=== PATIENT | female | born 1955 | race African-American/Black ===

== ENCOUNTER 2019-09-24 00:46 | Observation (INO) | payer BC ==
--- OUTSIDE RECORDS SUMMARY | 2019-09-24 00:49 | XMS REPORT | Clinical Summary ---
:1955 Author Organization [facility] Address [address] [place] [address] Care Team Providers Name Role Phone Unavailable Primary Care Provider Unavailable Allergies Active Allergy Reactions Severity Noted Date Comments Cephalexin 11/23/2016 rash Medications Medication Sig Dispensed Refills Start Date End Date Status isosorbide Take 60 mg by mouth 2 0 Active mononitrate (IMDUR) (two) times daily. 60 MG 24 hr tablet metoprolol Take 100 mg by mouth 0 Active (LOPRESSOR) 100 MG 2 (two) times daily. tabletIndications: high blood pressure amLODIPine Take 10 mg by mouth 0 Active (NORVASC) 10 MG daily. tablet lisinopril-hydroCHL Take 2 tablets by 0 Active OROthiazide mouth daily. (PRINZIDE,ZESTORETI C) 20-12.5 mg per tablet glimepiride Take 4 mg by mouth 0 Active (AMARYL) 4 MG every morning before tablet breakfast. famotidine (PEPCID) Take 1 tablet (20 mg 60 tablet 0 7 Active 20 MG tablet total) by mouth 2 (two) times daily. insulin detemir Inject 0.15 mLs (15 5 packet 0 11/27/2016 Active (LEVEMIR FLEXPEN) Units total) 100 unit/mL (3 mL) subcutaneously every InPn injection morning. Active Problems Problem Noted Date Received tissue plasminogen activator (t-PA) less than 24 hours prior to 11/24/2016 arrival Essential hypertension 11/24/2016 Mixed hyperlipidemia 11/24/2016 Acute ischemic stroke 11/23/2016 Social History Tobacco Use Types Packs/Day Years Used Date Never Smoker Smokeless Tobacco: Never Used Alcohol Use Drinks/Week oz/Week Comments Yes 1 Glasses of wine 0.6 Sex Assigned at Date Recorded Not on file Job Start Date Occupation Industry Not on file Not on file Not on file Travel History Travel Start Travel End No recent travel history available. Last Filed Vital Signs Not on file Plan of Treatment Not on file Results Not on fileafter 09/23/2018 Insurance Payer Benefit Plan / Subscriber ID Type Phone Address Group BLUE CROSS/BLUE BCBS PPO POS EPO xxxxxxxxxxxx PPO [phone] [address] [place] [address] Advance Directives For more information, please contact:[place] [id number] [place], [place] [phone] Code Status Date Activated Date Inactivated Comments Full Code 11/23/2016 11:43 AM 11/27/2016 9:42 PM This code status was determined by: Patient
--- OUTSIDE RECORDS SUMMARY | 2019-09-24 00:49 | XMS REPORT | Continuity of Care Document ---
:1955 Author Organization [facility] Care Team Providers Name Role Phone Baboom Unavailable Un available Problems Problem Status Onset Classification Date Comments Sourc e Date Reported Encounter for 11/17/19 06/01/2018 [facility] [place] screening 18 Women's mammogram for malignant neoplasm of breast Z12.31 - ENCNTR Active 08/13/19 Alfred rial SCREEN MAMMOGRAM 18 Her snider FOR MA 436 - CVA Active 10/10/19 [facility] [place] Palpitations Active 10/22/2012 [facility] Stroke Syndrome Active 10/22/2012 [facility] Type 2 Diabetes Active 10/22/2012 [facility] Complications - Uncontrolled Hyperlipidemia Active 10/22/2012 [facility] Hypertension Active 10/22/2012 [facility] Diabetes Mellitus Resolved Problem 10/18/2012 [facility] [place] HTN Resolved Problem 10/18/2012 [facility] OPID [place] Hysterectomy Resolved Problem 10/18/2012 [facility] OPI D [place] TIA Resolved Problem 10/18/2012 [facility] OPID [place] Diabetes Resolved Problem 06/01/2018 [facility] Vict ory Mellitus(Confirme Wo men's d) Essential Resolved Problem 06/01/2018 [facility] Vict ory hypertension Women's (disorder) Hysterectomy Resolved Problem 06/01/2018 [facility] V ictory (procedure) Women's Transient Resolved Problem 06/01/2018 [facility] Vict ory ischemic attack Wome n's (disorder) Medications Medication Details Route Status Patient Ordering Order Source Instructions Provider Date Aspirin 81 MG (Active) Active [facility] Oral Tablet [facility] Isosorbide (Active) Active [facility] Mononitrate ER Physician s 30 MG Oral Tablet Extended Release 24 Hour Lisinopril 20 (Active) Active [facility] MG Oral Tablet Physician s MetFORMIN HCl (Active) Active [facility] 500 MG Oral Physicians Tablet Estradiol 2 MG (Active) Active [facility] Oral Tablet [facility]icians Lantus 100 (Active) Active [facility] UNIT/ML [facility]icians Subcutaneous Solution Norvasc 10 MG (Active) Active [facility] Oral Tablet [facility] HydrALAZINE HCl (Active) Active [facility] TABS [facility] Metoprolol (Active) Active [facility] Tartrate 100 MG Physicia ns Oral Tablet Simvastatin 40 (Active) Active [facility] MG Oral Tablet Physician s HumaLOG 100 (Active) Active [facility] UN[facility] Subcutaneous Solution Allergies, Adverse Reactions, Alerts Substance Category Reaction Severity Reaction Status Date Comments S ource type Reported Keflex TABS drug drug Active [facility] allergy allergy Physicia ns Keflex Assertion Drug Active [facility] allergy [place] Women's Immunizations No Data Provided for This Section Results No Data Provided for This Section Pathology Reports No Data Provided for This Section Diagnostic Reports Report Value Date Source Breast Mammo Scrn [place] 11/12/2017 [facility] incl CAD MA BILATERAL DIGITAL SCREENING MAMMOGRAM WITH CAD: 11/12/2017 CLINICAL: /Screening. Current study was evaluated with a Range Management Specialist d Detection (CAD) system. COMPARISON:No prior exams were available for [facility]. TECHNIQUE: Mammographic view s were obtained using digital acquisition. Current study was also evaluated with a Computer Aided Detection (CAD) system. FINDINGS: The tissue of both breasts i s heterogeneously dense, which could obscure detection of small masses. No significant masses, calci fications, or other findings are seen in either breast. Intramammary lymph node in the upper outer left breast. There is a metallic foreign body in the upper in ner left breast. IMPRESSION: BENIGN RECOMMENDATION: There is no mammographic aylin dence of malignancy. A 1 year screening mammogram is recommended. This exam was interpreted at [id number] for [facility]. Rhiannon Barnes M.D. dh/:11/14/2017 10:48:44 Sales Office Administrator(s): Brayan Alvarez [facility] letter sent: BI-RADS 1/2 Dense Mammogram BI-RADS: 2 Benign Brain w/wo contrast 10/16/2012 [facility] [place] REASON FOR EXAM: 436 Stroke syndrome. COMPARISON: Head CT 08/23/19 13. MRI of the brain 08/22/2012. Reports of a head and neck CTA 08/23/2012 and an angiogram 08/25/2012 were reviewed. TECHNIQUE: Unenhanced axial and coronal MR images of the brain were performed. Postcontrast images were performed in the axial, coronal and sagittal planes. FINDINGS: The brain volume i s age-appropriate. There are scattered foci of increased signal intensity on the T2 weighted and FLAIR sequences in the cerebral white matter most pronounced in the frontal a nd parietal lobes the larges t focus measuring approximately 7 mm. Primary differential considerations include sequela of chronic small vessel ischemic disease, migraines or demyelinating disease. There are 2 adjacent evolvin g lacunar infarcts in the right thalamus each measuring approximately 3 mm demonstrating decreased signal intensity on the precontrast T1-weighted sequence and T2 hyperintens ity corresponding to the loc ation of an acute infarction on the comparison MRI examination. Currently, there is no demonstrable restricted diffusion to suggest an acute infarction. There is no demonstra ble mass, abnormal enhanceme nt, hemorrhage, extra-axial fluid collection, midline shift or herniation. There is mucosal thickening of the ethmoid sinuses. There is a 9 mm retention cyst versus polyp in the inferior left maxillary sinus. There is leftward deviation of the nasal septum. The orbits, pituita ry fossa, internal auditory canals, mastoids, craniocervical junction and calvarium are unremarkable. Flow is demonstrated in the major arteries and venous sinuses. IMPRESSION: 1. Evolving subcentimeter lacunar infarcts in th e right thalamus. 2. Otherwise there has been no significant interval change from the comparison examination performed 08/22/2012. Please correlate clinically and consider follow- up imaging as indicated. Dictation code: 14 Consultation Notes No Data Provided for This Section Discharge Summaries No Data Provided for This Section History and Physicals No Data Provided for This Section Vital Signs No Data Provided for This Section Encounters Location Location Encounter Encounter Reason Attending ADM VT Stat Source Details Type Number For Provider Date Date Visit AUDIT [id number] 10/01 /2012 Physician s LEDA [id number] Aubrey DAVIS 10/16 Active [facility] O PID CVA [place] AUDIT [id number] 10/22 /2012 Physician s INP, [id number] 11/25 10/22 [place] Provider: /2012 BENNIE Wolfe, Status: Pen, Time: 3:30 PM [facility] Outpt Diag [id number] Trudy 11/12 11/13 [facility] Outpatient Services [place] /2017 [facility] Women's Procedures Procedure Code Date Perfomer Comments Source Hysterectomy [id number] [facility] Women's Assessment and Plan No Data Provided for This Section Plan of Care Plan of Care Date Source MRI Brain w/wo contrast [id number] 10/22/2012 [facility] 12/11/2012 Routine[N] 30 Day Event Monitor Recording 09/30/2012 Routine MRI Brain w/wo contrast 10/01/2012 [facility] 12/11/2012 Routine[N] 30 Day Event Monitor Recording 09/30/2012 Routine Social History Social History Date Source No data available for this 11/13/2017 [facility] Marital History - Single 10/22/2012 [facility] (Active) Occupation: (Active) Never A Smoker (Active) Family History Value Date Source Paternal history of 10/22/2012 [facility] Howard-Rajinder Syndrome (Active) Paternal history of 10/01/2012 [facility] Howard-Rajinder Syndrome (Active) Advance Directives Order Name Results Value Date Source Advance Directives Advance Directives No Advance 10/22/2012 [facility] Directives available. Advance Directives Advance Directives No Advance 10/01/2012 [facility] Directives available. Functional Status No Data Provided for This Section
--- OUTSIDE RECORDS SUMMARY | 2019-09-24 00:50 | XMS REPORT | Continuity of Care Document ---
:1955 Author Organization [facility] t Address [address] [place] [address] Care Team Providers Name Role Phone Doctor Unassigned, Name Attending Clinician Unavailable Nneka FRAGA S Attending Clinician Alicia FRAGA Attending Clinician Krista Caraballo Attending Clinician DENYS GENTILE Attending Clinician Unavail able Alicia FRAGA Admitting Clinician DENYS GENTILE Admitting Clinician Unavail able Problems Condition Condition Condition Status Onset Resolution Last Treating Co mments Source Name Details Category Date Date Treatment Clinician Date - Diagnosis Active 2017-11-12 M emoria ENCNTR 08-12 11:27:00 l SCREEN Z. - 00:01: Feliciano n MAMMOGRAM ENCNTR 00 FOR MA SCREEN MAMMOGRAM FOR MA Active 08/12/2017 [facility] Received Received Disease [facility] plasminoge plasminoge 00:00: Me dical n n 00 Center activator activator (t-PA) (t-PA) less than less than 24 hours 24 hours prior to prior to arrival arrival Mixed Mixed Disease Active [facility] hyperlipid hyperlipid 11-24 [facility] - emia emia 00:00: Medical 00 [place] Acute Acute Disease Active [facility] ischemic ischemic 11-23 [facility] - stroke stroke 00:00: Medical 00 [place] 436 - CVA Diagnosis Active 2012-10-16 Memoria -19 10:59:00 l 436 - 00:01: Timothy CVA 00 Active 10/09/2012 [facility] [place] Diabetes Problem Resolve 2012-10-18 Me moria Mellitus d 21:11:31 l Diabetes Feliciano n Mellitus Resolved Problem 10/18/2012 [facility] [place] HTN Problem Resolve 2012-10-18 Alfred carmella d 21:11:31 l HTN [place] Resolved Problem 10/18/2012 [facility] [place] Hysterecto Problem Resolve 2012-10-18 Memoria my d 21:11:31 l [place] Hysterecto my Resolved Problem 10/18/2012 [facility] [place] TIA Problem Resolve 2012-10-18 Alfred carmella d 21:11:31 l TIA [place] Resolved Problem 10/18/2012 [facility] Diamond Diabetes Problem Resolve 2018-06-01 Me moria Mellitus(C d 11:11:51 l onfirmed) Diabetes Her snider Mellitus(C onfirmed) Resolved Problem 06/01/2018 [facility] Essential Problem Resolve 2018-06-01 M emoria hypertensi d 11:11:51 l on [place] (disorder) Essential hypertensi on (disorder) Resolved Problem 06/01/2018 [facility] Hysterecto Problem Resolve 2018-06-01 Memoria my d 11:11:51 l (procedure Feliciano n ) Hysterecto my (procedure ) Resolved Problem 06/01/2018 [facility] Transient Problem Resolve 2018-06-01 M emoria ischemic d 11:11:51 l attack Timothy (disorder) Transient ischemic attack (disorder) Resolved Problem 06/01/2018 [facility] Palpitatio Problem Active 2012-10-22 M emoria ns 09:59:17 l [place] Palpitatio ns Active 10/22/2012 [facility] Stroke Problem Active 2012-10-22 Memor ia Syndrome 09:59:17 l Stroke [place] Syndrome Active 3 [facility] Type 2 Problem Active 2012-10-22 Memor ia Diabetes 09:59:17 l With Type 2 Timothy Neurologic Diabetes al With Complicati Neurologic ons - al Uncontroll Complicati ed ons - Uncontroll ed Active 10/22/2012 [facility] Hyperlipid Problem Active 2012-10-22 M emoria emia 09:59:17 l [place] Hyperlipid emia Active 3 [facility] Hypertensi Problem Active 2012-10-22 M emoria on 09:59:17 l [place] Hypertensi on Active 10/22/2012 [facility] Encounter Problem 2018-06-01 2018-06-01 Memoria for 11-16 11:11:51 11:11:51 l screening 03:08: Timothy mammogram Encounter 40 for for malignant screening neoplasm mammogram of breast for malignant neoplasm of breast 11/16/2017 06/01/2018 [facility] Women's Allergies, Adverse Reactions, Alerts Allergy Allergy Status Severity Reaction(s) Onset Inactive Treating Comm ents Source Name Type Date Date Clinician Cephalex Propensi Active rash [facility] in ty to 11-23 [facility] - adverse 00:00: Medical reaction 00 Center s Keflex Keflex Active Memoria TABS TABS l [place] Keflex Keflex Active Memoria l [place] Family History Family Member Diagnosis Comments Start Date Stop Date Source Unknown Family Family History 2012-10-01 2012-10-01 Memori al Timothy Member 14:02:26 14:02:26 Social History Social Habit Start Date Stop Date Quantity Comments Source Sex Assigned At [facility] Social History 2012-10-22 2012-10-22 [facility] [place] 09:59:17 09:59:17 Smoking Status Start Date Stop Date Source Never smoker [facility] Medications Ordered Filled Start Stop Current Ordering Indication Dosage Frequency Signature Comments Components Source Medication Medication Date Date Medication? Clinician (SIG) Name Name famotidine Yes 20mg Q.5D Take 1 [facility] (PEPCID) 20 11-27 tablet (20 [facility] - MG tablet 00:00: mg total) Med ical 00 by mouth 2 Center (two) times daily. insulin Yes 15U QD Inject [facility] detemir 11-27 0.15 mLs [facility] - (LEVEMIR 00:00: (15 Units Medi ambreen FLEXPEN) 00 total) Center 100 unit/mL subcutaneo (3 mL) InPn usly every injection morning. amLODIPine Yes 10mg QD Take [address] (NORVASC) 902 by mouth [facility] - 10 MG 11:33: daily. Medical tablet 16 Center lisinopril- Yes 2{tbl} QD Take [address] hydroCHLORO -02 tablets by [facility] - thiazide 11:33: mouth Medical (PRINZIDE,Z 16 daily. Center ESTORETIC) 20-12.5 mg per tablet glimepiride Yes 4mg Take [address] (AMARYL) 4 902 by mouth [facility] - MG tablet 11:33: every Medical 16 morning Center before breakfast. isosorbide Yes 60mg Q.5D Take [address] mononitrate 02 by mouth 2 [facility] - (IMDUR) 60 11:33: (two) Medica l MG 24 hr 15 times Center tablet daily. metoprolol Yes high blood 100mg Q.5D Take [address] (LOPRESSOR) 9 pressure mg by Landon es - 100 MG 11:33: mouth 2 Medical tablet 15 (two) Center times daily. Aspirin 81 Yes (Active) Me moria MG Oral 8-01 l Tablet 09:59: Timothy 17 Isosorbide Yes (Active) Me moria Mononitrate 8-01 l ER 30 MG 09:59: Timothy Oral Tablet 17 Extended Release 24 Hour Lisinopril Yes (Active) Me moria 20 MG Oral 8-01 l Tablet 09:59: Timothy Kim MetFORMIN Yes (Active) Mem oria HCl 500 MG 8-01 l Oral Tablet 09:59: Feliciano magallon 17 Estradiol 2 Yes (Active) M emoria MG Oral 8-01 l Tablet 09:59: Timothy Kim Lantus 100 Yes (Active) Me moria UNIT/ML 8-01 l Subcutaneou 09:59: Feliciano magallon s Solution 17 Norvasc 10 Yes (Active) Me moria MG Oral 8-01 l Tablet 09:59: Timothy Kim HydrALAZINE Yes (Active) M emoria HCl TABS 8-01 l 09:59: [place] 17 Metoprolol Yes (Active) Me moria Tartrate 8-01 l 100 MG Oral 09:59: Feliciano n Tablet 17 Simvastatin 2012-0 Yes (Active) M emoria 40 MG Oral 8-01 l Tablet 09:59: [place] 17 HumaLOG 100 0 Yes (Active) M emoria UNIT/ML 8-01 l Subcutaneou 09:59: Feliciano n s Solution 17 Procedures Procedure Date / Time Performed Performing Clinician Sourc e Hysterectomy [facility] Plan of Care Planned Activity Planned Date Details Comments Source Future Scheduled Test 2012-10-22 09:59:17 Plan of Care [code [facility] = 46793-9] Future Scheduled Test 2012-10-01 14:02:26 Plan of Care [code [facility] = 87127-8] Encounters Start End Encounter Admission Attending Care Care Encounter Source Date/Time Date/Time Type Type Clinicians Facility Department ID 2019-05-07 2019-05-07 Orders Doctor KIA [id number] 00:00:00 00:00:00 Only Unassigned, STEFANY [id number] Media [facility] [id number] 2018-10-27 2018-10-28 Emergency Cem Early [facility] [id number] 22:44:46 20:07:00 Sussy Vargas [id number] [place] [id number] [place] [id number] 2017-11-12 2017-11-12 Outpatient Ilya [id number] 11:19:00 23:59:00 Trudy Velasco [id number] 2012-10-22 2012-10-22 Outpatient PHOEBE SANDHU [id number] 04:59:18 04:59:17 2012-10-01 2012-10-01 Outpatient PHOEBE SANDHU [id number] 09:02:50 09:02:26 Results Test Description Test Time Test Comments Results Result Comments Source POCT-GLUCOSE METER 2016-11-27 17:03:00 Test Item Value Reference Range Interpretation Comme nts POC-GLUCOSE METER ([facility]) (test 239 mg/dL 70-110 [address] 15[address]) [facility] [address] POCT-GLUCOSE [id number] 12:13:00 Test Item Value Reference Range Interpretation Comments POC-GLUCOSE METER 287 mg/dL 70-110 H TESTED AT [place] [address] ([facility]) (test code = KATHRINEONEIL Diaz [facility] 1538) [id number] POCT-GLUCOSE [id number] 07:44:00 Test Item Value Reference Range Interpretation Comments POC-GLUCOSE METER 245 mg/dL 70-110 H TESTED AT [place] [address] ([facility]) (test code = KATHRINEONEIL Diaz [facility] 1538) [id number] POCT-GLUCOSE [id number] 21:19:00 Test Item Value Reference Range Interpretation Comments POC-GLUCOSE METER 344 mg/dL 70-110 H TESTED AT [place] [address] ([facility]) (test code = PALMER Diaz [facility] 1538) [address] POCT-GLUCOSE [id number] 17:59:00 Test Item Value Reference Range Interpretation Comments POC-GLUCOSE METER 215 mg/dL 70-110 H TESTED AT [place] [address] ([facility]) (test code = KATHRINEONEIL Diaz [facility] 1538) [address] POCT-GLUCOSE [id number] 12:57:00 Test Item Value Reference Range Interpretation Comments POC-GLUCOSE METER 251 mg/dL 70-110 H TESTED AT [place] [address] ([facility]) (test code = KATHRINEONEIL Diaz [facility] 1538) [address] POCT-GLUCOSE [id number] 08:01:00 Test Item Value Reference Range Interpretation Comments POC-GLUCOSE METER 192 mg/dL 70-110 H TESTED AT [place] [address] ([facility]) (test code = KATHRINEONEIL Diaz [facility] 1538) [address] POCT-GLUCOSE [id number] 02:32:00 Test Item Value Reference Range Interpretation Comments POC-GLUCOSE METER 125 mg/dL 70-110 H TESTED AT [place] [address] ([facility]) (test code = KATHRINEONEIL Diaz [facility] 1538) [id number] POCT-GLUCOSE [id number] 20:52:00 Test Item Value Reference Range Interpretation Comments POC-GLUCOSE METER 136 mg/dL 70-110 H TESTED AT [place] [address] ([facility]) (test code = PALMER Diaz [facility] 1538) [address] POCT-GLUCOSE [id number] 16:19:00 Test Item Value Reference Range Interpretation Comments POC-GLUCOSE METER 243 mg/dL 70-110 H TESTED AT [place] [address] ([facility]) (test code = PALMER Diaz [facility] 1538) [id number] POCT-GLUCOSE [id number] 12:27:00 Test Item Value Reference Range Interpretation Comments POC-GLUCOSE METER 351 mg/dL 70-110 H Notified R Valentina FRAGA/TESTED ([facility]) (test code = AT [address] [address]) [facility] [address] 0 POCT-GLUCOSE [id number] 07:46:00 Test Item Value Reference Range Interpretation Comments POC-GLUCOSE METER 194 mg/dL 70-110 H TESTED AT [place] [address] ([facility]) (test code = PALMER Diaz [facility] 1538) [address] POCT-GLUCOSE [id number] 22:30:00 Test Item Value Reference Range Interpretation Comments POC-GLUCOSE METER 323 mg/dL 70-110 H Notified R Valentina FRAGA/TESTED ([facility]) (test code = AT [address] 1538) [facility] [address] 0 POCT-GLUCOSE [id number] 17:13:00 Test Item Value Reference Range Interpretation Comments POC-GLUCOSE METER 255 mg/dL 70-110 H TESTED AT [place] [address] ([facility]) (test code = PALMER Diaz [facility] 1538) [address] POCT-GLUCOSE [id number] 11:26:00 Test Item Value Reference Range Interpretation Comments POC-GLUCOSE METER 295 mg/dL 70-110 H TESTED AT [place] [address] ([facility]) (test code = KATHRINEAZ Joe [facility] 1538) [address] [id number] 06:49:00 Test Item Value Reference Range Interpretation Comments RPR SCREEN ([facility]) (test code = Nonreactive Nonreactive 420) POCT-GLUCOSE [id number] 06:35:00 Test Item Value Reference Range Interpretation Comments POC-GLUCOSE METER 227 mg/dL 70-110 H TESTED AT [place] [address] ([facility]) (test code = KATHRINEAZ Joe [facility] 1538) [id number] TROPONIN [id number] 01:14:00 Test Item Value Reference Range Interpretation Comments TROPONIN I (BEAKER) (test code = 0.02 ng/mL 0.00-0.03 397) Effective 02/08/2014: Reference Range ChangeNew: 0.00-0.03 Previous 0.00- 0.15Troponin I (TnI) levels must be interpreted in the context of the presenting symptoms and the clinical findings. Elevated TnI levels indicate myocardial damage, but are not specific for ischemic heart disease. Elevated TnI levels are seen in patients with other cardiac conditions (including myocarditis and congestive heartfailure), and slight TnI elevations occur in patients with other conditions, including sepsis, renalfailure, acidosis, acute neurological disease, and persistent tachyarrhythmia.FastingCOMPREHENSIVE METABOLIC PANEL 2016-11-24 01:08:00 Test Item Value Reference Range Interpretation Comments TOTAL PROTEIN 6.2 gm/dL 6.0-8.3 Specimen sligh tly (BEAKER) (test code = hemoly zed 770) ALBUMIN (BEAKER) 3.3 g/dL 3.5-5.0 L Specimen sl ightly (test code = 1145) hemolyzed ALKALINE PHOSPHATASE 95 U/L 40-150 (BEAKER) (test code = 346) BILIRUBIN TOTAL 0.7 mg/dL 0.2-1.2 Specimen sli ghtly (BEAKER) (test code = hemoly zed 377) SODIUM (BEAKER) (test 136 meq/L 136-145 code = 381) POTASSIUM (BEAKER) 3.5 meq/L 3.5-5.1 Specimen slightly (test code = 379) hemolyzed CHLORIDE (BEAKER) 104 meq/L 98-107 (test code = 382) CO2 (BEAKER) (test 25 meq/L 22-29 code = 355) BLOOD UREA NITROGEN 18 mg/dL 7-21 (BEAKER) (test code = 354) CREATININE (BEAKER) 0.77 mg/dL 0.57-1.25 Specimen slightly (test code = 358) hemolyzed GLUCOSE RANDOM 229 mg/dL 70-105 H (BEAKER) (test code = 652) CALCIUM (BEAKER) 8.8 mg/dL 8.4-10.2 (test code = 697) AST (SGOT) (BEAKER) 15 U/L 5-34 Specimen slightly (test code = 353) hemolyzed ALT (SGPT) (BEAKER) 13 U/L 6-55 Specimen slightly (test code = 347) hemolyzed EGFR (BEAKER) (test 93 mL/min/1.73 ESTIMA DARRELL GFR IS code = 1092) sq m NOT ACCURATE CREATININE CLEARANCE IN PREDICTING GLOMERULAR FILTRATION RATE . ESTIMATED GFR I S NOT APPLICABLE FOR DIALYSIS PATIEN TS. FastingLIPID [id number] 01:08:00 Test Item Value Reference Range Interpretation Comments TRIGLYCERIDES (BEAKER) 216 mg/dL Speci men slightly (test code = 540) hemolyzed CHOLESTEROL (BEAKER) 190 mg/dL Specime n slightly (test code = 631) hemolyzed HDL CHOLESTEROL (BEAKER) 52 mg/dL (test code = 976) LDL CHOLESTEROL 95 mg/dL CALCULATED (BEAKER) (test code = 633) Triglyceride Reference Range: Low Risk <150 Borderline 150-199 High Risk 200-499 Very High Risk >=500Cholesterol Reference Range: Low Risk <200 Borderline 200-239 High Risk >240HDL Cholesterol Reference Range: Low Risk >=60 High Risk <40LDL Cholesterol Reference Range: Optimal <100 Near Optimal 100-129 Borderline 130-159 High 160-189 Very High >=190 FastingCBC W/PLT COUNT & AUTO [id number] 00:49:00 Test Item Value Reference Range Interpretation Comments WHITE BLOOD CELL COUNT (BEAKER) 8.5 K/ L 3.5-10.5 (test code = 775) RED BLOOD CELL COUNT (BEAKER) 4.72 M/ L 3.93-5.22 (test code = 761) HEMOGLOBIN (BEAKER) (test code = 13.5 GM/DL 11.2-15.7 410) HEMATOCRIT (BEAKER) (test code = 37.7 % 34.1-44.9 411) MEAN CORPUSCULAR VOLUME (BEAKER) 79.9 fL 79.4-94.8 (test code = 753) MEAN CORPUSCULAR HEMOGLOBIN 28.6 pg 25.6-32.2 (BEAKER) (test code = 751) MEAN CORPUSCULAR HEMOGLOBIN CONC 35.8 GM/DL 32.2-35.5 H (BEAKER) (test code = 752) RED CELL DISTRIBUTION WIDTH 12.6 % 11.7-14.4 (BEAKER) (test code = 412) PLATELET COUNT (BEAKER) (test 289 K/CU MM 150-450 code = 756) MEAN PLATELET VOLUME (BEAKER) 10.7 fL 9.4-12.3 (test code = 754) NUCLEATED RED BLOOD CELLS 0 /100 WBC 0-0 (BEAKER) (test code = 413) NEUTROPHILS RELATIVE PERCENT 45 % (BEAKER) (test code = 429) LYMPHOCYTES RELATIVE PERCENT 43 % (BEAKER) (test code = 430) MONOCYTES RELATIVE PERCENT 8 % (BEAKER) (test code = 431) EOSINOPHILS RELATIVE PERCENT 3 % (BEAKER) (test code = 432) BASOPHILS RELATIVE PERCENT 1 % (BEAKER) (test code = 437) NEUTROPHILS ABSOLUTE COUNT 3.86 K/ L 1.56-6.13 (BEAKER) (test code = 670) LYMPHOCYTES ABSOLUTE COUNT 3.68 K/ L 1.18-3.74 (BEAKER) (test code = 414) MONOCYTES ABSOLUTE COUNT (BEAKER) 0.65 K/ L 0.24-0.36 H (test code = 415) EOSINOPHILS ABSOLUTE COUNT 0.26 K/ L 0.04-0.36 (BEAKER) (test code = 416) BASOPHILS ABSOLUTE COUNT (BEAKER) 0.06 K/ L 0.01-0.08 (test code = 417) IMMATURE GRANULOCYTES-RELATIVE 0 % 0-1 PERCENT (BEAKER) (test code = 2801) (MANUAL DIFFERENTIAL)2016-11-24 00:49:00 Test Item Value Reference Range Interpretation Comments TOTAL COUNTED (BEAKER) (test code = 1351) WBC MORPHOLOGY (BEAKER) (test code = Normal 487) PLT MORPHOLOGY (BEAKER) (test code = Normal 486) RBC MORPHOLOGY (BEAKER) (test code = Normal 762) POCT-GLUCOSE [id number] 22:35:00 Test Item Value Reference Range Interpretation Comments POC-GLUCOSE METER 274 mg/dL 70-110 H TESTED AT [facility] 6720 (BEAKER) (test code = [place] 1538) [address] POCT-GLUCOSE [id number] 17:32:00 Test Item Value Reference Range Interpretation Comments POC-GLUCOSE METER 367 mg/dL 70-110 H Notified R Valentina FRAGA/TESTED (BEAKER) (test code = AT [facility] [address] 1538) [facility] [address] HEMOGLOBIN [id number] 16:47:00 Test Item Value Reference Range Interpretation Comments HEMOGLOBIN A1C 9.5 % 4.3-6.1 H POSSIBLE HEMO GLOBIN C (BEAKER) (test code = VARIAN T NOTED IN 368) HEMOGLOBIN A1C CHROMATOGRAPH. SUGGEST HEMOGLOBIN ELEC TROPHORESIS IF CLINICALLY I NDICATED. VITAMIN [id number] 13:17:00 Test Item Value Reference Range Interpretation Comments VITAMIN B12 (BEAKER) (test code = 633 pg/mL 213-816 774) TSH/FREE T4 IF [id number] 13:17:00 Test Item Value Reference Range Interpretation Comments THYROID STIMULATING HORMONE 0.78 uIU/mL 0.35-4.94 (BEAKER) (test code = 772) TROPONIN [id number] 12:56:00 Test Item Value Reference Range Interpretation Comments TROPONIN I (BEAKER) (test code = 0.03 ng/mL 0.00-0.03 397) Effective 02/08/2014: Reference Range ChangeNew: 0.00-0.03 Previous 0.00- 0.15Troponin I (TnI) levels must be interpreted in the context of the presenting symptoms and the clinical findings. Elevated TnI levels indicate myocardial damage, but are not specific for ischemic heart disease. Elevated TnI levels are seen in patients with other cardiac conditions (including myocarditis and congestive heartfailure), and slight TnI elevations occur in patients with other conditions, including sepsis, renalfailure, acidosis, acute neurological disease, and persistent tachyarrhythmia.BASIC METABOLIC [id number] 12:48:00 Test Item Value Reference Range Interpretation Comments SODIUM (BEAKER) 139 meq/L 136-145 (test code = 381) POTASSIUM (BEAKER) 3.7 meq/L 3.5-5.1 (test code = 379) CHLORIDE (BEAKER) 104 meq/L 98-107 (test code = 382) CO2 (BEAKER) (test 26 meq/L 22-29 code = 355) BLOOD UREA NITROGEN 16 mg/dL 7-21 (BEAKER) (test code = 354) CREATININE (BEAKER) 0.84 mg/dL 0.57-1.25 (test code = 358) GLUCOSE RANDOM 346 mg/dL 70-105 H (BEAKER) (test code = 652) CALCIUM (BEAKER) 8.9 mg/dL 8.4-10.2 (test code = 697) EGFR (BEAKER) (test 84 mL/min/1.73 ESTIMA DARRELL GFR IS code = 1092) sq m NOT ACCURATE CREATININE CLEARANCE IN PREDICTING GLOMERULAR FILTRATION RATE . ESTIMATED GFR I S NOT APPLICABLE FOR DIALYSIS PATIEN TS. POCT-GLUCOSE [id number] 12:44:00 Test Item Value Reference Range Interpretation Comments POC-GLUCOSE METER 322 mg/dL 70-110 H Notified R Valentina MD/TESTED (BEAKER) (test code = AT [facility] [address] [facility] 1687) [place] [address] CBC W/PLT COUNT & AUTO [id number] 12:32:00 Test Item Value Reference Range Interpretation Comments WHITE BLOOD CELL COUNT (BEAKER) 8.9 K/ L 3.5-10.5 (test code = 775) RED BLOOD CELL COUNT (BEAKER) 5.05 M/ L 3.93-5.22 (test code = 761) HEMOGLOBIN (BEAKER) (test code = 14.4 GM/DL 11.2-15.7 410) HEMATOCRIT (BEAKER) (test code = 40.5 % 34.1-44.9 411) MEAN CORPUSCULAR VOLUME (BEAKER) 80.2 fL 79.4-94.8 (test code = 753) MEAN CORPUSCULAR HEMOGLOBIN 28.5 pg 25.6-32.2 (BEAKER) (test code = 751) MEAN CORPUSCULAR HEMOGLOBIN CONC 35.6 GM/DL 32.2-35.5 H (BEAKER) (test code = 752) RED CELL DISTRIBUTION WIDTH 12.7 % 11.7-14.4 (BEAKER) (test code = 412) PLATELET COUNT (BEAKER) (test 289 K/CU MM 150-450 code = 756) MEAN PLATELET VOLUME (BEAKER) 10.7 fL 9.4-12.3 (test code = 754) NUCLEATED RED BLOOD CELLS 0 /100 WBC 0-0 (BEAKER) (test code = 413) NEUTROPHILS RELATIVE PERCENT 63 % (BEAKER) (test code = 429) LYMPHOCYTES RELATIVE PERCENT 27 % (BEAKER) (test code = 430) MONOCYTES RELATIVE PERCENT 8 % (BEAKER) (test code = 431) EOSINOPHILS RELATIVE PERCENT 2 % (BEAKER) (test code = 432) BASOPHILS RELATIVE PERCENT 1 % (BEAKER) (test code = 437) NEUTROPHILS ABSOLUTE COUNT 5.59 K/ L 1.56-6.13 (BEAKER) (test code = 670) LYMPHOCYTES ABSOLUTE COUNT 2.38 K/ L 1.18-3.74 (BEAKER) (test code = 414) MONOCYTES ABSOLUTE COUNT (BEAKER) 0.68 K/ L 0.24-0.36 H (test code = 415) EOSINOPHILS ABSOLUTE COUNT 0.13 K/ L 0.04-0.36 (BEAKER) (test code = 416) BASOPHILS ABSOLUTE COUNT (BEAKER) 0.05 K/ L 0.01-0.08 (test code = 417) IMMATURE GRANULOCYTES-RELATIVE 0 % 0-1 PERCENT (BEAKER) (test code = 5171)
[2019-09-24] MEDS ORDERED: ALTEPLASE 0 ML IV ONE (01:05)
[2019-09-24] MEDS ORDERED: NA CHLORIDE 0.9% 1,000 ML ONE ×2 (01:05→03:19)
[2019-09-24 01:23] LABS: Absolute Lymphocytes (CBC) 2.3 K/uL (0.7-4.9); Basophils % 0.8 % (0-1.3); Hematocrit 41.6 % (36.0-45.0); Lymphocytes % 21.8 % (15.3-44.8); MPV 9.1 fL (7.6-11.3); RBC Red Blood Cell Count 4.75 M/uL (3.86-4.86)
[2019-09-24 01:31] LABS: Protime INR 0.78
[2019-09-24 01:49] LABS: Potassium 4.9 mmol/L (3.5-5.1); Troponin (Emerg Dept Use Only) 0.02 ng/mL (0.0-0.045)
--- NOTE | 2019-09-24 02:56 | ER ---
Nurse's Notes [facility] Name: Aziza Rich Age: 64 yrs Sex: Female : 1955 Arrival Date: 09/24/2019 Time: 00:47 Bed 7 Private MD: Diagnosis: Hyperglycemia, unspecified;Transient ischemic attack Presentation: 09/23 01:08 Chief complaint: Patient states: "I woke up and was feeling weird about an hour ago. I jd3 had gotten myself to the kitchen, but I I needed help getting back to the other room. it is like I couldn't control my left side. it is similar to when I had a previous stroke. I checked my blood sugar and the monitor just read high.". Coronavirus screen: Proceed with normal triage. Ebola Screen: Patient negative for fever greater than or equal to 101.5 degrees Fahrenheit, and additional compatible Ebola Virus Disease symptoms. An acute neurological deficit is present. The charge nurse has been notified. Pre-hospital glucose is not applicable to this patient. Initial Sepsis Screen: Does the patient meet any 2 criteria? No. Patient's initial sepsis screen is negative. Does the patient have a suspected source of infection? No. Patient's initial sepsis screen is negative. Risk Assessment: Do you want to hurt yourself or someone else? Patient reports no desire to harm self or others. Onset of symptoms was September 24, 2019. 01:08 Method Of Arrival: Wheelchair jd3 01:08 Acuity: CHRISTY 2 jd3 Triage Assessment: 01:00 General: Appears comfortable, Behavior is calm, cooperative. rv 01:00 Pain: Denies pain. EENT: No signs and/or symptoms were reported regarding the EENT rv system. Neuro: Level of Consciousness is awake, alert, obeys commands, Oriented to person, place, time, situation, Reports weakness in left arm and left leg. Cardiovascular: Patient's skin is warm and dry. Rhythm is sinus rhythm. Respiratory: Airway is patent Respiratory effort is even, unlabored, Breath sounds are clear bilaterally. 01:00 Derm: Skin is intact. Musculoskeletal: No signs and/or symptoms reported regarding the rv musculoskeletal system. 01:16 The onset of the patients symptoms was September 23, 2019 at 21:00. jd3 Stroke Activation: Symtpom onset >3 hours and < 6 hours Physician: Stroke Attending; Name: ; Notified At: ; Arrived At: Physician: Chief Stroke Resident; Name: ; Notified At: ; Arrived At: Physician: Stroke Resident; Name: ; Notified At: ; Arrived At: Physician: ED Attending; Name: Linda; Notified At: 00:51; Arrived At: 00:51 Physician: ED Resident; Name: ; Notified At: ; Arrived At: Historical: - Allergies: 01:13 Keflex; jd3 - PMHx: 01:13 Diabetes - IDDM; Hyperlipidemia; Hypertension; Multiple Sclerosis; Sleep Apnea; TIA jd3 2013 \\T\\ 2014; - PSHx: 01:13 Foot sx; Hysterectomy; jd3 - Immunization history:: Adult Immunizations up to date. - Social history:: Smoking status: unknown. Screenin:18 Abuse screen: Denies threats or abuse. Nutritional screening: No deficits noted. jd3 Tuberculosis screening: No symptoms or risk factors identified. Fall Risk Ambulatory Aid- None/Bed Rest/Nurse Assist (0 pts). Gait- Normal/Bed Rest/Wheelchair (0 pts) Mental Status- Oriented to own ability (0 pts). Total Garcia Fall Scale indicates No Risk (0-24 pts). Assessment: 01:14 VAN Scoring: Arm Drift: Minor drift Visual Disturbance: No visual disturbance noted. jd3 Aphasia: No aphasia noted. Neglect: No neglect noted. The patient has not been NPO before screening. The patient is currently on the following diet: regular The patient is alert, and able to follow commands. The patient does not exhibit slurred or garbled speech. The patient is not exhibiting difficulty speaking. The patient is exhibiting difficulty understanding words. The patient is able to swallow own secretions with no drooling or need for suction. Patient tolerated one teaspoon of water. No drooling, immediate coughing, gurgling, or clearing of the throat was noted. The patient tolerated 90mL of water. No drooling, immediate coughing, gurgling, or clearing of the throat was noted. The patient passed the bedside swallow screening. Oral medications may be given as ordered. Contact Physician for further diet orders. Provider notified of bedside swallow screening results: Francisco Beckett RN. T-PA (Activase) Screening: Contraindications: Other: symptoms greater than 4 hours. 01:54 Reassessment: Patient and/or family updated on plan of care and expected duration. Pain jd3 level reassessed. Patient is alert, oriented x 3, equal unlabored respirations, skin warm/dry/pink. Patient states feeling better. 04:13 Reassessment: report given to Sherine RN, nurse for room 224. jd3 Vital Signs: 01:13 BP 186 / 80; Pulse 82; Resp 16 S; Temp 98.8(TE); Pulse Ox 100% on R/A; Weight 84.59 kg jd3 (R); Height 5 ft. 2 in. (157.48 cm) (R); Pain 2/10; 01:54 BP 149 / 56; Pulse 71; Resp 16 S; Pulse Ox 100% on R/A; jd3 03:00 BP 141 / 59; Pulse 62; Resp 16; Pulse Ox 100% on R/A; rv 04:00 BP 152 / 51; Pulse 67; Resp 15; Temp 98.5; Pulse Ox 98% on R/A; rv 01:13 Body Mass Index 34.11 (84.59 kg, 157.48 cm) jd3 Sar[place]osa Coma Score: 02:00 Eye Response: spontaneous(4). Verbal Response: oriented(5). Motor Response: obeys rv commands(6). Total: 15. 03:00 Eye Response: spontaneous(4). Verbal Response: oriented(5). Motor Response: obeys rv commands(6). Total: 15. 04:00 Eye Response: spontaneous(4). Verbal Response: oriented(5). Motor Response: obeys rv commands(6). Total: 15. NIH Stroke Scale Scores: 01:14 NIHSS Score: 6 jd3 01:54 NIHSS Score: 2 jd3 02:55 NIHSS Score: 1 jd3 03:46 NIHSS Score: 4 tw4 ED Course: 00:47 Patient arrived in ED. bp1 01:06 Raúl Mckeon MD is Attending Physician. tw4 01:10 Inserted saline lock: 18 gauge in right antecubital area, using aseptic technique. rv Blood collected. 01:10 Initial lab(s) drawn, by me, sent to lab. rv 01:12 Triage completed. jd3 01:12 CT-STROKE BRAIN W/O CONTRAST CT In Process Unspecified. EDMS 01:14 Francisco Beckett, BENNY is Primary Nurse. rv 01:14 Arm band placed on. jd3 01:18 Patient has correct armband on for positive identification. Placed in gown. Bed in low jd3 position. Call light in reach. Side rails up X2. media monitor on. Pulse ox on. NIBP on. 01:31 Stroke CXR 1 View In Process Unspecified. EDMS 02:53 Miguel Becerra MD is Hospitalizing Provider. tw4 04:14 No provider procedures requiring assistance completed. IV is patent, with fluids rv infusing freely, with good blood return, Patient admitted, IV remains in place. Administered Medications: 03:16 Drug: Insulin Drip - (Insulin Regular Human 100 units, NS 0.9% 100 ml) {Co-Signature: rv jd3 (Giuseppe Hackett RN).} Route: IV; Rate: 8 units/hr; Site: right antecubital; 04:16 Follow up: IV Status: IV converted to saline lock rv 04:16 Follow up: IV Status: Order to discontinue infusion rv 03:31 Drug: NS 0.9% 1000 ml Route: IV; Rate: 1 bolus; Site: right antecubital; rv 04:16 Follow up: IV Status: Completed infusion; IV Intake: 1000ml rv Point of Care Testing: Blood Glucose: 01:13 Blood Glucose: High (>450 mg/dL); jd3 Ranges: Intake: 04:16 IV: 1000ml; Total: 1000ml. rv Outcome: 02:55 Decision to Hospitalize by Provider. tw4 04:15 Admitted to Med/surg accompanied by nurse, room 224, with chart, Report called to rv DESTINEY ZAPATA 04:15 Condition: good 04:15 Instructed on the need for admit. 04:17 Patient left the ED. rv NIH Stroke Scale - NIH Stroke Score Date: 09/24/2019 Time: 01:14 Total Score = 6 1a. Level of Consciousness (LOC) - 0(Alert) 1b. Level of Consciousness (LOC) (Year \\T\\ Age) - 0(Both) 1c. LOC Commands (Open \\T\\ Closes Eyes/Oil Well Driller) - 0(Both) 2. Best Gaze (Lateral Gaze Paresis) - 0(Normal) 3. Visual Field Loss - 0(No visual loss) 4. Facial Palsy - 0(Normal) 5a. Left Arm: Motor (10-second hold) - 1(Drift) 5b. Right Arm: Motor (10-second hold) - 0(No drift) 6a. Left Leg: Motor (5-second hold - always test supine) - 2(Drift, some effort against gravity) 6b. Right Leg: Motor (5-second hold - always test supine) - 0(No drift) 7. Limb Ataxia (finger/nose \\T\\ heel/suazo - test with eyes open) - 2(Present in two limbs) 8. Sensory Loss (pinprick arms/legs/face) - 1(Mild to moderate loss) 9. Best Language: Aphasia (description/naming/reading) - 0(No aphasia) 10. Dysarthria (speech clarity - read or repeat words) - 0(Normal) 11. Extinction and Inattention (visual/tactile/auditory/spatial/personal) - 0(No abnormality) Initials: jd3 NIH Stroke Scale - NIH Stroke Score Date: 09/24/2019 Time: 01:54 Total Score = 2 1a. Level of Consciousness (LOC) - 0(Alert) 1b. Level of Consciousness (LOC) (Year \\T\\ Age) - 0(Both) 1c. LOC Commands (Open \\T\\ Closes Eyes/Oil Well Driller) - 0(Both) 2. Best Gaze (Lateral Gaze Paresis) - 0(Normal) 3. Visual Field Loss - 0(No visual loss) 4. Facial Palsy - 0(Normal) 5a. Left Arm: Motor (10-second hold) - 0(No drift) 5b. Right Arm: Motor (10-second hold) - 0(No drift) 6a. Left Leg: Motor (5-second hold - always test supine) - 1(Drift) 6b. Right Leg: Motor (5-second hold - always test supine) - 0(No drift) 7. Limb Ataxia (finger/nose \\T\\ heel/suazo - test with eyes open) - 1(Present in one limb) 8. Sensory Loss (pinprick arms/legs/face) - 0(Normal) 9. Best Language: Aphasia (description/naming/reading) - 0(No aphasia) 10. Dysarthria (speech clarity - read or repeat words) - 0(Normal) 11. Extinction and Inattention (visual/tactile/auditory/spatial/personal) - 0(No abnormality) Initials: jd3 NIH Stroke Scale - NIH Stroke Score Date: 09/24/2019 Time: 02:55 Total Score = 1 1a. Level of Consciousness (LOC) - 0(Alert) 1b. Level of Consciousness (LOC) (Year \\T\\ Age) - 0(Both) 1c. LOC Commands (Open \\T\\ Closes Eyes/Oil Well Driller) - 0(Both) 2. Best Gaze (Lateral Gaze Paresis) - 0(Normal) 3. Visual Field Loss - 0(No visual loss) 4. Facial Palsy - 0(Normal) 5a. Left Arm: Motor (10-second hold) - 0(No drift) 5b. Right Arm: Motor (10-second hold) - 0(No drift) 6a. Left Leg: Motor (5-second hold - always test supine) - 1(Drift) 6b. Right Leg: Motor (5-second hold - always test supine) - 0(No drift) 7. Limb Ataxia (finger/nose \\T\\ heel/suazo - test with eyes open) - 0(Absent) 8. Sensory Loss (pinprick arms/legs/face) - 0(Normal) 9. Best Language: Aphasia (description/naming/reading) - 0(No aphasia) 10. Dysarthria (speech clarity - read or repeat words) - 0(Normal) 11. Extinction and Inattention (visual/tactile/auditory/spatial/personal) - 0(No abnormality) Initials: jd3 NIH Stroke Scale - NIH Stroke Score Date: 09/24/2019 Time: 03:46 Total Score = 4 1a. Level of Consciousness (LOC) - 0(Alert) 1b. Level of Consciousness (LOC) (Year \\T\\ Age) - 0(Both) 1c. LOC Commands (Open \\T\\ Closes Eyes/Oil Well Driller) - 0(Both) 2. Best Gaze (Lateral Gaze Paresis) - 0(Normal) 3. Visual Field Loss - 0(No visual loss) 4. Facial Palsy - 0(Normal) 5a. Left Arm: Motor (10-second hold) - 1(Drift) 5b. Right Arm: Motor (10-second hold) - 0(No drift) 6a. Left Leg: Motor (5-second hold - always test supine) - 3(No effort against gravity) 6b. Right Leg: Motor (5-second hold - always test supine) - 0(No drift) 7. Limb Ataxia (finger/nose \\T\\ heel/suazo - test with eyes open) - 0(Absent) 8. Sensory Loss (pinprick arms/legs/face) - 0(Normal) 9. Best Language: Aphasia (description/naming/reading) - 0(No aphasia) 10. Dysarthria (speech clarity - read or repeat words) - 0(Normal) 11. Extinction and Inattention (visual/tactile/auditory/spatial/personal) - 0(No abnormality) Initials: tw4 Signatures: Dispatcher [employer] Giuseppe Brennan RN RN jd3 Raúl Mckeon MD MD tw4 Francisco Beckett RN RN rv Paniauga, Brittany bp1 Jonathon Davies RN jd3 Corrections: (The following items were deleted from the chart) 01:22 01:14 T-PA (Activase) Screening: Contraindications: Patient reports onset of jd3 signs and symptoms of stroke greater than 6 hours ago: Yes. jd3 01:08 Chief complaint: Patient states: "I woke up and was feeling weird about jd3 an hour ago. I had gotten myself to the kitchen, but I I needed help getting back to the other room. it is like I couldn't control my left side. it is similar to when I had a previous stroke. I checked my blood sugar and the monitor just read high." jd3 01:16 The onset of the patients symptoms was September 23, 2019 at 21:30 jsierra jsierra
--- NOTE | 2019-09-24 02:56 | EDPHYS ---
Physician Documentation [facility] Name: Aziza Rich Age: 64 yrs Sex: Female : 1955 Arrival Date: 09/24/2019 Time: 00:47 Bed 7 Private MD: ED Physician Raúl Mckeon HPI: 09/23 03:46 This 64 yrs old Black Female presents to ER via Wheelchair with complaints of Left tw4 sided weakness, S/S of Possible Stroke. 03:46 The patient's problem is reported as weakness, in the left upper extremity, in the left tw4 lower extremity. Onset: The symptoms/episode began/occurred just prior to arrival. Duration: The episode is continuous. Context: symptoms became apparent upon waking, occurred at home. The symptoms are aggravated by standing, walking. Associated signs and symptoms: The patient has no apparent associated signs or symptoms. Severity of symptoms: At their worst the symptoms were moderate in the emergency department the symptoms are unchanged. The patient has not experienced similar symptoms in the past. Historical: - Allergies: 01:13 Keflex; jd3 - PMHx: 01:13 Diabetes - IDDM; Hyperlipidemia; Hypertension; Multiple Sclerosis; Sleep Apnea; TIA jd3 2013 \T\ 2014; - PSHx: 01:13 Foot sx; Hysterectomy; jd3 - Immunization history:: Adult Immunizations up to date. - Social history:: Smoking status: unknown. ROS: 03:46 Constitutional: Negative for fever, chills, and weight loss, Eyes: Negative for injury, tw4 pain, redness, and discharge, Cardiovascular: Negative for chest pain, palpitations, and edema, Respiratory: Negative for shortness of breath, cough, wheezing, and pleuritic chest pain, Abdomen/GI: Negative for abdominal pain, nausea, vomiting, diarrhea, and constipation, MS/Extremity: Negative for injury and deformity, Skin: Negative for injury, rash, and discoloration. 03:46 Neuro: Positive for weakness, Negative for altered mental status, dizziness, headache, numbness, seizure activity, speech changes, syncope, tinnitus, tremor. Exam: 03:46 Radiologist reports: no acute changes tw4 03:46 Constitutional: This is a well developed, well nourished patient who is awake, alert, and in no acute distress. Head/Face: Normocephalic, atraumatic. Chest/axilla: Normal chest wall appearance and motion. Nontender with no deformity. No lesions are appreciated. Cardiovascular: Regular rate and rhythm with a normal S1 and S2. No gallops, murmurs, or rubs. Normal PMI, no JVD. No pulse deficits. Respiratory: Lungs have equal breath sounds bilaterally, clear to auscultation and percussion. No rales, rhonchi or wheezes noted. No increased work of breathing, no retractions or nasal flaring. Abdomen/GI: Soft, non-tender, with normal bowel sounds. No distension or tympany. No guarding or rebound. No evidence of tenderness throughout. Back: No spinal tenderness. No costovertebral tenderness. Full range of motion. MS/ Extremity: Pulses equal, no cyanosis. Neurovascular intact. Full, normal range of motion. 03:46 Neuro: Orientation: is normal, Mentation: is normal, Memory: is normal, Cranial nerves: grossly normal, Motor: strength is 4/5 in the left arm, Strength is 3/5 in the left leg, Sensation: light touch is decreased in the forehead, left cheek, left arm and left leg. Vital Signs: 01:13 BP 186 / 80; Pulse 82; Resp 16 S; Temp 98.8(TE); Pulse Ox 100% on R/A; Weight 84.59 kg jd3 (R); Height 5 ft. 2 in. (157.48 cm) (R); Pain 2/10; 01:54 BP 149 / 56; Pulse 71; Resp 16 S; Pulse Ox 100% on R/A; jd3 03:00 BP 141 / 59; Pulse 62; Resp 16; Pulse Ox 100% on R/A; rv 04:00 BP 152 / 51; Pulse 67; Resp 15; Temp 98.5; Pulse Ox 98% on R/A; rv 01:13 Body Mass Index 34.11 (84.59 kg, 157.48 cm) jd3 NIH Stroke Scale Scores: 01:14 NIHSS Score: 6 jd3 01:54 NIHSS Score: 2 jd3 02:55 NIHSS Score: 1 jd3 03:46 NIHSS Score: 4 tw4 Monty Coma Score: 02:00 Eye Response: spontaneous(4). Verbal Response: oriented(5). Motor Response: obeys rv commands(6). Total: 15. 03:00 Eye Response: spontaneous(4). Verbal Response: oriented(5). Motor Response: obeys rv commands(6). Total: 15. 04:00 Eye Response: spontaneous(4). Verbal Response: oriented(5). Motor Response: obeys rv commands(6). Total: 15. MDM: 01:06 Patient medically screened. tw4 03:46 Differential diagnosis: CVA, TIA. Data reviewed: vital signs, nurses notes, lab test tw4 result(s), cardiac enzymes, CBC, hepatic panel, radiologic studies, CT scan, plain films. Data interpreted: Pulse oximetry: Interpretation: normal. Test interpretation: by ED physician or midlevel provider: not applicable. Counseling: I had a detailed discussion with the patient and/or guardian regarding: the historical points, exam findings, and any diagnostic results supporting the discharge/admit diagnosis, lab results, radiology results. Physician consultation: Miguel Becerra MD regarding admission, to the telemetry unit. patient's condition, and will see patient in ED. 09/23 01:08 Order name: Troponin (emerg Dept Use Only) tw4 09/23 01:08 Order name: Basic Metabolic Panel tw4 09/23 01:08 Order name: CBC with Diff; Complete Time: 02:51 tw4 09/23 02:51 Interpretation: Normal except: MCV 87.6. tw09/23 01:08 Order name: Protime (+inr); Complete Time: 02:51 tw4 09/23 02:52 Interpretation: Normal except: PT 9.3. 09/23 01:08 Order name: Ptt, Activated; Complete Time: 02:51 tw4 09/23 02:52 Interpretation: Normal except: PTT 22.2. 4 09/23 01:08 Order name: Troponin (Emerg Dept Use Only); Complete Time: 02:51 EDMS 09/23 02:53 Interpretation: Within normal limits: TROPED 0.02. 09/23 01:09 Order name: Basic Metabolic Panel; Complete Time: 02:51 EDMS 09/23 02:52 Interpretation: Normal except: NA 133; CL 97; GLUC 672; BUN 56; CRE 2.01; GFR 30. tw09/23 01:37 Order name: Glucose, Ancillary Testing; Complete Time: 02:51 EDMS 09/23 02:52 Interpretation: Abnormal: GLUC,ANCIL > 500. tw4 09/23 02:53 Order name: Osmolality, Serum snw 09/23 02:54 Order name: TSH snw 09/23 03:31 Order name: Lipid Profile EDRI 09/23 03:33 Order name: Hemoglobin A1c EDRI 09/23 03:33 Order name: Lactate EDRI 09/23 04:13 Order name: Glucose, Ancillary Testing EDRI 09/23 00:57 Order name: CT-STROKE BRAIN W/O CONTRAST CT 09/23 01:08 Order name: Stroke CXR 1 View tw4 09/23 01:08 Order name: EKG; Complete Time: 01:09 tw4 09/23 01:08 Order name: Accucheck; Complete Time: 01:41 tw4 09/23 03:32 Order name: Physical Therapy Consult EDRI 09/23 03:32 Order name: NPO EDRI 09/23 03:32 Order name: NPO EDRI 09/23 03:32 Order name: NPO EDRI 09/23 03:32 Order name: Echo with Doppler EDRI 09/23 03:32 Order name: EKG Electrocardiogram EDRI 09/23 03:32 Order name: Stroke Protocol EDRI 09/23 03:32 Order name: Speech Therapy Consult EDRI 09/23 03:33 Order name: Carotid Artery Bilateral EDRI 09/23 01:08 Order name: Cardiac monitoring; Complete Time: 01:19 tw4 09/23 01:08 Order name: EKG - Nurse/Tech; Complete Time: 01:41 tw4 09/23 01:08 Order name: IV Saline Lock; Complete Time: 01:19 tw4 09/23 01:08 Order name: Labs collected and sent; Complete Time: 01:19 tw4 09/23 01:08 Order name: NPO; Complete Time: 01:19 tw4 09/23 01:08 Order name: O2 Per Protocol; Complete Time: 01:19 tw4 09/23 01:08 Order name: O2 Sat Monitoring; Complete Time: 01:19 tw4 09/23 01:08 Order name: Stroke Swallow Screen; Complete Time: 01:19 tw4 09/23 02:53 Order name: NPO; Complete Time: 02:59 snw 09/23 02:53 Order name: FSBS: hourly; Complete Time: 04:16 snw EC:16 Rate is 71 beats/min. Rhythm is regular. QRS [place] is Normal. IL interval is normal. QRS tw4 interval is normal. QT interval is normal. No Q waves. T waves are Normal. No ST changes noted. Clinical impression: NSR w/ Non-specific ST/T Changes and LVH. Interpreted by me. Reviewed by me. Administered Medications: 03:16 Drug: Insulin Drip - (Insulin Regular Human 100 units, NS 0.9% 100 ml) {Co-Signature: rv jd3 (Giuseppe Hackett RN).} Route: IV; Rate: 8 units/hr; Site: right antecubital; 04:16 Follow up: IV Status: IV converted to saline lock rv 04:16 Follow up: IV Status: Order to discontinue infusion rv 03:31 Drug: NS 0.9% 1000 ml Route: IV; Rate: 1 bolus; Site: right antecubital; rv 04:16 Follow up: IV Status: Completed infusion; IV Intake: 1000ml rv Point of Care Testing: Blood Glucose: 01:13 Blood Glucose: High (>450 mg/dL); jd3 Ranges: Critical Glucose Levels:Adult <50 mg/dl or >400 mg/dl <40 mg/dl or >180 mg/dl Disposition: 09/24/19 02:55 Hospitalization ordered by Miguel Becerra for Inpatient Admission. Preliminary diagnosis are Hyperglycemia, unspecified, Transient ischemic attack. - Bed requested for Telemetry/MedSurg (Inpatient). - Status is Inpatient Admission. rv - Condition is Stable. - Problem is new. - Symptoms have improved. NIH Stroke Scale - NIH Stroke Score Date: 09/24/2019 Time: 01:14 Total Score = 6 1a. Level of Consciousness (LOC) - 0(Alert) 1b. Level of Consciousness (LOC) (Year \T\ Age) - 0(Both) 1c. LOC Commands (Open \T\ Closes Eyes/Lime Plant Operator) - 0(Both) 2. Best Gaze (Lateral Gaze Paresis) - 0(Normal) 3. Visual Field Loss - 0(No visual loss) 4. Facial Palsy - 0(Normal) 5a. Left Arm: Motor (10-second hold) - 1(Drift) 5b. Right Arm: Motor (10-second hold) - 0(No drift) 6a. Left Leg: Motor (5-second hold - always test supine) - 2(Drift, some effort against gravity) 6b. Right Leg: Motor (5-second hold - always test supine) - 0(No drift) 7. Limb Ataxia (finger/nose \T\ heel/suazo - test with eyes open) - 2(Present in two limbs) 8. Sensory Loss (pinprick arms/legs/face) - 1(Mild to moderate loss) 9. Best Language: Aphasia (description/naming/reading) - 0(No aphasia) 10. Dysarthria (speech clarity - read or repeat words) - 0(Normal) 11. Extinction and Inattention (visual/tactile/auditory/spatial/personal) - 0(No abnormality) Initials: jd3 NIH Stroke Scale - NIH Stroke Score Date: 09/24/2019 Time: 01:54 Total Score = 2 1a. Level of Consciousness (LOC) - 0(Alert) 1b. Level of Consciousness (LOC) (Year \T\ Age) - 0(Both) 1c. LOC Commands (Open \T\ Closes Eyes/Lime Plant Operator) - 0(Both) 2. Best Gaze (Lateral Gaze Paresis) - 0(Normal) 3. Visual Field Loss - 0(No visual loss) 4. Facial Palsy - 0(Normal) 5a. Left Arm: Motor (10-second hold) - 0(No drift) 5b. Right Arm: Motor (10-second hold) - 0(No drift) 6a. Left Leg: Motor (5-second hold - always test supine) - 1(Drift) 6b. Right Leg: Motor (5-second hold - always test supine) - 0(No drift) 7. Limb Ataxia (finger/nose \T\ heel/suazo - test with eyes open) - 1(Present in one limb) 8. Sensory Loss (pinprick arms/legs/face) - 0(Normal) 9. Best Language: Aphasia (description/naming/reading) - 0(No aphasia) 10. Dysarthria (speech clarity - read or repeat words) - 0(Normal) 11. Extinction and Inattention (visual/tactile/auditory/spatial/personal) - 0(No abnormality) Initials: jd3 NIH Stroke Scale - NIH Stroke Score Date: 09/24/2019 Time: 02:55 Total Score = 1 1a. Level of Consciousness (LOC) - 0(Alert) 1b. Level of Consciousness (LOC) (Year \T\ Age) - 0(Both) 1c. LOC Commands (Open \T\ Closes Eyes/Lime Plant Operator) - 0(Both) 2. Best Gaze (Lateral Gaze Paresis) - 0(Normal) 3. Visual Field Loss - 0(No visual loss) 4. Facial Palsy - 0(Normal) 5a. Left Arm: Motor (10-second hold) - 0(No drift) 5b. Right Arm: Motor (10-second hold) - 0(No drift) 6a. Left Leg: Motor (5-second hold - always test supine) - 1(Drift) 6b. Right Leg: Motor (5-second hold - always test supine) - 0(No drift) 7. Limb Ataxia (finger/nose \T\ heel/suazo - test with eyes open) - 0(Absent) 8. Sensory Loss (pinprick arms/legs/face) - 0(Normal) 9. Best Language: Aphasia (description/naming/reading) - 0(No aphasia) 10. Dysarthria (speech clarity - read or repeat words) - 0(Normal) 11. Extinction and Inattention (visual/tactile/auditory/spatial/personal) - 0(No abnormality) Initials: jd3 NIH Stroke Scale - NIH Stroke Score Date: 09/24/2019 Time: 03:46 Total Score = 4 1a. Level of Consciousness (LOC) - 0(Alert) 1b. Level of Consciousness (LOC) (Year \T\ Age) - 0(Both) 1c. LOC Commands (Open \T\ Closes Eyes/Lime Plant Operator) - 0(Both) 2. Best Gaze (Lateral Gaze Paresis) - 0(Normal) 3. Visual Field Loss - 0(No visual loss) 4. Facial Palsy - 0(Normal) 5a. Left Arm: Motor (10-second hold) - 1(Drift) 5b. Right Arm: Motor (10-second hold) - 0(No drift) 6a. Left Leg: Motor (5-second hold - always test supine) - 3(No effort against gravity) 6b. Right Leg: Motor (5-second hold - always test supine) - 0(No drift) 7. Limb Ataxia (finger/nose \T\ heel/suazo - test with eyes open) - 0(Absent) 8. Sensory Loss (pinprick arms/legs/face) - 0(Normal) 9. Best Language: Aphasia (description/naming/reading) - 0(No aphasia) 10. Dysarthria (speech clarity - read or repeat words) - 0(Normal) 11. Extinction and Inattention (visual/tactile/auditory/spatial/personal) - 0(No abnormality) Initials: tw4 Signatures: Dispatcher [employer] EDRI Savita Padilla, REPRODUCTION PRODUCTION MANAGER-C REPRODUCTION PRODUCTION MANAGER-Csnw Kimi Rae, RN RN tl1 Giuseppe Hackett RN RN jd3 Raúl Mckeon MD MD tw4 Francsico Beckett, RN RN rv Giuseppe Hackett RN jd3 Corrections: (The following items were deleted from the chart) 03:41 03:33 Chest Pa And Lat (2 Views) ordered. [facility] EDRI 03:54 02:55 Hospitalization Ordered by Miguel Becerra MD for Inpatient Admission. tl1 Preliminary diagnosis is Hyperglycemia, unspecified; Transient ischemic attack. Bed requested for Telemetry/MedSurg (Inpatient). Status is Inpatient Admission. Condition is Stable. Problem is new. Symptoms have improved. tw4 04:17 03:54 09/24/2019 02:55 Hospitalization Ordered by Miguel Becerra MD for rv Inpatient Admission. Preliminary diagnosis is Hyperglycemia, unspecified; Transient ischemic attack. Bed requested for Telemetry/MedSurg (Inpatient). Status is Inpatient Admission. Condition is Stable. Problem is new. Symptoms have improved. tl1
[2019-09-24] MEDS ORDERED: NA CHLORIDE 0.9% 100 ML IV ONE (03:19)
[2019-09-24] MEDS ORDERED: INSULIN -REGULAR HUMAN 50 UNIT/0.5 ML ML ONE (03:19)
[2019-09-24] MEDS ORDERED: ONDANSETRON 4 MG/2 ML VIAL IV PRN (03:26)
[2019-09-24] MEDS ORDERED: ACETAMINOPHEN 500 MG TAB PO PRN (03:26)
[2019-09-24] MEDS ORDERED: D50W 25 GM/50 ML SYRINGE/VIAL IV PRN ×2 (03:33→11:14)
[2019-09-24] MEDS ORDERED: GLUCAGON 1 MG/VIAL IM PRN ×2 (03:33→11:14)
[2019-09-24] MEDS ORDERED: INSULIN GLARGINE 100 UNITS/ML SQ ONE (04:30)
[2019-09-24 04:32] VITALS: O2SAT 98
[2019-09-24 04:35] VITALS: BMI 35.7
[2019-09-24] MEDS: NA CHLORIDE 0.9% 1,000 ML IV SCH ×2 (05:00→17:02)
[2019-09-24] MEDS ORDERED: cloNIDine HCL 0.1 MG TAB PO PRN (08:18)
[2019-09-24] MEDS ORDERED: HOME MED 1 EA UNK (Dulaglutide [Trulicity] 1.5 MG) SQ SCH (08:30)
[2019-09-24] MEDS ORDERED: ENOXAPARIN 40 MG/0.4 ML SQ SCH (09:00)
[2019-09-24] MEDS ORDERED: HOME MED 1 EA UNK (Insulin Detemir [Levemir Flextouch] 40 UNITS) SQ SCH (09:00)
[2019-09-24] MEDS ORDERED: ASPIRIN EC 81 MG TAB PO SCH (09:00)
[2019-09-24] MEDS ORDERED: CLOPIDOGREL 75 MG TABLET PO SCH (09:00)
--- NOTE | 2019-09-24 10:00 | P.HP ---
Certification for Inpatient Patient admitted to: Observation With expected LOS: <2 Midnights Patient will require the following post-hospital care: None Practitioner: I am a practitioner with admitting privileges, knowledge of patient current condition, hospital course, and medical plan of care. Services: Services provided to patient in accordance with Admission requirements found in Title 42 Section 412.3 of the Code of Federal Regulations Patient History Date of Service: 09/24/19 Reason for admission: TIA History of Present Illness: Patient is a 64-year-old female came to the hospital with right-sided weakness. Patient presented to the emergency room and patient had a CT scan which revealed no abnormalities. Patient weaknesses started improving. Patient will be admitted to the hospital for further evaluation. Allergies cephalexin monohydrate [From [employer]] Allergy (Verified 09/24/19 04:34) Rash Home Medications: Amlodipine Besylate 1 tab PO DAILY 09/24/19 Aspirin 1 tab PO DAILY 09/24/19 Atorvastatin Calcium [Lipitor] 1 tab PO BEDTIME 09/24/19 Clonidine HCl [Catapres*] 1 tab PO Q4H PRN 09/24/19 Clopidogrel Bisulfate [Plavix*] 1 tab PO DAILY 09/24/19 Dulaglutide [Trulicity] 1.5 mg SQ SEECOM 09/24/19 Empagliflozin [Jardiance] 1 tab PO DAILY 09/24/19 Furosemide [Lasix] 1 tab PO DAILY 09/24/19 Hydralazine HCl [Apresoline] 1 tab PO TID 09/24/19 Insulin Detemir [Levemir Flextouch] 40 units SQ BID 09/24/19 Isosorbide Mononitrate [Isosorbide Mononitrate ER] 1 tab PO DAILY 09/24/19 Lisinopril [Zestril] 1 tab PO DAILY 09/24/19 Lisinopril/Hydrochlorothiazide [Lisinopril-Hctz 20-12.5 mg Tab] 1 tab PO BID 09/24/19 Metformin HCl [Metformin HCl ER] 1 tab PO BID 09/24/19 Metoprolol Tartrate 1 tab PO BID 09/24/19 Spironolactone 1 tab PO DAILY 09/24/19 - Past Medical/Surgical History Has patient received pneumonia vaccine in the past: Yes Diabetic: Yes -: Diabetis IDDM -: HTN -: High Cholesterol -: Multiple sclerosis -: Sleep apnea -: TIA x2 (2016, 2018) -: Irritable Bowel Syndrome -: Foot Surgery -: Hysterectomy -: Cataract Sx - Family History Mother Medical History: Hypertension, Diabetes - Social History Smoking Status: Never smoker Alcohol use: Yes CD- Drugs: No Caffeine use: Yes Place of Residence: Home Review of Systems 10-point ROS is otherwise unremarkable Physical Examination - Vital Signs Temperature: 97.2 F Blood Pressure: 142/63 Pulse: 67 Respirations: 16 Pulse Ox (%): 97 - Physical Exam General: Alert, In no apparent distress, Oriented x3 HEENT: Atraumatic, PERRLA, Mucous membr. moist/pink, EOMI, Sclerae nonicteric Neck: Supple, 2+ carotid pulse no bruit, No LAD, Without JVD or thyroid abnormality Respiratory: Clear to auscultation bilaterally, Normal air movement Cardiovascular: Regular rate/rhythm, Normal S1 S2 Gastrointestinal: Normal bowel sounds, No tenderness Musculoskeletal: No tenderness Integumentary: No rashes Neurological: Normal gait, Normal speech, Normal strength at 5/5 x4 extr, Normal tone, Normal affect Lymphatics: No axilla or inguinal lymphadenopathy - Studies Laboratory Data (last 24 hrs) 09/24/19 03:00: Triglycerides 303 H, Cholesterol 162, HDL Cholesterol 64 H, Cholesterol/HDL Ratio 2.53 09/24/19 01:10: PT 9.3 L, INR 0.78, APTT 22.2 L 09/24/19 01:10: WBC 10.5, Hgb 14.1, Hct 41.6, Plt Count 380 09/24/19 01:10: Sodium 133 L, Potassium 4.9, BUN 56 H, Creatinine 2.01 H, Glucose 672 H* Assessment & Plan - Problems (Diagnosis) (1) TIA (transient ischemic attack) Current Visit: Yes Status: Acute - Advance Directives Does patient have a Living Will: No Does patient have a Durable POA for Healthcare: No
[2019-09-24] MEDS: ISOSORBIDE MONO SR 60 MG TAB PO SCH (10:10)
[2019-09-24] MEDS: HYDRALAZINE HCL 25 MG TABLET PO SCH ×3 (10:10→20:34)
[2019-09-24] MEDS: CLOPIDOGREL 75 MG TABLET PO SCH ×2 (10:10→10:11)
[2019-09-24] MEDS: AMLODIPINE 10 MG TAB PO SCH (10:11)
[2019-09-24] MEDS: METOPROLOL TAR 50 MG TAB PO SCH ×2 (10:11→20:34)
--- NOTE | 2019-09-24 10:22 | P.HP ---
Certification for Inpatient Patient admitted to: Inpatient With expected LOS: >2 Midnights Practitioner: I am a practitioner with admitting privileges, knowledge of patient current condition, hospital course, and medical plan of care. Services: Services provided to patient in accordance with Admission requirements found in Title 42 Section 412.3 of the Code of Federal Regulations Patient History Date of Service: 09/24/19 Reason for admission: LEG AND ARM L SIDE WEAK AND TINGLY. History of Present Illness: LUNA IS A NON COMPLIANT DIABETIC WHO DOES NOT FOLLOW A DIABETIC DIET COMES WITH L SIDE BODY WEAKNESS AND TINGLING. SHE SAYS SHE COULD NOT WALK AND DAUGHTER HELPED HER TO GET INTO THE CAR. SHE SAYS SHE HAS BEEN EATING WRONG FOODS FOR LONG TIME. SHE UNDERSTANDS THAT DIABETES WILL BE CONTROLLED ONLY WITH BETTER DIET IN ADDITION TO MEDICATIONS. HER LAB IN JULY HAD NORMAL BUN AND CREATININE. SINCE THEN SHE HAS BEEN ON TRULIICYT FROM ENDOCRINE DOCTOR, HIGHER DOSE OF LISINOPRIL, LASIX AND SPIRONOLACTONE FROM DR TORO ETC. SHE IS NOW BACK TO HER BASLINE THIS AM. IN HER LABWORK GLUCOSE IS UPTO 698 AND CREATININE IS HIGH UPTO 2.0. THESE ARE NEW FINDINGS. HE A1C WENT UP TO 10 FROM 9. Allergies cephalexin monohydrate [From [employer]] Allergy (Verified 09/24/19 04:34) Rash Home Medications: Amlodipine Besylate 1 tab PO DAILY 09/24/19 Aspirin 1 tab PO DAILY 09/24/19 Atorvastatin Calcium [Lipitor] 1 tab PO BEDTIME 09/24/19 Clonidine HCl [Catapres*] 1 tab PO Q4H PRN 09/24/19 Clopidogrel Bisulfate [Plavix*] 1 tab PO DAILY 09/24/19 Dulaglutide [Trulicity] 1.5 mg SQ SEECOM 09/24/19 Empagliflozin [Jardiance] 1 tab PO DAILY 09/24/19 Furosemide [Lasix] 1 tab PO DAILY 09/24/19 Hydralazine HCl [Apresoline] 1 tab PO TID 09/24/19 Insulin Detemir [Levemir Flextouch] 40 units SQ BID 09/24/19 Isosorbide Mononitrate [Isosorbide Mononitrate ER] 1 tab PO DAILY 09/24/19 Lisinopril [Zestril] 1 tab PO DAILY 09/24/19 Metformin HCl [Metformin HCl ER] 1 tab PO BID 09/24/19 Metoprolol Tartrate 1 tab PO BID 09/24/19 Spironolactone 1 tab PO DAILY 09/24/19 - Past Medical/Surgical History Has patient received pneumonia vaccine in the past: Yes Diabetic: Yes -: Diabetis IDDM -: HTN -: High Cholesterol -: Multiple sclerosis -: Sleep apnea -: TIA x2 (2015, 2017) -: Irritable Bowel Syndrome -: Foot Surgery -: Hysterectomy -: Cataract Sx - Family History Mother -: Hypertension, Diabetes - Social History Smoking Status: Never smoker Alcohol use: Yes CD- Drugs: No Caffeine use: Yes Place of Residence: Home Review of Systems 10-point ROS is otherwise unremarkable General: Weakness Physical Examination - Vital Signs Temperature: 97.2 F Blood Pressure: 162/63 Pulse: 67 Respirations: 16 Pulse Ox (%): 97 - Physical Exam General: Mild distress, Obese HEENT: Atraumatic, PERRLA, Mucous membr. moist/pink, EOMI, Sclerae nonicteric Neck: Supple, 2+ carotid pulse no bruit, No LAD, Without JVD or thyroid abnormality Respiratory: Clear to auscultation bilaterally, Normal air movement Cardiovascular: Regular rate/rhythm, Normal S1 S2 Gastrointestinal: Normal bowel sounds, No tenderness Musculoskeletal: No tenderness Integumentary: No rashes Neurological: Normal gait, Normal speech, Normal strength at 5/5 x4 extr, Normal tone, Normal affect Lymphatics: No axilla or inguinal lymphadenopathy - Studies Laboratory Data (last 24 hrs) 09/24/19 03:00: Triglycerides 303 H, Cholesterol 162, HDL Cholesterol 64 H, Cholesterol/HDL Ratio 2.53 09/24/19 01:10: PT 9.3 L, INR 0.78, APTT 22.2 L 09/24/19 01:10: WBC 10.5, Hgb 14.1, Hct 41.6, Plt Count 380 09/24/19 01:10: Sodium 133 L, Potassium 4.9, BUN 56 H, Creatinine 2.01 H, Glucose 672 H* Assessment and Plan - Problems (Diagnosis) (1) Uncontrolled diabetes mellitus Current Visit: Yes Status: Chronic Plan: SHE WILL CONTINUE LEVEMIR, TRULICITY. I WILL STOP METFORMIN CREAT IS HIGH. I WILL STOP JARDIANCE FOR NOW IT IS NOT WORKING. SHE KNOWS I WILL RAISE INSULIN AND WITHOUT DIET CONTROL SHE MAY GET OBESE. Qualifiers: Diabetes mellitus type: type 2 (2) Dehydration Current Visit: Yes Status: Acute Plan: IV FLUIDS HOLD LASIX. HOLD LISINOPRIL WATCH BP DAILY. HOLD SPIRONOLACTONE. (3) HTN (hypertension) Current Visit: Yes Status: Chronic Plan: ABOVE. (4) TIA (transient ischemic attack) Current Visit: Yes Status: Acute Plan: MRI STROKE PROTOCOL IS DONE. REPORT IS PENDING. - Advance Directives Does patient have a Living Will: No Does patient have a Durable POA for Healthcare: No
--- NOTE | 2019-09-24 10:41 | RAD REPORT ---
EXAM DESCRIPTION: RAD - Chest Single View - 09/24/2019 1:31 am CLINICAL HISTORY: stroke Chest pain. COMPARISON: Chest Single View dated 04/27/2017; Chest Single View dated 11/23/2016 FINDINGS: Portable technique limits examination quality. The lungs are grossly clear. The heart is normal in size. No displaced fractures. IMPRESSION: No acute intrathoracic process suspected.
--- NOTE | 2019-09-24 10:51 | RAD REPORT ---
EXAM DESCRIPTION: MRI - Brain Wo Cont - 09/24/2019 9:13 am CLINICAL HISTORY: Right-sided weakness Headache, CVA COMPARISON: Ct Stroke Brain Wo Cont dated 09/24/2019 TECHNIQUE: Multi-sequence, multiplanar MR imaging of the brain was performed without contrast. FINDINGS: No intracranial hemorrhage, hydrocephalus or extra-axial fluid collections.Mild T2 and FLA IR hyperintensity is seen in the periventricular and deep white matter compatible with chronic microv ascular ischemia. No edema or shift of midline structures. No findings to suspect brain mass. DWI is negative for acute CVA. Midline structures are normally formed. Mastoid air cells and paranasal sinuses are clear. IMPRESSION: Negative for acute CVA or other acute intracranial abnormality.
--- NOTE | 2019-09-24 10:57 | RAD REPORT ---
EXAM DESCRIPTION: US - CP - 09/24/2019 9:28 am CLINICAL HISTORY: Right-sided weakness Headache, drowsiness, CVA COMPARISON: No comparisons TECHNIQUE: Real-time sonographic evaluation of both carotid systems was performed. Doppler interroga tion was performed with waveform tracing bilaterally. FINDINGS: Normal high resistance waveforms are noted in both external carotid arteries. The common c arotid arteries and internal carotid arteries show normal low resistance waveforms. Focal hard plaque is seen right carotid bulb. Peak systolic and end diastolic velocity values and the ICA/CCA ratios are in the non-hemodynamically significant range. Antegrade flow seen in both vertebral arteries. IMPRESSION: Focal hard plaque is seen right carotid bulb. No evidence of a hemodynamically significant stenosis.
[2019-09-24] MEDS: INSULIN -REGULAR HUMAN 50 UNIT/0.5 ML ML SQ SCH ×3 (12:02→20:33)
[2019-09-24] MEDS ORDERED: SIMETHICONE 80 MG TAB PO PRN (19:55)
--- NOTE | 2019-09-24 20:18 | RAD REPORT ---
EXAM DESCRIPTION: CT HEAD WITHOUT IV CONTRAST CLINICAL HISTORY: WEAKNESS TECHNIQUE: Contiguous axial CT images obtained through the brain without IV contrast. Coronal and sa gittal reformatted images were provided. This exam was performed according to our departmental dose-optimization program, which includes autom ated exposure control, adjustment of the mA and/or kV according to patient size and/or use of iterati ve reconstruction technique. COMPARISON: None available for comparison FINDINGS: Brain: There is mild cerebral atrophy. Mild bilateral periventricular and subcortical whit e matter hypodensity which is nonspecific and can be seen in the clinical setting of chronic microvas cular angiopathy. No focal mass effect. Lozoya-white matter differentiation is within normal limits. No hemorrhage. Ventricles: No ventriculomegaly or midline shift. Extra-axial spaces: No extra-axial collection or hemorrhage. Paranasal sinuses and mastoid air cells: Well-aerated Vessels: There is atherosclerotic disease of the internal carotid arteries bilaterally. Bones: Unremarkable Soft tissues: Unremarkable IMPRESSION: 1. No acute hemorrhage, focal mass or large territory infarction. 2. Other findings as above. CODE STROKE PROTOCOL CONFERENCE CALL: The findings were verbally discussed via telephone conference with Dr. Raúl Mckeon on 09/24/2019 1:23 AM CDT. The results were acknowledged and understood. Electronically signed by: Leo Knox MD 09/24/2019 1:24 AM CDT Due to temporary technical issues with the PACS/Fluency reporting system, reports are being signed by the in house radiologist without review as a courtesy to ensure prompt reporting. The interpreting r adiologist is fully responsible for the content of the report.
[2019-09-24] MEDS: METFORMIN ER 500 MG TAB PO SCH (20:34)
[2019-09-24] MEDS: INSULIN DETEMIR SQ SCH (20:34)
[2019-09-24] MEDS ORDERED: INSULIN DETEMIR SQ SCH (21:00)
[2019-09-24] MEDS ORDERED: ATORVASTATIN 80 MG TAB PO SCH (21:00)
[2019-09-24] MEDS ORDERED: INSULIN GLARGINE 100 UNITS/ML SQ SCH ×2 (21:00)
[2019-09-25] MEDS: NA CHLORIDE 0.9% 1,000 ML IV SCH (05:13)
[2019-09-25 06:08] LABS: Basophils % 0.9 % (0-1.3); Hematocrit 35.6 % (36.0-45.0); Lymphocytes % 30.7 % (15.3-44.8); MPV 9.1 fL (7.6-11.3); RBC Red Blood Cell Count 4.13 M/uL (3.86-4.86)
[2019-09-25 06:28] LABS: Magnesium 2.5 mg/dL (1.8-2.4); Phosphorus 3.1 mg/dL (2.5-4.9)
[2019-09-25 06:35] LABS: Albumin 2.7 g/dL (3.4-5.0); Bilirubin Total 0.7 mg/dL (0.2-1.0); Potassium 4.8 mmol/L (3.5-5.1); Protein, Total 5.7 g/dL (6.4-8.2)
[2019-09-25] MEDS: INSULIN -REGULAR HUMAN 50 UNIT/0.5 ML ML SQ SCH (07:30)
[2019-09-25] MEDS: INSULIN DETEMIR SQ SCH (08:24)
[2019-09-25] MEDS: METFORMIN ER 500 MG TAB PO SCH (08:26)
[2019-09-25] MEDS: ISOSORBIDE MONO SR 60 MG TAB PO SCH (08:26)
[2019-09-25] MEDS: AMLODIPINE 10 MG TAB PO SCH (08:26)
[2019-09-25] MEDS: METOPROLOL TAR 50 MG TAB PO SCH (08:27)
[2019-09-25] MEDS: CLOPIDOGREL 75 MG TABLET PO SCH (08:28)
[2019-09-25] MEDS: HYDRALAZINE HCL 25 MG TABLET PO SCH (08:28)
[2019-09-25 08:30] VITALS: TEMP 96.9
--- NOTE | 2019-09-25 08:58 | EKG ---
Test Date: 2019-09-24 Test Time: 01:29:51 Wafer Line Worker: CAROLINE MEASUREMENT RESULTS: Intervals: Rate: 71 ME: 160 QRSD: 76 QT: 402 QTc: 436 [place]: P: 52 ME: 160 QRS: 20 T: 115 INTERPRETIVE STATEMENTS: Normal sinus rhythm Left ventricular hypertrophy with repolarization abnormality Abnormal ECG Compared to ECG 04/27/2017 17:34:48 Left ventricular hypertrophy now present Early repolarization now present T-wave abnormality no longer present Electronically Signed On 09-25-19 08:55:35 CDT by Mario Yang
[2019-09-25] MEDS ORDERED: ENOXAPARIN 30 MG/0.3 ML SQ SCH (09:00)
[2019-09-25] MEDS ORDERED: HOME MED 1 EA UNK (Empagliflozin [Jardiance] 1 TAB) PO SCH (09:00)
[2019-09-25] MEDS ORDERED: FUROSEMIDE 20 MG TABLET PO SCH (09:00)
[2019-09-25] MEDS ORDERED: lisinopriL 20 MG TAB PO SCH (09:00)
[2019-09-25] MEDS ORDERED: SPIRONOLACTONE 25 MG TABLET PO SCH (09:00)
[2019-09-25] MEDS ORDERED: ASPIRIN 81 MG CHEWABLE TABLET PO SCH (09:00)
[2019-09-25 10:21] VITALS: BP 123/60
--- NOTE | 2019-09-25 15:58 | P.DS ---
Admission Date: 09/24/19 Discharge Date: 09/25/19 Disposition: ROUTINE DISCHARGE Discharge Condition: GOOD Reason for Admission: LEG AND ARM L SIDE WEAK AND TINGLY. - Problems (1) Uncontrolled diabetes mellitus Status: Chronic Qualifiers: Diabetes mellitus type: type 2 (2) Dehydration Status: Acute (3) HTN (hypertension) Status: Chronic (4) TIA (transient ischemic attack) Status: Acute Brief History of Present Illness: LUNA IS A NON COMPLIANT DIABETIC WHO DOES NOT FOLLOW A DIABETIC DIET COMES WITH L SIDE BODY WEAKNESS AND TINGLING. SHE SAYS SHE COULD NOT WALK AND DAUGHTER HELPED HER TO GET INTO THE CAR. SHE SAYS SHE HAS BEEN EATING WRONG FOODS FOR LONG TIME. SHE UNDERSTANDS THAT DIABETES WILL BE CONTROLLED ONLY WITH BETTER DIET IN ADDITION TO MEDICATIONS. HER LAB IN [place]UL[place] HAD NORMAL BUN AND CREATININE. SINCE THEN SHE HAS BEEN ON TRULIICYT FROM ENDOCRINE DOCTOR, HIGHER DOSE OF LISINOPRIL, LASIX AND SPIRONOLACTONE FROM DR TORO ETC. SHE IS NOW BACK TO HER BASLINE THIS AM. IN HER LABWORK GLUCOSE IS UPTO 698 AND CREATININE IS HIGH UPTO 2.0. THESE ARE NEW FINDINGS. HE A1C WENT UP TO 10 FROM 9. Hospital Course: [place]. [place] CAME WITH L SIDE LEG AND ARM WEAKNESS BUT THEN IS ALL BETTER WITHIN AN HOUR. SHE HAS HAD FEW STROKES IN PAST BUT NO RESIDUAL. HER MRI DOES NOT SHOW STROKES. I AM NOT SURE IF THIS REALLY A TIA. SHE IS A DIABETIC AND HAS HTN. SHE IS NOT COMPLIANT WITH DIET. SHE KNOWS SHE HAS TO IMPROVE OTHERWISESHE WILL CONTINUE TO HAVE COMPLICATIONS. HER DEHYDRATION IMPROVED WITH IV FLUIDS BACK TO NORMAL. SHE WILL STOOP LASIX AND SPIRONOLACTONE BY RECRUITER. SHE KNOWS NORVASC CASUES EDEMA BUT BP IS HIGH ENOUGH THAT I WILL NEED TO CONTINUEFOR NOW. I WILL SEE HER IN OFFICE AND CHANGE FROM LISINOPRIL TO EDARBI AND SEE IF BP CAN COME DOWN ENOUGHT TO STOP NORVASC. SHE IS ALREADY ON CLONIDINE ALSO. Vital Signs/Physical Exam: Temp Pulse Resp BP Pulse Ox 96.9 F 63 17 123/60 98 09/25/19 08:00 09/25/19 09:45 09/25/19 08:00 09/25/19 09:45 09/25/19 08:00 Laboratory Data at Discharge: WBC 9.8 K/uL (4.3-10.9) 09/25/19 05:05 Hgb 12.5 g/dL (12.0-15.0) 09/25/19 05:05 Hct 35.6 % (36.0-45.0) L 09/25/19 05:05 Plt Count 305 K/uL (152-406) 09/25/19 05:05 PT 9.3 SECONDS (9.5-12.5) L 09/24/19 01:10 INR 0.78 09/24/19 01:10 APTT 22.2 SECONDS (24.3-36.9) L 09/24/19 01:10 Sodium 142 mmol/L (136-145) 09/25/19 05:05 Potassium 4.8 mmol/L (3.5-5.1) 09/25/19 05:05 BUN 34 mg/dL (7-18) H D 09/25/19 05:05 Creatinine 1.09 mg/dL (0.55-1.3) 09/25/19 05:05 Glucose 118 mg/dL (74-106) H 09/25/19 05:05 Phosphorus 3.1 mg/dL (2.5-4.9) 09/25/19 05:05 Magnesium 2.5 mg/dL (1.8-2.4) H 09/25/19 05:05 Total Bilirubin 0.7 mg/dL (0.2-1.0) 09/25/19 05:05 AST 12 U/L (15-37) L 09/25/19 05:05 ALT 16 U/L (12-78) 09/25/19 05:05 Alkaline Phosphatase 64 U/L (45-117) 09/25/19 05:05 Triglycerides 303 mg/dL (<150) H 09/24/19 03:00 Cholesterol 162 mg/dL (<200) 09/24/19 03:00 HDL Cholesterol 64 mg/dL (40-60) H 09/24/19 03:00 Cholesterol/HDL Ratio 2.53 09/24/19 03:00 Home Medications: Amlodipine Besylate 1 tab PO DAILY 09/24/19 Aspirin 1 tab PO DAILY 09/24/19 Atorvastatin Calcium [Lipitor] 1 tab PO BEDTIME 09/24/19 Clopidogrel Bisulfate [Plavix*] 1 tab PO DAILY 09/24/19 Dulaglutide [Trulicity] 1.5 mg SQ SEECOM 09/24/19 Furosemide [Lasix] 1 tab PO DAILY 09/24/19 Hydralazine HCl [Apresoline] 1 tab PO TID 09/24/19 Insulin Detemir [Levemir Flextouch] 40 units SQ BID 09/24/19 Isosorbide Mononitrate [Isosorbide Mononitrate ER] 1 tab PO DAILY 09/24/19 Lisinopril [Zestril] 1 tab PO DAILY 09/24/19 Metformin HCl [Metformin HCl ER] 1 tab PO BID 09/24/19 Metoprolol Tartrate 1 tab PO BID 09/24/19 Clonidine HCl [Catapres*] 0.2 mg PO Q8H 30 Days #90 tablet 09/25/19 New Medications: Clonidine HCl [Catapres*] 0.2 mg PO Q8H 30 Days #90 tablet Patient Discharge Instructions: OK TO DC IV AND DC HOME. FOLLOW-UP WITH PRIMARY CARE PROVIDER IN 1-2 WEEKS. FOLLOW-UP WITH NEUROLOGY IN 1-2 WEEKS. RETURN TO THE ER IF symptoms worsen. CALL or TEXT DR. WILKES AT [phone] IF ANY QUESTIONS REGARDING HOSPITAL STAY. PLEASE CALL THE FLOOR AT [phone] IF ANY MEDICATION OR NURSING QUESTIONS. Diet: AHA Activity: Fall precautions Followup: Tin Hart MD [Primary Care Provider] -
--- NOTE | 2019-09-27 07:57 | ECHO ---
HEIGHT: 5 ft 3 in WEIGHT: 201 lb 11.2 oz DATE OF STUDY: 09/24/[address]: Miguel Becerra MD 2-DIMENSIONAL: YES M.MODE: YES DOPPLER: YES COLOR FLOW: YES TDS: NO PORTABLE: NO DEFINITY: NO BUBBLE STUDY: NO DIAGNOSIS: STROKE CARDIAC HISTORY: CATHERIZATION: NO SURGERY: NO PROSTHETIC VALVE: NO PACEMAKER: NO MEASUREMENTS (cm) DIASTOLIC (NORMALS) SYSTOLIC (NORMALS) IVSd 1.3 (0.6-1.2) LA Diam 3.1 (1.9-4.0) LVEF 66% LVIDd 3.9 (3.5-5.7) LVIDs 2.5 (2.0-3.5) %FS 36% LVPWd 1.3 (0.6-1.2) Ao Diam 2.4 (2.0-3.7) 2 DIMENSIONAL ASSESSMENT: RIGHT ATRIUM: NORMAL LEFT ATRIUM: NORMAL RIGHT VENTRICLE: NORMAL LEFT VENTRICLE: LEFT VENTRICULAR HYPERTROPHY TRICUSPID VALVE: NORMAL MITRAL VALVE: NORMAL PULMONIC VALVE: NORMAL AORTIC VALVE: NORMAL PERICARDIAL EFFUSION: NONE AORTIC ROOT: NORMAL LEFT VENTRICULAR WALL MOTION: NORMAL DOPPLER/COLOR FLOW: NORMAL COMMENTS: CONCENTRIC LEFT VENTRICULAR HYPERTROPHY. NORMAL LEFT EJECTION FRACTION. NO THROMBUS. NO VEGETATION. NO WALL MOTION ABNORMALITY. TECHNOLOGIST: Jan HARRELL
== END 2019-09-25 09:50 | disposition home or self-care (01) ==
LOC: ER 00:46 → 2ND 04:13
PROVIDERS: ADMIT Internal Medicine; ATTEND Internal Medicine
DX: G45.9 Transient cerebral ischemic attack, unspecified (principal); R29.706 NIHSS score 6; E11.65 Type 2 diabetes mellitus with hyperglycemia; E86.0 Dehydration; I11.9 Hypertensive heart disease without heart failure; Z91.11 Patient's noncompliance with dietary regimen; Z11.59 Encounter for screening for other viral diseases; R94.31 Abnormal electrocardiogram [ECG] [EKG]; G35 Multiple sclerosis; E78.5 Hyperlipidemia, unspecified; G47.30 Sleep apnea, unspecified; Z79.4 Long term (current) use of insulin; Z79.899 Other long term (current) drug therapy; Z86.73 Personal history of transient ischemic attack (TIA), and cerebral infarction without residual deficits
CPT/HCPCS: 96365; 93005; 93306; 85025 ×2; 80048; 36415 ×2; 83735; 84100; 85610; 80061; 82947 ×8; 83605; 85730; 84443; 83036; 84484; 80053; 83930; 70450; 71045; 93880; 70551; 97116; 97161; 99285; U0002; J1650 ×2; J7030 ×5; G0378 ×3; J1815; J2997

== ENCOUNTER 2020-02-15 07:39 | Day surgery (SDC) | payer BC ==
[2020-02-14 11:45] LABS: Absolute Lymphocytes (CBC) 2.2 K/uL (0.7-4.9); Basophils % 1.1 % (0-1.3); Lymphocytes % 22.3 % (15.3-44.8); MPV 8.3 fL (7.6-11.3); RBC Red Blood Cell Count 4.75 M/uL (3.86-4.86)
[2020-02-14 11:55] LABS: Protime INR 0.83
[2020-02-14 12:06] LABS: Potassium 4.5 mmol/L (3.5-5.1)
[2020-02-15] MEDS ORDERED: NA CHLORIDE 0.9% 500 ML ONE (08:03)
--- OUTSIDE RECORDS SUMMARY | 2020-02-15 08:17 | XMS REPORT | Summary of Care ---
:1955 Author Organization [facility] Address [address] [place] [address]- phone Encounter HQ Encntr_alias(FIN) [id number] Date(s): 01/07/20 - 01/07/20 [facility] [address] [place] [address]- [phone] Discharge Disposition: Home or Self Care Attending Physician: Dyllan Ragland MD Referring Physician: Jacob Mensah MD Vital Signs No data available for this section Problem List Condition Effective Dates Status Health Status Informant Diabetes Mellitus(Confirmed) Resolved HTN(Confirmed) Resolved Hysterectomy(Confirmed) Resolved Paresthesia(Confirmed) Active TIA(Confirmed) Resolved Allergies, Adverse Reactions, Alerts Substance Reaction Severity Status Keflex Active Medications No data available for this section Results No data available for this section Immunizations No data available for this section Procedures Procedure Date Related Diagnosis Body Site Status Hysterectomy Completed Social History No data available for this section Assessment and Plan No data available for this section
--- OUTSIDE RECORDS SUMMARY | 2020-02-15 08:17 | XMS REPORT | Clinical Summary ---
:1955 Author Organization [facility] Address [address] [place] [address] Care Team Providers Name Role Phone Unavailable [...] 100 MG 2 (two) times daily. tabletIndications: hypertension amLODIPine Take 10 mg by mouth 0 [...] oz/Week Comments Yes 1 Glasses of wine 1.0 Sex Assigned at Date Recorded Not on file Last Filed Vital Signs Not on file Plan of Treatment Not on file Results Not on fileafter 02/14/2019 Insurance Payer Benefit Plan / Subscriber ID Effective Dates Phone Addre ss Type Group BLUE BCBS PPO POS [id number] 2016-Nigel [phone] [id number] PPO CROSS/BLUE EPO CHOICE t 2 [facility] [id number] Advance Directives For more information, please contact: [phone] Code Status Date Activated Date Inactivated Comments Full Code 11/23/2016 11:43 AM 11/27/2016 9:42 PM This code status was determined by: Patient
--- OUTSIDE RECORDS SUMMARY | 2020-02-15 08:17 | XMS REPORT | Continuity of Care Document ---
:1955 Author Organization [employer] [facility] Care Team Providers Name Role Phone [employer] Unavailable Un available Problems Problem Status Onset Classification Date Comments Sourc e Date Reported Encounter for 11/17/19 06/01/2018 [facility] screening 18 Women's mammogram for malignant neoplasm of breast Z12.31 - ENCNTR Active 08/13/19 Alfred rial SCREEN MAMMOGRAM 18 Her snider FOR MA 436 - CVA Active 10/10/19 [facility] 13 [place] Diabetes Mellitus Resolved Problem 10/18/2012 M H OPID [place] HTN Resolved Problem 10/18/2012 MH OPID [place] Hysterectomy Resolved Problem 10/18/2012 OPI D [place] TIA Resolved Problem 10/18/2012 [facility] [place] Diabetes Resolved Problem 01/10/2020 [facility] Mellitus(Confirme Ne uro,[facility] d) [facility] Essential Resolved Problem 01/10/2020 [facility] hypertension Neuro,[facility] (disorder) [facility] Hysterectomy Resolved Problem 01/10/2020 Mische r (procedure) Neuro,[facility] Women's Paresthesia Active Problem 01/10/2020 [facility] (finding) Neuro Transient Resolved Problem 01/10/2020 [facility] ischemic attack Neur o,[facility] (disorder) [facility] Palpitations Active 10/22/2012 [facility] Stroke Syndrome Active 10/22/2012 [facility] Type 2 Diabetes Active 10/22/2012 [facility] Complications - Uncontrolled Hyperlipidemia Active 10/22/2012 [facility] Hypertension Active 10/22/2012 [facility] Medications Medication Details Route Status Patient Ordering [...] Date Comments S ource type Reported Keflex Assertion Drug Active Mische r allergy Neuro Keflex TABS drug drug Active [facility] allergy allergy Physicia ns Immunizations No Data Provided for This Section Results No Data Provided for This Section Pathology Reports No Data Provided for This Section Diagnostic Reports Report Value Date Source Breast Mammo Scrn [place] 11/12/2017 [facility] incl CAD MA BILATERAL DIGITAL SCREENING MAMMOGRAM WITH CAD: 11/12/2017 CLINICAL: /Screening. Current study was evaluated with a Pesticide Use Medical Coordinator d Detection (CAD) system. COMPARISON:No prior exams were available for [facility]. TECHNIQUE: Mammographic view s were obtained [...] is recommended. This exam was interpreted at [id number] [facility]. Rhiannon Barnes M.D. dh/:11/14/2017 10:48:44 Vaccine Specialist(s): Brayan Alvarez [facility] Women's Imaging letter sent: BI-RADS 1/2 Dense Mammogram BI-RADS: 2 Benign Brain w/wo contrast 10/16/2012 [facility] [place] MRI REASON FOR EXAM: 436 Stroke syndrome. [...] Location Location Encounter Encounter Reason Attending ADM [place] Stat Source Details Type Number For Provider Date Date Visit AUDIT [id number] 10/01 /2012 Carolyn nieves OD [id number] Aubrey DAVIS 10/16 Active [facility] PID CVA [place] AUDIT [id number] 10/22 /2012 Carolyn nieves [place], [id number] 11/25 10/22 [place] Provider: /2012 [facility] Lawson N, Status: [place], Time: 3:30 PM [facility] Outpt Diag [id number] Trudy 11/12 11/13 [facility] Outpatient Services [place] /2017 [facility] - Women[facility] Women's Outpatient [id number] Dyllan 01/06 Active [facility] Out[facility] [id number] Jacob 01/06 01/07 [facility] Neurology [place] /2019 Neur o [place] Procedures Procedure Code Date Perfomer Comments Source Hysterectomy [id number] [facility] Neuro,[facility] Women's Assessment and Plan No Data Provided for This Section Plan of Care Plan of Care Date Source MRI Brain w/wo contrast [id number] 10/22/2012 [facility] 12/11/2012 Routine[N] 30 Day Event Monitor Recording 09/30/2012 Routine MRI Brain w/wo contrast 10/01/2012 [facility] 12/11/2012 Routine[N] 30 Day Event Monitor Recording 09/30/2012 Routine Social History Social History Date Source No data available for this 01/08/2020 [facility] Neuro section No data available for this 11/13/2017 [facility] Women's section Marital History - Single 10/22/2012 [facility] (Active) Occupation: (Active) Never A Smoker (Active) Family History Value Date Source Paternal history of 10/22/2012 [facility] Howard-Rajinder Syndrome (Active) Paternal history of 10/01/2012 [facility] Howard-Rajinder Syndrome (Active) Advance Directives Order Name Results Value Date Source Advance Directives Advance Directives No Advance 10/22/2012 [facility] Directives available. Advance Directives Advance Directives No Advance 10/01/2012 [facility] Directives available. Functional Status No Data Provided for This Section
--- OUTSIDE RECORDS SUMMARY | 2020-02-15 08:18 | XMS REPORT | Continuity of Care Document ---
:1955 Author Organization [facility] t Address [address] [place] [address] Care Team Providers Name Role Phone Jerica Bauer MD Attending Clinician Darin Ragland Attending Clinician Krista Caraballo Attending Clinician DENYS GENTILE Attending Clinician Unavail able DENYS GENTILE Admitting Clinician Unavail able Problems Condition Condition Condition Status Onset Resolution Last Treating Co mments Source Name Details Category Date Date Treatment Clinician Date Z03.23 - Diagnosis [facility] 11:27:00 l SCREEN Z12. - 00:01: Feliciano montgomery MAMMOGRAM ENCNTR 00 FOR MA SCREEN MAMMOGRAM FOR MA Active 08/12/2017 [facility]ceived Received Disease [facility]24 [facility] plasminoge plasminoge 00:00: Vt dical n n 00 Center activator activator (t-PA) (t-PA) less than less than 24 hours 24 hours prior to prior to arrival arrival Mixed Mixed Disease Active [facility] hyperlipid hyperlipid 11-24 [facility] - emia emia 00:00: [facility] Acute Acute Disease Active [facility] ischemic ischemic 11-23 [facility] - stroke stroke 00:00: Medical 00 Leigh 436 - CVA Diagnosis Active 2012-10-16 Memoria 7-19 10:59:00 l 436 - 00:01: [place] CVA 00 Active 10/09/2012 [facility] Diabetes Problem Resolve 2012-10-18 Vt moria Mellitus d 21:11:31 l Diabetes Feliciano n Mellitus Resolved Problem 10/18/2012 [facility] HTN Problem Resolve 2012-10-18 Alfred carmella d 21:11:31 l HTN Timothy Resolved Problem 10/18/2012 [facility] Hysterecto Problem Resolve 2012-10-18 Memoria my d 21:11:31 l Timothy Hysterecto my Resolved Problem 10/18/2012 [facility] TIA Problem Resolve 2012-10-18 Alfred carmella d 21:11:31 l TIA Timothy Resolved Problem 10/18/2012 HERIBERTOD Lobo Diabetes Problem Resolve 2020-01-10 Vt moria Mellitus(C d 00:18:11 l onfirmed) Diabetes Her snider Mellitus(C onfirmed) Resolved Problem 01/10/2020 [facility]'s Essential Problem Resolve 2020-01-10 M emoria hypertensi d 00:18:11 l on Timothy (disorder) Essential hypertensi on (disorder) Resolved Problem 01/10/2020 [facility]'s Hysterecto Problem Resolve 2020-01-10 Memoria my d 00:18:11 l (procedure Feliciano n ) Hysterecto my (procedure ) Resolved Problem 01/10/2020 [facility] Women's Transient Problem Resolve 2020-01-10 M emoria ischemic d 00:18:11 l attack [place] (disorder) Transient ischemic attack (disorder) Resolved Problem 01/10/2020 [facility]'s Paresthesi Problem Active 2020-01-10 M emoria a 00:18:11 l (finding) Timothy Paresthesi a (finding) Active Problem 01/10/2020 [facility] Neuro Palpitatio Problem Active 2012-10-22 M emoria ns 09:59:17 l Timothy Palpitatio ns Active 10/22/2012 [facility] Stroke Problem Active 2012-10-22 Memor ia Syndrome 09:59:17 l Stroke [place] Syndrome Active 3 [facility] Type 2 Problem Active 2012-10-22 Memor ia Diabetes 09:59:17 l With Type 2 Timothy Neurologic Diabetes al With Complicati Neurologic ons - al Uncontroll Complicati ed ons - Uncontroll ed Active 10/22/2012 [facility] Hyperlipid Problem Active 2012-10-22 M emoria emia 09:59:17 l [place] Hyperlipid emia Active 3 [facility] Hypertensi Problem Active 2012-10-22 M emoria on 09:59:17 l Timothy Hypertensi on Active 10/22/2012 [facility] Encounter Problem 2018-06-01 2018-06-01 Memoria for 11-16 11:11:51 11:11:51 l screening 03:08: Timothy mammogram Encounter 40 for for malignant screening neoplasm mammogram of breast for malignant neoplasm of breast 11/16/2017 06/01/2018 [facility] Sanna Women's Allergies, Adverse Reactions, Alerts Allergy Allergy Status Severity Reaction(s) Onset Inactive Treating Comm ents Source Name Type Date Date Clinician Cephalex Propensi Active rash [facility] in ty to 11-23 [facility] - adverse 00:00: Medical reaction 00 Center s Keflex Keflex Active Memoria l Timothy Keflex Keflex Active Memoria TABS TABS l Timothy Family History Family Member Diagnosis Comments Start Date Stop Date Source Unknown Family Family History 2012-10-01 2012-10-01 Memori al [place] Member 14:02:26 14:02:26 Social History Social Habit Start Date Stop Date Quantity Comments Source Sex Assigned At [facility] Tobacco use and 2016-11-23 2016-11-23 Never used [facility] - exposure 00:00:00 00:00:00 Medical Center Alcohol intake 2016-11-23 2016-11-23 Current drinker [facility] Melissa Gorman - 00:00:00 00:00:00 of alcohol [facility] (finding) Social History 2012-10-22 2012-10-22 [facility] yolette 09:59:17 09:59:17 Smoking Status Start Date Stop Date Source Never smoker [facility] Medications Ordered Filled Start Stop Current Ordering Indication Dosage Frequency Signature Comments Components Source Medication Medication Date Date Medication? Clinician (SIG) Name Name isosorbide 2017 Yes 60mg Q.5D Take [address] mononitrate 9-06 by mouth 2 Vita [facility] - (IMDUR) 60 19:42: (two) Medica l MG 24 hr 42 times Center tablet daily. metoprolol Yes hypertensio 100mg Q.5D Take [address] (LOPRESSOR) 9-06 n mg by [facility] - 100 MG 19:42: mouth 2 Medical tablet 42 (two) Center times daily. amLODIPine 2017 Yes 10mg QD Take [address] (NORVASC) 9-06 by mouth [facility] - 10 MG 19:42: daily. Medical tablet 42 Center lisinopril- Yes 2{tbl} QD Take [address] hydroCHLORO 9- tablets by Vita k[facility] - thiazide 19:42: mouth Medical (PRINZIDE,Z 42 daily. Center ESTORETIC) 20-12.5 mg per tablet glimepiride Yes 4mg Take [address] (AMARYL) 4 06 by mouth [facility] - MG tablet 19:42: every Medical 42 morning Center before breakfast. famotidine Yes 20mg Q.5D Take 1 [facility] (PEPCID) 20 - tablet (20 [facility]ita [facility] - MG tablet 00:00: mg total) Med ical 00 by mouth 2 Center (two) times daily. insulin Yes 15U QD Inject [facility] detemir 06 0.15 mLs [facility] - (LEVEMIR 00:00: (15 Units Medi ambreen FLEXPEN) 00 total) Center 100 unit/mL subcutaneo (3 mL) InPn usly every injection morning. Aspirin 81 Yes (Active) Me moria MG Oral 8-01 l Tablet 09:59: Timothy 17 Isosorbide Yes (Active) Me moria Mononitrate 8-01 l ER 30 MG 09:59: Timothy Oral Tablet 17 Extended Release 24 Hour Lisinopril Yes (Active) Me moria 20 MG Oral 8-01 l Tablet 09:59: Timothy 17 MetFORMIN Yes (Active) Mem oria HCl 500 MG 8-01 l Oral Tablet 09:59: Feliciano montgomery 17 Estradiol 2 Yes (Active) M emoria MG Oral 8-01 l Tablet 09:59: [place] 17 Lantus 100 Yes (Active) Me moria UNIT/ML 8-01 l Subcutaneou 09:59: Feliciano n s Solution 17 Norvasc 10 Yes (Active) Me moria MG Oral 8-01 l Tablet 09:59: [place] 17 HydrALAZINE Yes (Active) M emoria HCl TABS 8-01 l 09:59: Timothy 17 Metoprolol Yes (Active) Me moria Tartrate 8-01 l 100 MG Oral 09:59: Feliciano n Tablet 17 Simvastatin Yes (Active) M emoria 40 MG Oral 8-01 l Tablet 09:59: [place] 17 HumaLOG 100 Yes (Active) M emoria UNIT/ML 8-01 l Subcutaneou 09:59: Feliciano n s Solution 17 Procedures Procedure Date / Time Performed Performing Clinician Sourc e Hysterectomy Lyla Timothy Plan of Care Planned Activity Planned Date Details Comments Source Future Scheduled Test 2012-10-22 09:59:17 [facility] [code [facility] = 75203-5] Future Scheduled Test 2012-10-01 14:02:26 Plan of Care [code [facility] = 68243-5] Encounters Start End Encounter Admission Attending Care Care Encounter Source Date/Time Date/Time Type Type Clinicians Facility Department ID 2020-02-11 2020-02-11 [facility] [place] [id number] 13:06:46 13:36:46 ne Visit Victorina Rodriguez [id number] [place] [id number] [facility] [id number] [address] 2020-01-07 2020-01-07 Outpatient Ellyn MISCHER MISCHER [id number] 08:15:00 23:59:59 Dyllan 00 Darin 2019-12-15 2019-12-[id number] 08:11:04 23:59:00 Encounter Victorina Rodriguez [id number] [place] [id number] [place] [id number] 2019-12-10 2019-12-10 Telephone Adum, [facility] [id number] 00:00:00 00:00:00 Victorina Rodriguez [id number] [id number] Professio [id number] [address] 2019-12-07 2019-12-07 Telephone Adum, [facility] [id number] 00:00:00 00:00:00 Victorina Rodriguez [id number] [id number] Professio [id number] [address] 2019-12-07 2019-12-07 Telephone Adum, [facility] [id number] 00:00:00 00:00:00 Victorina Rodriguez [id number] [id number] Professio [id number] [address] 2019-12-03 2019-12-03 Office Adum, [facility] [id number] 09:19:27 10:40:16 Visit Victorina Rodriguez [id number] [id number] Professio [id number] [address] 2017-11-12 2017-11-12 Outpatient Ilya [id number] 11:19:00 23:59:00 Trudy Velasco [id number] 2012-10-22 2012-10-22 [id number] 04:59:18 04:59:17 2012-10-01 2012-10-01 [facility] [id number] 09:02:50 09:02:26 Results Test Description Test Time Test Comments Results Result Comments Source POCT-GLUCOSE METER 2016-11-27 17:03:00 Test Item Value Reference Range Interpretation Comme nts POC-GLUCOSE METER (BEWIL) (test 239 mg/dL 70-110 H TESTED AT [facility] [address] [facility] code = 1538) [facility] 7703 0 POCT-GLUCOSE [id number] 12:13:00 Test Item Value Reference Range Interpretation Comments POC-GLUCOSE METER 287 mg/dL 70-110 H TESTED AT [place] [address] ([facility]) (test code = [place] 1538) [id number] POCT-GLUCOSE [id number] 07:44:00 Test Item Value Reference Range Interpretation Comments POC-GLUCOSE METER 245 mg/dL 70-110 H TESTED AT [place] [address] ([facility]) (test code = [address] [address] [place] 1538) [id number] POCT-GLUCOSE [id number] 21:19:00 Test Item Value Reference Range Interpretation Comments POC-GLUCOSE METER 344 mg/dL 70-110 H TESTED AT [place] [address] ([facility]) (test code = [address] [address] [place] 1538) [id number] POCT-GLUCOSE [id number] 17:59:00 Test Item Value Reference Range Interpretation Comments POC-GLUCOSE METER 215 mg/dL 70-110 H TESTED AT [place] [address] ([facility]) (test code = [address] [address] [place] 1538) [id number] POCT-GLUCOSE [id number] 12:57:00 Test Item Value Reference Range Interpretation Comments POC-GLUCOSE METER 251 mg/dL 70-110 H TESTED AT [place] [address] ([facility]) (test code = [address] [address] [place] 1538) [id number] POCT-GLUCOSE [id number] 08:01:00 Test Item Value Reference Range Interpretation Comments POC-GLUCOSE METER 192 mg/dL 70-110 H TESTED AT [place] [address] ([facility]) (test code = [address] [address] [place] 1538) [address] POCT-GLUCOSE [id number] 02:32:00 Test Item Value Reference Range Interpretation Comments POC-GLUCOSE METER 125 mg/dL 70-110 H TESTED AT [place] [address] ([facility]) (test code = [address] [address] [place] 1538) [address] POCT-GLUCOSE [id number] 20:52:00 Test Item Value Reference Range Interpretation Comments POC-GLUCOSE METER 136 mg/dL 70-110 H TESTED AT [place] [address] ([facility]) (test code = [address] [address] [place] 1538) [address] POCT-GLUCOSE [id number] 16:19:00 Test Item Value Reference Range Interpretation Comments POC-GLUCOSE METER 243 mg/dL 70-110 H TESTED AT [place] [address] ([facility]) (test code = [place] Diaz [facility] 1538) [address] POCT-GLUCOSE [id number] 12:27:00 Test Item Value Reference Range Interpretation Comments POC-GLUCOSE METER 351 mg/dL 70-110 H Notified Joe Montgomery MD/TESTED ([facility]) (test code = AT [place] 700968) [facility] 7703 0 POCT-GLUCOSE [id number] 07:46:00 Test Item Value Reference Range Interpretation Comments POC-GLUCOSE METER 194 mg/dL 70-110 H TESTED AT [place] [address] ([facility]) (test code = [place] [facility] 1538) [id number] POCT-GLUCOSE [id number] 22:30:00 Test Item Value Reference Range Interpretation Comments POC-GLUCOSE METER 323 mg/dL 70-110 H Notified Joe Montgomery MD/TESTED ([facility]) (test code = AT [place] 700968) [facility] 7703 0 POCT-GLUCOSE [id number] 17:13:00 Test Item Value Reference Range Interpretation Comments POC-GLUCOSE METER 255 mg/dL 70-110 H TESTED AT [place] [address] ([facility]) (test code = [place] Diaz [facility] 1538) [address] POCT-GLUCOSE [id number] 11:26:00 Test Item Value Reference Range Interpretation Comments POC-GLUCOSE METER 295 mg/dL 70-110 H TESTED AT [place] [address] ([facility]) (test code = [place] [facility] 1538) [address] [id number] 06:49:00 Test Item Value Reference Range Interpretation Comments RPR SCREEN ([facility]) (test code = Nonreactive Nonreactive 420) POCT-GLUCOSE [id number] 06:35:00 Test Item Value Reference Range Interpretation Comments POC-GLUCOSE METER 227 mg/dL 70-110 H TESTED AT [place] [address] ([facility]) (test code = KATHRINEONEIL Diaz [facility] 1538) [address] TROPONIN [id number] 01:14:00 Test Item Value Reference Range Interpretation Comments TROPONIN I ([facility]) (test code = 0.02 ng/mL 0.00-0.03 397) [...] NOT APPLICABLE FOR DIALYSIS PATIEN TS. FastingLIPID [id number] 01:08:00 Test Item Value Reference Range Interpretation [...] High >=190 FastingCBC W/PLT COUNT & AUTO [id number] 00:49:00 Test Item Value Reference Range Interpretation [...] (BEAKER) (test code = Normal 762) POCT-GLUCOSE [id number] 22:35:00 Test Item Value Reference Range Interpretation Comments POC-GLUCOSE METER 274 mg/dL 70-110 H TESTED AT [facility] 6720 (BEAKER) (test code = [place] 1538) [address] POCT-GLUCOSE [id number] 17:32:00 Test Item Value Reference Range Interpretation Comments POC-GLUCOSE METER 367 mg/dL 70-110 H Notified R Valentina FRAGA/TESTED (BEAKER) (test code = AT [facility] [address] [place] 1538) [facility] 7703 0 HEMOGLOBIN [id number] 16:47:00 Test Item Value Reference Range Interpretation Comments HEMOGLOBIN A1C 9.5 % 4.3-6.1 H POSSIBLE HEMO GLOBIN C (BEAKER) (test code = VARIAN T NOTED IN 368) HEMOGLOBIN A1C CHROMATOGRAPH. SUGGEST HEMOGLOBIN ELEC TROPHORESIS IF CLINICALLY I NDICATED. VITAMIN [id number] 13:17:00 Test Item Value Reference Range Interpretation Comments VITAMIN B12 (BEAKER) (test code = 633 pg/mL 213-816 774) TSH/FREE T4 IF [id number] 13:17:00 Test Item Value Reference Range Interpretation Comments THYROID STIMULATING HORMONE 0.78 uIU/mL 0.35-4.94 (BEAKER) (test code = 772) TROPONIN [id number] 12:56:00 Test Item Value Reference Range Interpretation [...] acute neurological disease, and persistent tachyarrhythmia.BASIC METABOLIC [id number] 12:48:00 Test Item Value Reference Range Interpretation [...] NOT APPLICABLE FOR DIALYSIS PATIEN TS. POCT-GLUCOSE [id number] 12:44:00 Test Item Value Reference Range Interpretation Comments POC-GLUCOSE METER 322 mg/dL 70-110 H Notified R N MD/TESTED (BEAKER) (test code = AT [facility] [address] [facility] 4448) [place] 7703 0 CBC W/PLT COUNT & AUTO [id number] 12:32:00 Test Item Value Reference Range Interpretation [...] % 0-1 PERCENT (BEAKER) (test code = 2805)
--- OUTSIDE RECORDS SUMMARY | 2020-02-15 08:18 | XMS REPORT | Summary of Care ---
:1955 Author Organization [facility] - Health Address [address] [place] [address] Care Team Providers Name Role Phone Trudy Caraballo Primary Care Provider Encounter Details Date Type Department Care Team Description 12/03/2019 Orders Only [facility] Doctor Unassigned, No [address] [facility] [place] [address] [address] [place] [address] Allergies Active Allergy Reactions Severity Noted Date Comments Cephalexin Unknown - See comments 01/17/2016 documented as of this encounter (statuses as of 12/03/2019) Medications Medication Sig Dispensed Refills Start Date End Date Status aspirin 81 mg chewable Take 81 mg by 0 Active tablet mouth daily. isosorbide mononitrate Take 60 mg by 0 Active (IMDUR) 60 mg 24 hr mouth 2 (two) tablet times daily. metoprolol succinate XL Take 100 mg by 0 Active (TOPROL XL) 100 mg 24 mouth 2 (two) hr tablet times daily. amLODIPine (NORVASC) 10 Take 10 mg by 0 Active mg tablet mouth daily. estradiol (ESTRACE) 1 Take 2 mg by 0 Active mg tablet mouth daily. DULAGLUTIDE (TRULICITY inject under the 0 Active SC) skin weekly. insulin detemir inject 40 Units 0 Active (LEVEMIR FLEXTOUCH under the skin 2 U-100 INSULN SC) (two) times daily. atorvastatin 80 mg Take 80 mg by 0 Active tablet mouth at bedtime. clopidogrel (PLAVIX) 75 Take 75 mg by 0 Active mg tablet mouth daily. insulin lispro (HUMALOG inject 5 Units 0 Active U-100 INSULIN SC) under the skin before meals. metFORMIN 500 mg tablet Take 500 mg by 0 Active mouth 2 (two) times daily with meals. documented as of this encounter (statuses as of 12/03/2019) Active Problems Problem Noted Date Hypertensive urgency 10/28/2018 Hypertensive emergency 10/28/2018 Acute on chronic diastolic congestive heart failure IDDM (insulin dependent diabetes mellitus) 10/28/2018 Obesity (BMI 30-39.9) 02/01/2016 documented as of this encounter (statuses as of 12/03/2019) Social History Tobacco Use Types Packs/Day Years Used Date Never Smoker Smokeless Tobacco: Never Used Alcohol Use Drinks/Week oz/Week Comments No 0 Standard drinks or equivalent 0.0 Sex Assigned at Date Recorded Not on file COVID-19 Exposure Response Date Recorded In the last month, have you been in contact with No / Unsure 12/03/2019 9:16 AM CDT someone who was confirmed or suspected to have Coronavirus / COVID-19? documented as of this encounter Last Filed Vital Signs Not on filedocumented in this encounter Plan of Treatment Date Type Specialty Care Team Description 12/03/2019 Office Visit Obstetrics & Gynecology Adcy, Chary Pizano MD [address] [place] [address] Dr. Pacheco [place] [phone] [phone] Health Maintenance Due Date Last Done Comments HEPATITIS C (HCV) SCREEN 1955 PNEUMOCOCCAL 0-64 YEARS COMBINED 1963 SERIES (1 of 1 - PPSV23) EYE EXAM 1967 LDL-C 1967 URINE MICROALBUMIN 1967 Depression Screening 1969 FOOT EXAM 1975 DTaP,Tdap,and Td Vaccines (1 - Tdap) 01/06/1976 PAP SMEAR 1978 COLON CANCER SCREENING ANNUAL 2007 FIT/FOBT COLON CANCER SCREENING FIT DNA EVERY 2007 3 YEARS COLON CANCER SCREENING SIGMOIDOSCOPY 2007 EVERY 5 YEARS COLONOSCOPY 2007 Colorectal Cancer Screening 2007 Zoster Recombinant Vaccine (SHINGRIX) 2007 (1 of 2) Breast Cancer Screening (MAMMOGRAM) 10/12/2015 10/11/2014 HgA1C 04/29/2019 10/27/2018 CREATININE (SERUM) 10/29/2019 10/28/2018, 10/27/2018, 01/11/2016 INFLUENZA VACCINE (#1) 2019 documented as of this encounter Implants Implanted Type Area Public Health Physician Device Shelf Model / Serial Identifier Expiration / Lot Date Lens LENS Left: Eye John 08/21/2020 [id number] / Implanted: Qty: 1 on 01/18/2016 by Jordan Acuña MD at [facility] 4 [id number] / [id number] Sn60wf 21.0d LENS Right: John 10/21/2020 [id number] 21.0D / Implanted: Qty: 1 on 02/01/2016 by Jordan Acuña MD at [facility] Eye 2 [id number] / [id number] documented as of this encounter Procedures Procedure Name Priority Date/Time Associated Diagnosis Comme nts ASSIGNMENT OF BENEFITS Routine 12/03/2019 9:18 AM CDT documented in this encounter Results Not on filedocumented in this encounter Insurance Payer Benefit Plan Subscriber ID Effective Dates Phone Address Type / Group [facility] [id number] 2016-Nigel [phone] [address] PPO/POS [place] [id number] [place] [address] documented as of this encounter
--- OUTSIDE RECORDS SUMMARY | 2020-02-15 08:19 | XMS REPORT | Summary of Care ---
:1955 Author Organization [facility] - [facility] Address [address] [place] [id number] Care Team Providers Name Role Phone Trudy Caraballo Primary Care Provider Reason for Visit Reason Comments Notification Encounter Details Date Type Department Care Team Description 12/07/2019 Telephone [facility] Women's AdVictorina ebnoit MD Notification Healthcare- [address] [facility], [place] [address] [address] [place] [id number] [place] [phone] Allergies Active Allergy Reactions Severity Noted Date Comments Cephalexin Unknown - See comments 01/17/2016 documented as of this encounter (statuses as of 12/07/2019) Medications Medication Sig Dispensed Refills Start Date End Date Status aspirin 81 mg Take 81 mg by mouth 0 Active chewable tablet daily. isosorbide Take 60 mg by mouth 0 Active mononitrate (IMDUR) 2 (two) times daily. 60 mg 24 hr tablet metoprolol succinate Take 100 mg by mouth 0 Active XL (TOPROL XL) 100 2 (two) times daily. mg 24 hr tablet amLODIPine (NORVASC) Take 10 mg by mouth 0 Active 10 mg tablet daily. estradiol (ESTRACE) Take 2 mg by mouth 0 Active 1 mg tablet daily. DULAGLUTIDE inject under the 0 Active (TRULICITY SC) skin weekly. insulin detemir inject 40 Units 0 Active (LEVEMIR FLEXTOUCH under the skin 2 U-100 INSULN SC) (two) times daily. atorvastatin 80 mg Take 80 mg by mouth 0 Active tablet at bedtime. clopidogrel (PLAVIX) Take 75 mg by mouth 0 Active 75 mg tablet daily. insulin lispro inject 5 Units under 0 Active (HUMALOG U-100 the skin before INSULIN SC) meals. metFORMIN 500 mg Take 500 mg by mouth 0 Active tablet 2 (two) times daily with meals. cloNIDine 0.2 mg clonidine HCl 0.2 mg 0 Active tablet tablet hydrALAZINE 100 mg hydralazine 100 mg tablet 0 Active tablet Take 1 tablet 3 times a day by oral route. CYANOCOBALAMIN, Take by mouth. 0 Active VITAMIN B-12, ORAL mv-min/iron/folic/ca Take by mouth. 0 Active lcium/vitK (WOMEN'S MULTIVITAMIN ORAL) spironolactone 25 mg spironolactone 25 mg tablet 0 Active tablet Take 1 tablet twice a day by oral route. PARoxetine Take 1 capsule by 30 capsule 5 12/03/2019 Active mesylate,menop.sym, mouth daily. (BRISDELLE) 7.5 mg capsuleIndications: Vasomotor symptoms due to menopause azilsartan 80 mg Tab Take 1 tablet by 0 Active mouth daily. documented as of this encounter (statuses as of 12/07/2019) Active Problems Problem Noted Date Hypertensive urgency 10/28/2018 Hypertensive emergency 10/28/2018 Acute on chronic diastolic congestive heart failure IDDM (insulin dependent diabetes mellitus) 10/28/2018 Obesity (BMI 30-39.9) 02/01/2016 documented as of this encounter (statuses as of 12/07/2019) Social History Tobacco Use Types Packs/Day Years Used Date Never Smoker Smokeless Tobacco: Never Used Alcohol Use Drinks/Week oz/Week Comments Yes 0 Standard drinks or equivalent ocassionally Sex Assigned at Date Recorded Not on file COVID-19 Exposure Response Date Recorded In the last month, have you been in contact with No / Unsure 12/03/2019 9:16 AM CDT someone who was confirmed or suspected to have Coronavirus / COVID-19? documented as of this encounter Last Filed Vital Signs Not on filedocumented in this encounter Miscellaneous Notes Telephone Encounter - Chula Steel RN - 12/07/2019 4:39 PM CDTPatient chart updated. Chula Steel RN 12/07/2019 4:40 PM Telephone Encounter - JinamichaelSari - 12/07/2019 11:01 AM CDTPt is wanting to notify DR TACO to just add to her profile that she is also taking Edarbi 80 once a day. documented in this encounter Plan of Treatment Date Type Specialty Care Team Description 12/15/2019 Appointment Radiology Victorina Bauer MD [address] [place] [address] Dr. [address] [place], [place] [phone] 01/28/2020 Office Visit Obstetrics & Gynecology Chary Bauer MD [address] [place] [address] Dr. Sal[address] [place] [phone] 12/05/2020 Office Visit Obstetrics & Gynecology Chary Bauer MD [address] [place] [address] Dr. Sal[address] [place] [phone] Health Maintenance Due Date Last Done [...] of this encounter Implants Implanted Type Area Relay Tester Device Shelf Model / Serial Identifier Expiration / Lot Date Lens LENS Left: Eye John 08/21/2020 [id number] / Implanted: Qty: 1 on 01/18/2016 by Jordan Acuña MD at [facility] 8 [id number] / [id number] 21.0d LENS Right: John 10/21/2020 [id number] 21.0D / Implanted: Qty: 1 on 02/01/2016 by Jordan Acuña MD at [facility] Eye 7 [id number] / [id number] documented as of this encounter Results Not on filedocumented in this encounter Insurance Payer Benefit Plan Subscriber ID Effective Dates Phone Address Type / Group BCBS OF [facility] [id number] 2016-Nigel [phone] [place] [address] [place] t [id number] [place] [address] documented as of this encounter
--- OUTSIDE RECORDS SUMMARY | 2020-02-15 08:19 | XMS REPORT | Summary of Care ---
:1955 Author Organization [facility] Address [address] [place] [address] Care Team Providers Name Role Phone Carlos A Caraballoothy Krista Primary Care Provider Reason for Referral Radiology Services (Routine) Status Reason Specialty Diagnoses / Referred By Referred To Procedures Contact Contact New Request Diagnostic Diagnoses Encounter for screening mammogram for malignant neoplasm of breast Vitcorina Bauer, Radiology Procedures BI SCREENING MAMMOGRAM BILATERAL [address] [place] [address] DrKev Josue [address] [place] [address] Reason for Visit Reason Comments Well Woman Exam Encounter Details Date Type Department Care Team Description 12/03/2019 Office Visit [facility] Women's Victorina Bauer MD Well woman exam with routine gynecologic al exam (Primary Dx); [facility]- [address] Encounter for screening mamm ogram for malignant neoplasm of breast; [address] [place] [address] Encounter for screening for malignant ne oplasm of colon; [address], [address] Vasomotor [place] [phone] Allergies Active Allergy Reactions Severity Noted Date Comments Cephalexin Unknown - See comments 01/17/2016 documented as of this encounter (statuses as of 12/06/2019) Medications Medication Sig Dispensed Refills Start Date [...] mg capsuleIndications: Vasomotor symptoms due to menopause documented as of this encounter (statuses as of 12/06/2019) Active Problems Problem Noted Date Hypertensive urgency 10/28/2018 Hypertensive emergency 10/28/2018 Acute on chronic diastolic congestive heart failure IDDM (insulin dependent diabetes mellitus) 10/28/2018 Obesity (BMI 30-39.9) 02/01/2016 documented as of this encounter (statuses as of 12/06/2019) Social History Tobacco Use Types Packs/Day Years [...] of this encounter Last Filed Vital Signs Vital Sign Reading Time Taken Comments Blood Pressure 186/70 12/03/2019 9:55 AM 20 min. afte r bp meds CDT Pulse 69 12/03/2019 9:37 AM CDT Temperature 36.7 C (98 F) 12/03/2019 9:37 AM CDT Respiratory Rate 18 12/03/2019 9:37 AM CDT Oxygen Saturation - - Inhaled Oxygen - - Concentration Weight 92.1 kg (203 lb) 12/03/2019 9:37 AM CDT Height 160 cm (5' 3") 12/03/2019 9:37 AM CDT Body Mass Index 35.96 12/03/2019 9:37 AM CDT documented in this encounter Patient Instructions Patient InstructionsBeatrice Chou MA - 12/03/2019 9:30 AM CDT Patient Education Prevention Guidelines, Women Ages 50 to 64 Screening tests and vaccines are an important part of managing your health. A screening test is doneto find possible disorders or diseases in people who don't have any symptoms. The goal is to find a disease early so lifestyle changes can be made and you can be watched more closely to reduce the riskof disease, or to detect it early enough to treat it most effectively. Screening tests are not considered diagnostic, but are used to determine if more testing is needed.Health counseling is essential, too. Below are guidelines for these, for women ages 50 to 64. Talk with your healthcare provider to make sure youre up to date on what you need. Screening Who needs it How often Type 2 diabetes or prediabetes All women beginning at age 45 and women without symptoms at any age who are overweight or obese and have 1 or more additional risk factors for diabetes. At least every 3 years Type 2 diabetes or prediabetes All women diagnosed with gestational diabetes Lifelong testing every 3 years Type 2 diabetes All women with prediabetes Every year Alcohol misuse All women in this age group At routine exams Blood pressure All women in this age group Yearly checkup if your blood pressure is normal Normal blood pressure is less than 120/80 mm Hg If your blood pressure reading is higher than normal, follow the advice of your healthcare provider Breast cancer All women at average risk in this age group Yearly mammogram should be done until age 54. At age 55, you can switch to every other year or choose to continue yearly. All women should know the possible benefits and risks of breast cancer screening with mammograms. Cervical cancer All women in this age group, except women who have had a complete hysterectomy Pap test every 3 years or Pap test with human papillomavirus (HPV) test every 5 years Chlamydia Women at increased risk for infection At routine exams Colorectal cancer All women at average risk in this age group Multiple tests are available and are used at different times. Possible tests include: Flexible sigmoidoscopy every 5 years, or Colonoscopy every 10 years, [address] colonography (virtual colonoscopy) every 5 years, or Yearly fecal occult blood test, or Yearly fecal immunochemical test every year, or Stool DNA test, every 3 years If you choose a test other than a colonoscopy and have an abnormal test result, you will need to follow up with a colonoscopy. Screening advice varies among expert groups. Talk with your healthcare provider about which tests are best for you. Some people should be screened using a different schedule because of their personal or family healthhistory. Talk with your healthcare provider about your health history. Depression All women in this age group At routine exams Gonorrhea Sexually active women at increased risk for infection At routine exams Hepatitis C Anyone at increased risk; 1 time for those born between 1945 and 1964 At routine exams High cholesterol or triglycerides All women in this age group who are at risk for coronary artery disease At least every 5 years HIV All women At routine exams Lung cancer Adults age 55 to 80 who have smoked Yearly screening in smokers with 30 pack-year history of smoking or who quit within 15 years Obesity All women in this age group At routine exams Osteoporosis Women who are postmenopausal Ask your healthcare provider Syphilis Women at increased risk for infection talk with your healthcare provider At routine exams Tuberculosis Women at increased risk for infection talk with your healthcare provider Ask your healthcare provider Vision All women in this age group Ask your healthcare provider Vaccine Who needs it How often Chickenpox (varicella) All women in this age group who have no record of this infection or vaccine 2doses; the second dose should be given at least 4 weeks after the first dose Hepatitis A Women at increased risk for infection talk with your healthcare provider 2 doses given at least 6 months apart Hepatitis B Women at increased risk for infection talk with your healthcare provider 3 doses over 6 months; second dose should be given 1 month after the first dose; the third dose should be given at least 2 months after the second dose and at least 4 months after the first dose Haemophilus influenzae Type B (HIB) Women at increased risk for infection talk with your healthcare provider 1 to 3 doses Influenza (flu) All women in this age group Once a year Measles, mumps, rubella (MMR) Women in this age group through their late 50s who have no record of these infections or vaccines 1 dose Meningococcal Women at increased risk for infection talk with your healthcare provider 1 or moredoses Pneumococcal conjugate vaccine (PCV13) and pneumococcal polysaccharide vaccine (PPSV23) Women at increased risk for infection talk with your healthcare provider PCV13: 1 dose ages 19 to 65 (protects against 13 types of pneumococcal bacteria) PPSV23: 1 to 2 doses through age 64, or 1 dose at 65 or older (protects against 23 types of pneumococcal bacteria) Tetanus/diphtheria/pertussis (Td/Tdap) booster All women in this age group Td every 10 years, or a 1-time dose of Tdap instead of a Td booster after age 18, then Td every 10 years Zoster All women ages 60 and older 1 dose Counseling Who needs it How often BRCA gene mutation testing for breast and ovarian cancer susceptibility Women with increased risk for having gene mutation When your risk is known Breast cancer and chemoprevention Women at high risk for breast cancer When your risk is known Diet and exercise Women who are overweight or obese When diagnosed, and then at routine exams Sexually transmitted infection prevention Women at increased risk for infection talk with your healthcare provider At routine exams Use of daily aspirin Women ages 55 and up in this age group who are at risk for cardiovascular health problems such as stroke When your risk is known Use of tobacco and the health effects it can cause All women in this age group Every exam 1 [employer] last reviewed this educational content on 04/18/201519998281-6911 [employer]. [address] [place] [address], [place] [address]. All rights reserved. This information is not intended as a substitute for professional medical care. Always follow your healthcare professional's instructions. Patient Education Breast Health: Breast Self-Awareness What is breast self-awareness? Breast self-awareness is knowing how your breasts normally look and feel. Your breasts change as yougo through different stages of your life. So its important to learn what is normal for your breasts. Knowing about your breasts helps you spot any changes in them right away. Tell your healthcare provider about any changes. Why is breast self-awareness important? Many experts now say that women should focus on breast self-awareness instead of doing a breast self-examination (BSE). These experts include the [employer] and the [place]. Some experts even advise not teaching women to do a BSE. Thats because research hasnt shown a clear benefit to doing BSEs. Breast self-awareness is different than a BSE. It isnt about following a certain method and schedule. Its about knowing what's normal for your breasts. That way you can spot even small changes right away. If you see any changes, tell your healthcare provider. Changes to look for Call your healthcare provider if you find any changes in your breasts that worry you. These changes may be: A lump Nipple discharge other than breastmilk, especially if it's bloody Swelling A change in size or shape Skin changes, such as redness, thickening, or dimpling of the skin Swollen lymph nodes in the armpit Nipple problems, such as pain or redness If you find a lump Call your provider if you find lumpiness in one breast. Also call if you feel something different inthe tissue or feel a definite lump. Sometimes lumpiness may be due to menstrual changes. But there may be reason for concern. Your provider may want to see you right away if you have: Nipple discharge that is bloody Skin changes on your breast, such as dimpling or puckering Its okay to be upset if you find a lump. Be sure to call your provider right away. Remember that most breast lumps are benign. This means they are not cancer. [email or web address] last reviewed this educational content on 10/22/201619995102-2944 [employer]. [address] [place] [address], [place] [address]. All rights reserved. This information is not intended as a substitute for professional medical care. Always follow your healthcare professional's instructions. Patient Education Mammography Mammographyis an X-ray exam of your breast tissue. The image it makes is called a mammogram. A mammogram can help find problems with your breasts,such as cysts or cancer. Mammography is the best breast cancer screening tool available. Be proactive Have screening mammograms and professional breast exams as often as your healthcare provider advises. Also, be sure you know how your breasts normally look and feel. This makes it easier to notice any changes. Report changes to your healthcare provider as soon as possible. How do I get ready for a mammogram? Schedule the test for 1 week after your period.Your breasts are less sore and dense then. Make sure your clinic getsimages of your last mammogram if it was done somewhere else. This lets the provider compare the 2 sets of images for any changes. On the morning of your test,dont use deodorant,powder,or perfume. Wear a top that you can take off easily. What happens during a mammogram? You will need to undress from the waist up. The technologist will position your breast to get the best test results. Each of your breasts will be compressed one at a time. This helps get the most complete X-ray image. Your breasts will be repositioned to get at least 2 separate views of each breast. What happens after a mammogram? More X-rays or an ultrasound are sometimes needed. If not done at the time of your initial mammogram, youll be called to schedule them. You should get your test results in writing. Ask about this at your appointment. Have mammograms as often as your healthcare provider advises. What to tell your provider Tell your provider if: Youre or think you may be You have breast implants You have any scars or moles on or near your breasts Youve had a breast biopsy or surgery Youre [email or web address] last reviewed this educational content on 09/21/201819994782-3510 [employer]. [address] [place] [address], [place] [address]. All rights reserved. This information is not intended as a substitute for professional medical care. Always follow your healthcare professional's instructions. documented in this encounter Progress Notes Victorina Bauer MD - 12/03/2019 9:30 AM CDT Chief complaint: Chief Complaint Patient presents with Well Woman Exam 64 year-old postmenopausal presents for WWE. She hasn't had one in years and her PCP recommended oneand also to discuss refilling her estradiol tabs for vasomotor symptoms- he has declined refilling it. Patient had a hysterectomy for menorrhagia in 1986 and then had her ovaries removed in for benign ovarian cysts in 2010. She was started on estradiol tabs at the time for hot flshes/ night sweats whichshe reports are bothersome without the estrogen. She denies vaginal dryness or dyspareunia. She doesreport that 9 years ago when she was started on the estrogen she was not "plagued" with all of her current medical co- morbidities of HTN, CVA( most recent mini - stroke was last year), DM and hyperlipidemia. She is currently in a stable relationship, denies domestic/immediate partner abuse. Last mammogram was maybe in , denies hx of abnormal mammograms. Reports that last colonoscopy was in 2016- normal She denies family history of breast, ovarian, colon or endometrial cancer Histories OB History Para Term AB Living 3 2 2 1 2 SAB TAB Ectopic Multiple Live Births 1 2 # Outcome Date GA Lbr Mauricio/2nd Weight Sex Delivery Anes PTL Lv 3 Term 10/22/85 9 lb (4.082 kg) F NORMAL SPONT RAJAT 2 SAB 1984 Comments: D&C 1 Term 07/17/75 7 lb 5 oz (3.317 kg) M NORMAL SPONT RAJAT Past Medical History: Diagnosis Date Cataract CVA (cerebral vascular accident) DM (diabetes mellitus) Hyperlipemia Hypertension Family History Problem Relation Age of Onset Diabetes Mother Hypertension Mother Hypertension Father Cancer Maternal Grandmother Family Status Relation Name Status Mo Fa MGMo Past Surgical History: Procedure Laterality Date CYST EXCISION DILATION AND CURETTAGE (SHX) HYSTERECTOMY PHACOEMULSIFICATION OF CATARACT WITH INTRAOCULAR LENS IMPLANT Left 01/18/2016 Surgeon: Jordan Acuña MD; Location: [facility] PHACOEMULSIFICATION OF CATARACT WITH INTRAOCULAR LENS IMPLANT Right 02/01/2016 Surgeon: Jordan Acuña MD; Location: [facility] Social History Socioeconomic History Marital status: Spouse name: Not on file Number of children: Not on file Years of education: Not on file Highest education level: Not on file Occupational History Not on file Social Needs Financial resource strain: Not on file Food insecurity Worry: Not on file Inability: Not on file Transportation needs Medical: Not on file Non-medical: Not on file Tobacco Use Smoking status: Never Smoker Smokeless tobacco: Never Used Substance and Sexual Activity Alcohol use: Yes Comment: ocassionally Drug use: No Sexual activity: Yes Partners: Male control/protection: Surgical Lifestyle Physical activity Days per week: Not on file Minutes per session: Not on file Stress: Not on file Relationships Social connections Talks on phone: Not on file Gets together: Not on file Attends moravian service: Not on file Active member of club or organization: Not on file Attends meetings of clubs or organizations: Not on file Relationship status: Not on file Intimate partner violence Fear of current or ex partner: Not on file Emotionally abused: Not on file Physically abused: Not on file Forced sexual activity: Not on file Other Topics Concern Not on file Social History Narrative Denies physical and sexual abuse. Social History Substance and Sexual Activity Sexual Activity Yes Partners: Male control/protection: Surgical Labs No new labs Radiology No new radiology. Allergies Aziza is allergic to keflex [cephalexin]. Medications Aziza has a current medication list which includes the following prescription(s): clonidine, cyanocobalamin (vitamin b-12), hydralazine, mv- min/iron/folic/calcium/vitk, paroxetine mesylate(menop.sym), atorvastatin, clopidogrel, insulin detemir, metformin, amlodipine, aspirin, dulaglutide, isosorbidemononitrate, metoprolol succinate xl, spironolactone, insulin lispro, and estradiol. Review of Systems Constitutional: Negative. HENT: Negative. Eyes: Negative. Respiratory: Negative. Breasts: Negative. Cardiovascular: Negative. Gastrointestinal: Negative. Genitourinary: Negative. Musculoskeletal: Negative. Skin: Negative. Neurological: Negative. Psychiatric/Behavioral: Negative. Endocrine: Endocrine negative BP (!) 186/70 (BP Location: Right arm, Patient Position: Sitting, BP CUFF SIZE: Adult Large) | Pulse 69 | Temp 36.7 C (98 F) (Oral) | Resp 18 | Ht 5' 3" (1.6 m) | Wt 203 lb (92.1 kg) | BMI 35.96 kg/m Pregravid BMI: Could not be calculated Physical Exam Vitals reviewed. Constitutional: She is oriented to person, place, and time. She appears well- developed and well-groomed. Her body habitus is obese. Neck: No tenderness and no mass. No thyroid nodules palpated. No neck adenopathy. Cardiovascular: Regular rate and rhythm. No murmur auscultated. Pulmonary/Chest: Breath sounds clear to auscultation. Normal inspiratory effort. Abdominal: Abdomen is soft. No mass palpated. No tenderness present. There is no guarding. No herniapalpated or inspected. Neuro/Psychiatric: Inappropriate mood and affect. She is oriented to person, place, and time. Skin: Skin normal. Lymphadenopathy: No neck adenopathy present. No axillary adenopathy present. No inguinal adenopathy present. Breast: Right breast exhibits no mass, no nipple discharge and no tenderness. Left breast exhibits no mass, no nipple discharge and no tenderness. External genitalia: Normal external genitalia appropriate for age. Vagina:No lesion inspected. Normal support. No abnormal vaginal discharge found. No lesions in the vagina. Cervix: Cervix absent. Uterus: Uterus absent. Adnexa: Right adnexa without tenderness or mass. Left adnexa without tenderness or mass. Normal leftadnexa Assessment/Plan Well woman exam with routine gynecological exam (primary encounter diagnosis) Comment:Reviewed and encouraged good nutrition, regular exercise, use of sunscreen, awareness of herbreasts, routine annuals and mammograms. Also age appropriate vaccinations and screening labs were discussed. Colonoscopy after age of 50 and DEXA scan after age 65. Bone health-adequate Vit D and calcium with weight bearing exercise. Encounter for screening mammogram for malignant neoplasm of breast Plan: BI SCREENING MAMMOGRAM BILATERAL Encounter for screening for malignant neoplasm of colon Comment Reviewed the options for colon cancer screening. sigmoidoscopy every 5 years, colonoscopy (gold standard) every 10 years, FOBT yearly, stool DNA. Patient is up to date on her screening Vasomotor symptoms due to menopause Comment: I explained that unfortunately, I can't renew her estradiol due the high risk involved given her age and medical co-morbidities(uncontrolled HTN, poorly controlled DM and hx of multiple CVA). We reviewed non- hormonal options and I recommended SSRI, brisdelle, explained that there was good response from the trials. We discussed possible SE and she is willing to try i. Follow arranged for 8 weeks Plan: PARoxetine mesylate,menop.sym, (BRISDELLE) 7.5 mg capsule This visit did not involve counseling and coordination that comprised more than 50% of the visit time. Victorina Bauer MD documented in this encounter Plan of Treatment Date Type Specialty Care Team Description 12/15/2019 Appointment Radiology Victorina Bauer MD [address] [place] [address] Dr. Salas [address] [place] [phone] 01/28/2020 Office Visit Obstetrics & Gynecology Chary Bauer MD [address] [place] [address] Dr. Salas [address] [place] [phone] 12/05/2020 Office Visit Obstetrics & Gynecology Chary Bauer MD [address] [place] [address] Dr. Salas [address] [place] [phone] Name Type Priority Associated Diagnoses Order S chedule BI SCREENING MAMMOGRAM IMAGING Routine Encounter for scre ening Expected: 12/03/2019, BILATERAL mammogram for malignant Expi res: 02/01/2021 neoplasm of breast Health Maintenance Due Date Last Done Comments [...] of this encounter Implants Implanted Type Area Retail Sales Vitamin Consultant Device Shelf Model / Serial Identifier Expiration / Lot Date Lens LENS Left: Eye John 08/21/2020 [id number] / Implanted: Qty: 1 on 01/18/2016 by Jordan Acuña MD at [facility] 1 [id number] / [id number] Sn60wf 21.0d LENS Right: John 10/21/2020 [id number] 21.0D / Implanted: Qty: 1 on 02/01/2016 by Jordan Acuña MD at [facility] Eye 2 [id number] / [id number] documented as of this encounter Results Not on filedocumented in this encounter Visit Diagnoses Diagnosis Well woman exam with routine gynecologic al exam - Primary Routine gynecological examination Encounter for screening mammogram for ma lignant neoplasm of breast Other screening mammogram Encounter for screening for malignant ne oplasm of colon Special screening for malignant neoplasm s, colon Vasomotor symptoms due to menopause documented in this encounter Insurance Payer Benefit Plan Subscriber ID Effective Dates Phone Address Type / Group BCBS OF [facility] [id number] 2016-Nigel [phone] [address] [place] PPO/POS [facility] [id number] [place] [address] documented as of this encounter
--- OUTSIDE RECORDS SUMMARY | 2020-02-15 08:19 | XMS REPORT | Summary of Care ---
:1955 Author Organization [facility] - [facility] Address [address] [place] [address] Care Team Providers Name Role Phone Trudy Caraballo Primary Care Provider Reason for Visit Reason Comments Rx Concern/Question Encounter Details Date Type Department Care Team Description 12/07/2019 Telephone [facility] Women's AdumVictorina MD Rx Concern/Question Healthcare- [address] Sam [facility] [address], [address] [place] [phone] Allergies Active Allergy Reactions Severity Noted Date [...] Encounter - Chula Steel RN - 12/07/2019 4:33 PM CDT Case#[id number] Authorized 12-03-2019 through 12/02/2020 Chula Steel RN 12/07/2019 4:35 PM Telephone Encounter - Stefania Cobos - 12/07/2019 3:17 PM CDTReceived fax, prior authorization request granted, prescription can now be processed. elephone Encounter - Kota Cobosha Edwin - 12/07/2019 3:00 PM CDTFax received, Additional information required from [employer]ious, request for Paroxetine Mesylate 7.5 mg documented in this encounter Plan of Treatment Date Type Specialty Care Team Description 12/15/2019 Appointment Radiology Victorina Bauer MD [address] [place] [address] Dr. Salas [address] [place] [address] 15-1500 01/28/2020 Office Visit Obstetrics & Gynecology Chary Bauer MD [address] [place] [address] Dr. Salas [address] [place] [address] 15-1500 12/05/2020 Office Visit Obstetrics & Gynecology Chary Bauer MD [address] [place] [address] Dr. Salas [address] [place] [address] 15-1500 Health Maintenance Due Date Last Done [...] of this encounter Implants Implanted Type Area Pumper Hand Device Shelf Model / Serial Identifier Expiration / Lot Date Lens LENS Left: Eye John 08/21/2020 SN60WF / Implanted: Qty: 1 on 01/18/2016 by Jordan Acuña MD at [facility] 2 [id number] / [id number] Sn60wf 21.0d LENS Right: John 10/21/2020 SN60WF 21.0D / Implanted: Qty: 1 on 02/01/2016 by Jordan Acuña MD at [facility] Eye 3 [id number] / [id number] documented as of this encounter Results Not on filedocumented in this encounter Insurance Payer Benefit Plan Subscriber ID Effective Dates Phone Address Type / Group BCBS OF [facility] [id number] 2016-Nigel [phone] [address] PPO/POS [place] t 7 [id number] [place] [address] documented as of this encounter
--- OUTSIDE RECORDS SUMMARY | 2020-02-15 08:19 | XMS REPORT | Summary of Care ---
:1955 Author Organization [facility] Address [address] [place] [address] Care Team Providers Name Role Phone Carlos A Caraballoothy Krista Primary Care Provider Reason for Referral Radiology Services (Routine) Status Reason Specialty Diagnoses / Referred By Referred To Procedures Contact Contact New Request Diagnostic Diagnoses Encounter for screening mammogram for malignant neoplasm of breast Victorina Bauer, Radiology Procedures BI SCREENING MAMMOGRAM BILATERAL [address] [place] [address] DrKev [address] [place] [address] Reason for Visit Reason Comments Well Woman Exam Encounter Details Date Type Department Care Team Description 12/03/2019 Office Visit [facility] Women's Victorina Bauer MD Well woman exam with routine gynecologic al exam (Primary Dx); [facility]- [address] Encounter for screening mamm ogram for malignant neoplasm of breast; [address] [place] [address] Encounter for screening for malignant ne oplasm of colon; Drive, [address] Vasomotor symptoms [place] [phone] Allergies Active Allergy Reactions [...] in this age group Every exam 1 [employer] last reviewed this educational content on 04/18/201519998940-0642 [employer]. [address] [place] [address], [place] [address]. All rights reserved. This information is not [...] breast self-examination (BSE). These experts include the [place] [employer] and the [place] [employer]. Some experts [...] benign. This means they are not cancer. [employer] last reviewed this educational content on 10/22/201619996254-2556 [employer]. [address] [place] [address], [place] [address]. All rights reserved. This information is not [...] had a breast biopsy or surgery Youre [employer] last reviewed this educational content on 09/21/201819990731-8846 [employer]. [address] [place] [address], [place] [address]. All rights reserved. This information is not [...] Left 01/18/2016 Surgeon: Jordan Acuña MD; Location: [facility] OR [facility] PHACOEMULSIFICATION OF CATARACT WITH INTRAOCULAR LENS IMPLANT Right 02/01/2016 Surgeon: Jordan Acuña MD; Location: [facility] OR [facility] Social History Socioeconomic History Marital status: Spouse [...] file Gets together: Not on file Attends shinto service: Not on file Active member of [...] Description 12/15/2019 Appointment Radiology Victorina Bauer MD [address] [place] [address] Dr. Sal[address] [place] [address] 15-1500 01/28/2020 Office Visit Obstetrics & Gynecology Chary Bauer MD [address] [place] [address] Dr. Salas [address] [place] [address] 7[address] 15-1500 12/05/2020 Office Visit Obstetrics & Gynecology Chary Bauer MD [address] [place] [address] Dr. Salas [address] [place] [address] 15-1500 Name Type Priority Associated Diagnoses [...] of this encounter Implants Implanted Type Area Test Specialist Device Shelf Model / Serial Identifier Expiration / Lot Date Lens LENS Left: Eye John 08/21/2020 SN60WF / Implanted: Qty: 1 on 01/18/2016 by Jordan Acuña MD at [facility] 0 [id number] / [id number] Sn60wf 21.0d LENS Right: John 10/21/2020 SN60WF 21.0D / Implanted: Qty: 1 on 02/01/2016 by Jordan Acuña MD at [facility] Eye 3 [id number] / [id number] documented as of this encounter Results [...] Phone Address Type / Group BCBS OF [facility] [id number] 2016-Nigel [phone] [address] PPO/POS [facility] 7 [id number] [place] [address] documented as of this encounter
--- OUTSIDE RECORDS SUMMARY | 2020-02-15 08:20 | XMS REPORT | Summary of Care ---
:1955 Author Organization [facility] Address [address] [place] [address] Care Team Providers Name Role Phone Trudy Caraballo Primary Care Provider Reason for Visit Reason Comments Rx Concern/Question Encounter Details Date Type Department Care Team Description 12/10/2019 Telephone [facility] Women's Victorina Bauer MD Rx Concern/Question Healthcare- [address] Sam [facility] [address] [place] [phone] Allergies Active Allergy Reactions Severity Noted Date Comments Cephalexin Unknown - See comments 01/17/2016 documented as of this encounter (statuses as of 12/13/2019) Medications Medication Sig Dispensed Refills Start Date [...] as of this encounter (statuses as of 12/13/2019) Active Problems Problem Noted Date Hypertensive urgency 10/28/2018 Hypertensive emergency 10/28/2018 Acute on chronic diastolic congestive heart failure IDDM (insulin dependent diabetes mellitus) 10/28/2018 Obesity (BMI 30-39.9) 02/01/2016 documented as of this encounter (statuses as of 12/13/2019) Social History Tobacco Use Types Packs/Day Years [...] Telephone Encounter - Chula Steel RN - 12/13/2019 2:12 PM CDTSee PA approval from 12/07/2019. Chula Steel RN 12/13/2019 2:12 PM Telephone Encounter - Stefania Cobos - 12/10/2019 3:46 PM CDTReceived fax, [place] for PARoxetine mesylate,menop.sym, (BRISDELLE) 7.5 mg capsule documented in this encounter Plan of Treatment Date Type Specialty Care Team Description 12/15/2019 Appointment Radiology Victorina Bauer MD [address] [place] [address] Dr. Sal[address] [place] [phone] 01/28/2020 Office Visit Obstetrics & Gynecology Chary Bauer MD [address] [place] [address] Dr. Sal[address] [place] [address] [phone] 12/05/2020 Office Visit Obstetrics & Gynecology Chary Bauer MD [address] [place] [address] Dr. Salas [address] [place] [address] [phone] Health Maintenance Due Date Last Done Comments [...] of this encounter Implants Implanted Type Area Mountain Guide Device Shelf Model / Serial Identifier Expiration / Lot Date Lens LENS Left: Eye John 08/21/2020 SN60WF / Implanted: Qty: 1 on 01/18/2016 by Jordan Acuña MD at [facility] 2 [id number] / [id number] Sn60wf 21.0d LENS Right: John 10/21/2020 SN60WF 21.0D / Implanted: Qty: 1 on 02/01/2016 by Jordan Acuña MD at [facility] Eye 3 [id number] / [id number] documented as of this encounter Results Not on filedocumented in this encounter Insurance Payer Benefit Plan Subscriber ID Effective Dates Phone Address Type / Group BCBS OF [facility] [id number] 2016-Nigel [phone] [address] PPO/POS [place] t 7 [id number] [place] [address] documented as of this encounter
--- OUTSIDE RECORDS SUMMARY | 2020-02-15 08:20 | XMS REPORT | Summary of Care ---
:1955 Author Organization [facility] Address [address] [place] [address] Care Team Providers Name Role Phone Tin Hart Primary Care Provider Reason for Visit Reason Comments Follow-up vasomotor symptoms Encounter Details Date Type Department Care Team Description 02/11/2020 Telemedicine Visit [facility] Women's AdumVictorina, Vasomotor symptoms Healthcare- MD due to menopause [address] (Primary Dx) [address] [place] [address] Dr. Perez, [address] [place] [phone] Allergies Active Allergy Reactions Severity Noted Date Comments Cephalexin Unknown - See comments 01/17/2016 documented as of this encounter (statuses as of 02/11/2020) Medications Medication Sig Dispensed Refills Start End Status Date Date aspirin 81 mg Take 81 mg by 0 Ac tive chewable tablet mouth daily. isosorbide Take 60 mg by 0 Activ e mononitrate mouth 2 (two) (IMDUR) 60 mg 24 times daily. hr tablet metoprolol Take 100 mg by 0 Acti ve succinate XL mouth 2 (two) (TOPROL XL) 100 mg times daily. 24 hr tablet amLODIPine Take 10 mg by 0 Activ e (NORVASC) 10 mg mouth daily. tablet DULAGLUTIDE inject under the 0 Active (TRULICITY SC) skin weekly. insulin detemir inject 40 Units 0 Active (LEVEMIR FLEXTOUCH under the skin 2 U-100 INSULN SC) (two) times daily. atorvastatin 80 mg Take 80 mg by 0 Active tablet mouth at bedtime. clopidogrel Take 75 mg by 0 Acti ve (PLAVIX) 75 mg mouth daily. tablet insulin lispro inject 5 Units 0 Active (HUMALOG U-100 under the skin INSULIN SC) before meals. metFORMIN 500 mg Take 500 mg by 0 Active tablet mouth 2 (two) times daily with meals. cloNIDine 0.2 mg clonidine HCl 0.2 0 Active tablet mg tablet hydrALAZINE 100 mg hydralazine 100 mg tablet 0 Active tablet Take 1 tablet 3 times a day by oral route. CYANOCOBALAMIN, Take by mouth. 0 Active VITAMIN B-12, ORAL mv-min/iron/folic/ Take by mouth. 0 Active calcium/vitK (WOMEN'S MULTIVITAMIN ORAL) spironolactone 25 spironolactone 25 mg tablet 0 Active mg tablet Take 1 tablet twice a day by oral route. PARoxetine Take 1 capsule by 30 capsule 5 12/03/19 Active mesylate,menop.sym mouth daily. 20 , (BRISDELLE) 7.5 mg capsuleIndications : Vasomotor symptoms due to menopause azilsartan 80 mg Take 1 tablet by 0 Active Tab mouth daily. estradiol Take 2 mg by mouth 0 D iscontinued (ESTRACE) 1 mg daily. 020 (Ther apy tablet completed) documented as of this encounter (statuses as of 02/11/2020) Active Problems Problem Noted Date Vasomotor symptoms due to menopause 02/11/2020 Hypertensive urgency 10/28/2018 Hypertensive emergency 10/28/2018 Acute on chronic diastolic congestive heart failure IDDM (insulin dependent diabetes mellitus) 10/28/2018 Obesity (BMI 30-39.9) 02/01/2016 documented as of this encounter (statuses as of 02/11/2020) Social History Tobacco Use Types Packs/Day Years Used Date Never Smoker Smokeless Tobacco: Never Used Alcohol Use Drinks/Week oz/Week Comments Yes 0 Standard drinks or equivalent ocassionally Sex Assigned at Date Recorded Not on file documented as of this encounter Last Filed Vital Signs Not on filedocumented in this encounter Progress Notes Victorina Bauer MD - 02/11/2020 1:00 PM CST HPI: Verbal consent obtained from Patient: Aziza Rich due to COVID 19 pandemic telehealth serviceswas provided below. Communication with patient was conducted via Video Call. Location of Patient: Workplace Location of Provider: Office Date of Service: 02/11/2020 HPI: Aziza Rich is a 65 year old female with for a follow up visit for vasomotor symptoms 8 weeks after starting Briselle. She reports that her symptoms, although have not resolved, they have definitely have improved on themedication and she would like to continue with it. Past Medical History: Diagnosis Date Cataract CVA (cerebral vascular accident) DM (diabetes mellitus) Hyperlipemia Hypertension MEDICATIONS: Outpatient Medications Marked as Taking for the 02/11/20 encounter (Telemedicine Visit) with Victorina Bauer MD Medication Sig Dispense Refill azilsartan 80 mg Tab Take 1 tablet by mouth daily. cloNIDine 0.2 mg tablet clonidine HCl 0.2 mg tablet CYANOCOBALAMIN, VITAMIN B-12, ORAL Take by mouth. hydrALAZINE 100 mg tablet hydralazine 100 mg tablet Take 1 tablet 3 times a day by oral route. mv-min/iron/folic/calcium/vitK (WOMEN'S MULTIVITAMIN ORAL) Take by mouth. PARoxetine mesylate,menop.sym, (BRISDELLE) 7.5 mg capsule Take 1 capsule by mouth daily. 30 capsule 5 atorvastatin 80 mg tablet Take 80 mg by mouth at bedtime. clopidogrel (PLAVIX) 75 mg tablet Take 75 mg by mouth daily. insulin detemir (LEVEMIR FLEXTOUCH U-100 INSULN SC) inject 40 Units under the skin 2 (two) timesdaily. metFORMIN 500 mg tablet Take 500 mg by mouth 2 (two) times daily with meals. amLODIPine (NORVASC) 10 mg tablet Take 10 mg by mouth daily. aspirin 81 mg chewable tablet Take 81 mg by mouth daily. DULAGLUTIDE (TRULICITY SC) inject under the skin weekly. isosorbide mononitrate (IMDUR) 60 mg 24 hr tablet Take 60 mg by mouth 2 (two) times daily. metoprolol succinate XL (TOPROL XL) 100 mg 24 hr tablet Take 100 mg by mouth 2 (two) times daily. REVIEW OF SYSTEMS: Constitutional: Denies Fever, chills Cardiovascular: Denies chest pain or palpitations Respiratory: Denies shortness of breath Gastrointestinal: Denies nausea, vomiting, diarrhea or constipation Genitourinary: Denies dysuria, increased frequency or urgency Neuro: Denies headaches Psych: Denies depression or anxiety Vital Signs There were no vitals taken for this visit. TELEHEALTH EXAM Constitutional: Alert and in no distress Respiratory: Breathing comfortably Neuro: Answering questions appropriately Psych: Normal Affect Physical Exam Discussion in lieu of physical examination. ASSESSMENT/ PLAN Aziza Rich is a 65 year old female with PMH as above presenting with: 1. Vasomotor symptoms due to menopause Symptoms have improved and patient denies any SE with the medications. I reviewed expectation of thetherapy will her. Continue Brisdelle as prescribed. She has enough refills for now and will call if she requires any more before her [employer] next year. I also reviewed the result of her mammogram with her- which was benign Plan Plan of care, desired health behaviors, goals, Ddx, and any prescribed medications were discussed with the patient. I spent 12 minute(s) conducting this Telehealth encounter with the patient. Education resources and self- management tools were provided is the AVS which is accessible through [employer] Patient/guardian/family verbalized understanding and agrees to the plan of care. Barriers to care:None. Ability to manage care: Good. If applicable, the [place] [employer] database was accessed to review any controlled substance prescription claims data. If the patient is taking prescribed medications, the [employer] Scripts prescription claims data in [employer] was reviewed to assess patient compliance with the medication treatment plan. COVID-19 precautions given including frequent handwashing, social distancing, cleaning and disinfecting, indications for testing, etc. Follow-up: Return as scheduled. Follow-up sooner if any problems or concerns. Victorina Bauer MD documented in this encounter Plan of Treatment Date Type Specialty Care Team Description 12/05/2020 Office Visit Obstetrics & Gynecology Chary Bauer MD [address] [place] [address] Dr. Pacheco [place] [phone] Health Maintenance Due Date Last Done [...] Recombinant Vaccine (SHINGRIX) 2007 (1 of 2) HgA1C 04/29/2019 10/27/2018 CREATININE (SERUM) 10/29/2019 10/28/2018, 10/27/2018, 01/11/2016 INFLUENZA VACCINE (#1) 2019 Breast Cancer Screening (MAMMOGRAM) 12/14/2020 12/15/2019, 10/11/2014 documented as of this encounter Implants Implanted Type Area Power And Recovery Shift Engineer Device Shelf Model / Serial Identifier Expiration / Lot Date Lens LENS Left: Eye John 08/21/2020 SN60WF / Implanted: Qty: 1 on 01/18/2016 by Jordan Acuña MD at [facility] 8 [id number] / [id number] Sn60wf 21.0d LENS Right: John 10/21/2020 SN60WF 21.0D / Implanted: Qty: 1 on 02/01/2016 by Jordan Acuña MD at [facility] Eye 6 [id number] / [id number] documented as of this encounter Results Not on filedocumented in this encounter Visit Diagnoses Diagnosis Vasomotor symptoms due to menopause - Pr imary documented in this encounter Insurance Payer Benefit Plan Subscriber ID Effective Dates Phone Address Type / Group [facility] [id number] 2016-Nigel [phone] [address] PPO/POS [place] t 7 [id number] [place] [address] documented as of this encounter
--- OUTSIDE RECORDS SUMMARY | 2020-02-15 08:20 | XMS REPORT | Summary of Care ---
:[address] [facility] Address [address] [place] [address] Care Team Providers Name Role Phone Tin Hart Primary Care Provider Reason for Referral Radiology Services (Routine) Status Reason Specialty Diagnoses / Referred By Referred To Procedures Contact Contact Closed Diagnostic Diagnoses Encounter for screening mammogram for malignant neoplasm of breast Victorina Bauer, Radiology Procedures BI SCREENING MAMMOGRAM BILATERAL [address] [place] [address] Dr. Salas [address] [place] [address] Reason for Visit Radiology Services (Routine) Status Reason Specialty Diagnoses / Referred By Referred To Procedures Contact Contact Closed Diagnostic Diagnoses Encounter for screening mammogram for malignant neoplasm of breast Victorina Bauer, Radiology Procedures BI SCREENING MAMMOGRAM BILATERAL MD Sam Galileo Salas [address] [place] [address] Encounter Details Date Type Department Care Team Description 12/15/2019 Hospital Encounter [facility] Chary Bauer MD Arrived [facility] [address] [place] [address] Dr dimitry Salas [address] [place] [address] [place], [place] [phone] Allergies Active Allergy Reactions Severity Noted Date Comments Cephalexin Unknown - See comments 01/17/2016 documented as of this encounter (statuses as of 12/16/2019) Medications Medication Sig Dispensed Refills Start Date [...] as of this encounter (statuses as of 12/16/2019) Active Problems Problem Noted Date Hypertensive urgency 10/28/2018 Hypertensive emergency 10/28/2018 Acute on chronic diastolic congestive heart failure IDDM (insulin dependent diabetes mellitus) 10/28/2018 Obesity (BMI 30-39.9) 02/01/2016 documented as of this encounter (statuses as of 12/16/2019) Social History Tobacco Use Types Packs/Day Years [...] Treatment Date Type Specialty Care Team Description 01/28/2020 Office Visit Obstetrics & Gynecology Chary Bauer MD [address] [place] [address] Dr. Salas [address] [place], [place] [phone] 12/05/2020 Office Visit Obstetrics & Gynecology Chary Bauer MD [address] [place] [address] Dr. Salas [address] [place], [place] [phone] Health Maintenance Due Date Last [...] of this encounter Implants Implanted Type Area Residence Counselor Device Shelf Model / Serial Identifier Expiration / Lot Date Lens LENS Left: Eye John 08/21/2020 SN60WF / Implanted: Qty: 1 on 01/18/2016 by Jordan Acuña MD at [facility] 9 [id number] / [id number] Sn60wf 21.0d LENS Right: John 10/21/2020 SN60WF 21.0D / Implanted: Qty: 1 on 02/01/2016 by Jordan Acuña MD at [facility] Eye 1 [id number] / [id number] documented as of this encounter Procedures Procedure Name Priority Date/Time Associated Diagnosis Comme nts BI SCREENING Routine 12/15/2019 8:37 AM Encounter for Results for this MAMMOGRAM BILATERAL CDT screening mammogram p rocedure are in for malignant the results neoplasm of breast section. documented in this encounter Results BI SCREENING MAMMOGRAM BILATERAL (12/15/2019 8:37 AM CDT) Specimen Narrative Performed At This result has an attachment that is no t available. Examination: PACS BI SCREENING MAMMOGRAM BILATERAL History: Patient is 64 year old and is seen for: Routine scre ening. Computer-aided detection (CAD) utilized. Comparisons: 10/11/2014 DIGITAL MAMMOGRAM, SCREENING Findings: The breasts have scattered areas of fibroglandular den sity. There is no evidence of suspicious masses, calcifications, or othe r abnormal findings. Impression: No signs of malignancy. Recommendation: Annual mammographic follow-up - Bilateral BI-RADS Category: Both 2 - Benign Performing Organization Address City/State/Zipcode Phone Number PACS documented in this encounter Visit Diagnoses Diagnosis Encounter for screening mammogram for ma lignant neoplasm of breast Other screening mammogram documented in this encounter Insurance Payer Benefit Plan Subscriber ID Effective Dates Phone Address Type / Group BCBS OF [employer] [place] [id number] 2016-Nigel [phone] [address] PPO/POS [place] t 7 [id number] [place] [address] documented as of this encounter
[2020-02-15] MEDS ORDERED: LIDOCAINE 1% 20 ML MDV ONE (09:36)
[2020-02-15] MEDS ORDERED: HEPA 1000U/500MLS 1,000 UNIT/500 ML BAG IV ONE (09:36)
[2020-02-15] MEDS ORDERED: MIDAZOLAM HCL 2 MG/2 ML INJ ONE (09:41)
[2020-02-15] MEDS ORDERED: ATROPINE SULF 1 MG/10 ML SYR IV ONE (09:42)
[2020-02-15] MEDS ORDERED: NA CHLORIDE 0.9% 0 ML ONE (09:42)
[2020-02-15] MEDS ORDERED: FENTANYL CITR 100 MCG/2 ML ONE (09:42)
--- NOTE | 2020-02-15 11:52 | OP ---
Surgeon: Mario Yang MD Die Set Up Worker: Helga Calvillo. The patient will be at bedrest for 2 hours. After Angio-Seal, she will go home. Continue her home m edication and see me in the office in the next 2 weeks. Indications: The patient was admitted today to the clinical genetics laboratory chief as an outpatient for left heart catheter ization, selective coronary arteriogram, and selective bilateral renal angiograms. Reason for consul tation and procedure was unstable angina and severe uncontrolled hypertension with systolic over 240 occasionally. The patient has multiple cardiac risk factors for heart disease including hypertension , dyslipidemia, and diabetes. Procedure In Detail: She was brought to the clinical genetics laboratory chief today as an outpatient, prepped and draped in t he routine sterile fashion. Given Versed and fentanyl for IV sedation. A 6-Saudi Arabian sheath was introd uced in the right common femoral artery successfully using the Seldinger technique after 10 cc of Xyl ocaine. JL4 and JR4 catheter were used selectively to select the left main and right main. There wa s a 6-Saudi Arabian catheter. The right coronary artery was tortuous with mild plaquing. The LAD and circu mflex had minimal plaquing with tortuosity. She had short left main that was normal. There was no f ocal stenosis. Total conscious sedation was 45 minutes. Complications were none. Blood loss was 5 mL. Angiography in the right common femoral artery was normal. Angio-Seal was used to close the jacqueline e. The JR4 catheter was used after the RCA injection to select the right renal artery and the left renal artery selectively. Angiography of the renal arteries was normal. Final Diagnoses: 1.Hypertension, normal renal. 2.Unstable angina with minimal coronary artery disease, tortuous blood vessels. ESTELA/TONIE Voice ID: [id number] Report ID: [id number]
[2020-02-15 12:32] VITALS: BP 110/46; TEMP 97.5; O2SAT 97
== END 2020-02-15 13:03 | disposition home or self-care (01) ==
LOC: CCL 07:39
DX: I25.110 Atherosclerotic heart disease of native coronary artery with unstable angina pectoris (principal); I10 Essential (primary) hypertension; I77.1 Stricture of artery; R00.2 Palpitations; E78.2 Mixed hyperlipidemia; E11.9 Type 2 diabetes mellitus without complications; Z87.891 Personal history of nicotine dependence; Z88.1 Allergy status to other antibiotic agents; Z20.828 Contact with and (suspected) exposure to other viral communicable diseases; Z86.73 Personal history of transient ischemic attack (TIA), and cerebral infarction without residual deficits; Z82.49 Family history of ischemic heart disease and other diseases of the circulatory system
CPT/HCPCS: 85025; 80048; 36415; 85610; 82947; 85730; 93454; 36252; U0002; C1893; C1760; J2250; J3010; J7040; J1644; J0583

== ENCOUNTER 2020-04-25 09:07 | Observation (INO) | payer BC ==
--- OUTSIDE RECORDS SUMMARY | 2020-04-25 09:48 | XMS REPORT | Clinical Summary ---
:1955 Author Organization [facility] Address [address] [place] [address] Care Team Providers Name Role Phone Unavailable [...] Not on file Results Not on fileafter 04/25/2019 Insurance Payer Benefit Plan / Subscriber ID Effective Dates Phone Addre ss Type Group BLUE BCBS PPO POS [id number] 2016-Nigel [phone] [address] [address] PPO CROSS/BLUE EPO CHOICE t 2 [facility] [id number] Advance Directives For more information, please contact: [phone] Code Status Date Activated Date Inactivated Comments Full Code 11/23/2016 11:43 AM 11/27/2016 9:42 PM This code status was determined by: Patient
--- OUTSIDE RECORDS SUMMARY | 2020-04-25 09:48 | XMS REPORT | Continuity of Care Document ---
:1955 Author Organization [facility] Care Team Providers Name Role Phone [facility] Unavailable Un available Problems Problem Status Onset Classification Date Comments Sourc e Date Reported Encounter for 11/17/19 06/01/2018 [facility] screening 18 Women's mammogram for malignant neoplasm of breast Z12.31 - ENCNTR Active 08/13/19 Alfred rial SCREEN MAMMOGRAM 18 Her snider FOR MA 436 - CVA Active 10/10/19 OPID 13 [place] Diabetes Mellitus Resolved Problem 10/18/2012 M H OPID [place] HTN Resolved Problem 10/18/2012 MH OPID [place] Hysterectomy Resolved Problem 10/18/2012 OPI D [place] TIA Resolved Problem 10/18/2012 OPID [place] Diabetes Resolved Problem 01/10/2020 [facility] Mellitus(Confirme Ne uro,[facility] d) [facility] Essential Resolved Problem 01/10/2020 [facility] hypertension Neuro,[facility] (disorder) [facility] Hysterectomy Resolved Problem 01/10/2020 Mische r (procedure) Neuro,[facility] Paresthesia Active Problem 01/10/2020 [facility] (finding) Neuro Transient Resolved Problem 01/10/2020 [facility] ischemic attack Neur o,[facility] (disorder) [facility] Palpitations Active 10/22/2012 [facility] Stroke Syndrome Active 10/22/2012 [facility] Type 2 Diabetes Active 10/22/2012 [facility] Complications - Uncontrolled Hyperlipidemia Active 10/22/2012 [facility] Hypertension Active 10/22/2012 [facility] Medications Medication Details Route Status Patient [...] Date Source Breast Mammo Scrn [place] 11/12/2017 [facility] incl CAD MA BILATERAL DIGITAL SCREENING MAMMOGRAM WITH CAD: 11/12/2017 CLINICAL: /Screening. Current study was evaluated with a [employer] d Detection (CAD) system. COMPARISON:No prior exams were available for [facility] florentino. TECHNIQUE: Mammographic view s were [...] is recommended. This exam was interpreted at [id number] for [facility]. Rhiannon Barnes M.D. dh/:11/14/2017 10:48:44 Surgical Supply Assistant(s): Brayan Alvarez [facility] letter sent: BI-RADS 1/2 Dense Mammogram BI-RADS: 2 Benign Brain w/wo contrast 10/16/2012 [facility] MRI REASON FOR EXAM: 436 Stroke syndrome. [...] Location Location Encounter Encounter Reason Attending ADM [place] Stat Source Details Type Number For Provider Date Date Visit AUDIT [id number] 10/01 /2012 Carolyn nieves OD [id number] Aubrey DAVIS 10/16 Active MH O PID CVA [place] AUDIT [id number] 10/22 /2012 Carolyn nieves INP, [id number] 11/25 10/22 [facility] Provider: /2012 DORCAS Lawson N, Status: Pen, Time: 3:30 PM [facility] Outpt Diag [id number] Trudy 11/12 11/13 [facility] Outpatient Services Caraballo /2017 [facility] [id number] Dyllan 01/06 [facility] [id number] Jacob 01/06 [facility]2019 Neur o [place] Procedures Procedure Code Date Perfomer Comments Source Hysterectomy [id number] [facility] Neuro,[facility] Women's Assessment and Plan No Data Provided for This Section Plan of Care Plan of Care Date Source MRI Brain w/wo contrast 76999 10/22/2012 [facility] 12/11/2012 Routine[N] 30 Day Event Monitor Recording 09/30/2012 Routine MRI Brain w/wo contrast 10/01/2012 [facility] 12/11/2012 Routine[N] 30 Day Event Monitor Recording 09/30/2012 Routine Social History Social History Date Source No data available for this 01/08/2020 [facility] Neuro section No data available for this 11/13/2017 [facility] Women's section Marital History - Single 10/22/2012 [facility] (Active) Occupation: (Active) Never A Smoker (Active) Family History Value Date Source Paternal history of 10/22/2012 [facility] Howard-Rajinder Syndrome (Active) Paternal history of 10/01/2012 [facility] Howard-Rajinder Syndrome (Active) Advance Directives Order Name Results Value Date Source Advance Directives Advance Directives No Advance 10/22/2012 [facility] Directives available. Advance Directives Advance Directives No Advance 10/01/2012 [facility] Directives available. Functional Status No Data Provided for This Section
--- OUTSIDE RECORDS SUMMARY | 2020-04-25 09:49 | XMS REPORT | Continuity of Care Document ---
:1955 Author Organization [facility] t Address [address] [place] [address] Care Team Providers Name Role Phone Jerica Bauer MD Attending Clinician Darin Ragland Attending Clinician Krista Caraballo Attending Clinician DENYS GENTILE Attending Clinician Unavail able DENYS GENTILE Admitting Clinician Unavail able Problems Condition Condition Condition Status Onset Resolution Last Treating Co mments Source Name Details Category Date Date Treatment Clinician Date Z03.23 - Diagnosis Active 2017-11-12 M emoria ENCNTR 08-12 11:27:00 l SCREEN Z12. - 00:01: Feliciano montgomery MAMMOGRAM ENCNTR 00 FOR MA SCREEN MAMMOGRAM FOR MA Active 08/12/2017 [facility] Received Received Disease [facility] plas[facility]oge plasminoge 00:00: Mn dical n n 00 Center activator activator (t-PA) (t-PA) less than less than 24 hours 24 hours prior to prior to arrival arrival Mixed Mixed Disease Active [facility] hyperlipid hyperlipid 11-24 [facility] - emia emia 00:00: Medical 00 Center Acute Acute Disease Active [facility] ischemic ischemic 9-02 [facility] stroke stroke 00:[facility]: [facility] 436 - CVA Diagnosis Active 2012-10-16 Memoria 7-19 10:59:00 l 436 - 00:01: Timothy CVA 00 Active 10/09/2012 [facility] [place] Diabetes Problem Resolve 2012-10-18 Mn moria Mellitus d 21:11:31 l Diabetes Feliciano n Mellitus Resolved Problem 10/18/2012 [facility] [place] HTN Problem Resolve 2012-10-18 Alfred carmella d 21:11:31 l HTN [facility] Resolved Problem 10/18/2012 [facility] [place] Hysterecto Problem Resolve 2012-10-18 Memoria my d 21:11:31 l [facility] Hysterecto my Resolved Problem 10/18/2012 [facility] TIA Problem Resolve 2012-10-18 Alfred carmella d 21:11:31 l TIA [place] Resolved Problem 10/18/2012 HERIBERTOD [facility] Diabetes Problem Resolve 2020-01-10 Mn moria Mellitus(C d 00:18:11 l onfirmed) Diabetes Her snider Mellitus(C onfirmed) Resolved Problem 01/10/2020 [facility] Women[facility] Essential Problem Resolve 2020-01-10 M emoria hypertensi d 00:18:11 l on Timothy (disorder) Essential hypertensi on (disorder) Resolved Problem 01/10/2020 [facility] Women's Hysterecto Problem Resolve 2020-01-10 Memoria my d 00:18:11 l (procedure Feliciano n ) Hysterecto my (procedure ) Resolved Problem 01/10/2020 [facility] Women[facility] Transient Problem Resolve 2020-01-10 M emoria ischemic d 00:18:11 l attack [facility] (disorder) Transient ischemic attack (disorder) Resolved Problem 01/10/2020 [facility] Women's Paresthesi Problem Active 2020-01-10 M emoria a 00:18:11 l (finding) Timothy Paresthesi a (finding) Active Problem 01/10/2020 [facility] Neuro Palpitatio Problem Active 2012-10-22 M emoria ns 09:59:17 l [place] Palpitatio ns Active 10/22/2012 [facility] Stroke Problem Active 2012-10-22 Memor ia Syndrome 09:59:17 l Stroke [facility] Syndrome Active 3 [facility] Type 2 Problem Active 2012-10-22 Memor ia Diabetes 09:59:17 l With Type 2 Timothy Neurologic Diabetes al With Complicati Neurologic ons - al Uncontroll Complicati ed ons - Uncontroll ed Active 10/22/2012 [facility] Hyperlipid Problem Active 2012-10-22 M emoria emia 09:59:17 l [place] Hyperlipid emia Active 3 [facility] Hypertensi Problem Active 2012-10-22 M emoria on 09:59:17 l [facility] Hypertensi on Active 10/22/2012 [facility] Encounter Problem 2018-06-01 2018-06-01 Memoria for 11-16 11:11:51 11:11:51 l screening 03:08: Timothy mammogram Encounter 40 for for malignant screening neoplasm mammogram of breast for malignant neoplasm of breast 11/16/2017 06/01/2018 [facility] Women[facility] Allergies, Adverse Reactions, Alerts Allergy Allergy Status Severity Reaction(s) Onset Inactive Treating Comm ents Source Name Type Date Date Clinician Cephalex Propensi Active rash [facility] ty to 11-23 [facility] - adverse 00:00: Medical reaction 00 Center s Keflex Keflex Active Memoria l [facility] Keflex Keflex Active Memoria TABS TABS l [place] Family History Family Member Diagnosis Comments Start Date Stop Date Source Unknown Family Family History 2012-10-01 2012-10-01 Memori al [facility] Member 14:02:26 14:02:26 Social History Social Habit Start Date Stop Date Quantity Comments Source Sex Assigned At [facility] Tobacco use and 2016-11-23 2016-11-23 Never used [facility] - exposure 00:00:00 00:00:00 Medical Center Alcohol intake 2016-11-23 2016-11-23 Current drinker [facility] Melissa Pitts - 00:00:00 00:00:00 of alcohol [facility] Center (finding) Social History 2012-10-22 2012-10-22 [facility] yolette 09:59:17 09:59:17 Smoking Status Start Date Stop Date Source Never smoker [facility] Medications Ordered Filled Start Stop Current Ordering [...] [address] (AMARYL) 4 906 by mouth [facility] - MG tablet 19:42: [...] Oral 8-01 l Tablet 09:59: Timothy 17 Lantus 100 Yes (Active) Me moria UNIT/ML 8-01 l Subcutaneou 09:59: Feliciano n s Solution 17 Norvasc 10 Yes (Active) Me moria MG Oral 8-01 l Tablet 09:59: [facility] 17 HydrALAZINE Yes (Active) M emoria HCl TABS 8-01 l 09:59: [place] 17 Metoprolol Yes (Active) Me moria Tartrate 8-01 l 100 MG Oral 09:59: Feliciano n Tablet 17 Simvastatin Yes (Active) M emoria 40 MG Oral 8-01 l Tablet 09:59: Timothy 17 HumaLOG 100 Yes (Active) M emoria UNIT/ML 8-01 l Subcutaneou 09:59: Feliciano n s Solution 17 Procedures Procedure Date / Time Performed Performing Clinician Sourc e Hysterectomy Lyla Aguirre Plan of Care Planned Activity Planned Date Details Comments Source Future Scheduled Test 2012-10-22 09:59:17 Plan of Care [code [facility] = 01807-0] Future Scheduled Test 2012-10-01 14:02:26 Plan of Care [code [facility] = 46225-1] Encounters Start End Encounter Admission Attending Care Care Encounter Source Date/Time Date/Time Type Type Clinicians Facility Department ID 2020-02-11 2020-02-11 [facility] [place] [id number] 13:06:46 13:36:46 ne Visit Victorina Rodriguez [id number] [place] [id number] [facility] [id number] [address] 2020-01-07 2020-01-07 [id number] 08:15:00 23:59:59 Dyll[place] 00 Darin 2019-12-15 2019-12-[id number] 08:11:04 23:59:00 Encounter Victorina Rodriguez [id number] [place] [id number] [place] [id number] 2019-12-10 2019-12-10 Telephone Adum, [facility] [id number] 00:00:00 00:00:00 Victorina Rodriguez [id number] [place] [id number] Professio [id number] [address] 2019-12-07 2019-12-07 Telephone Adum, [facility] [id number] 00:00:00 00:00:00 Victorina Rodriguez [id number] [place] [id number] Professio [id number] [address] 2019-12-07 2019-12-07 Telephone Adum, [facility] [id number] 00:00:00 00:00:00 Victorina Rodriguez [id number] [place] [id number] Professio [id number] [address] 2019-12-03 2019-12-03 Office Adum, [facility] [id number] 09:19:27 10:40:16 Visit Victorina Rodriguez [id number] [place] [id number] Professio [id number] [address] 2017-11-12 2017-11-12 Outpatient Caraballo, [id number] 11:19:00 23:59:00 Trudy Velasco [id number] 2012-10-22 2012-10-22 [id number] 04:59:18 04:59:17 2012-10-01 2012-10-01 [facility] [id number] 09:02:50 09:02:26 Results Test Description Test Time Test Comments Results Result Comments Source POCT-GLUCOSE METER 2016-11-27 17:03:00 Test Item Value Reference Range Interpretation Comme nts POC-GLUCOSE METER (BEWIL) (test 239 mg/dL 70-110 H TESTED AT [facility] [address] [facility] code = 1538) [facility] 7703 0 POCT-GLUCOSE [id number] 12:13:00 Test Item Value Reference Range Interpretation Comments POC-GLUCOSE METER 287 mg/dL 70-110 H TESTED AT [place] [address] ([facility]) (test code = [place] 1538) [address] POCT-GLUCOSE [id number] 07:44:00 Test Item Value Reference Range Interpretation Comments POC-GLUCOSE METER 245 mg/dL 70-110 H TESTED AT [place] [address] ([facility]) (test code = [place] 1538) [address] POCT-GLUCOSE [id number] 21:19:00 Test Item Value Reference Range Interpretation Comments POC-GLUCOSE METER 344 mg/dL 70-110 H TESTED AT [place] [address] ([facility]) (test code = [place] 1538) [address] POCT-GLUCOSE [id number] 17:59:00 Test Item Value Reference Range Interpretation Comments POC-GLUCOSE METER 215 mg/dL 70-110 H TESTED AT [place] [address] ([facility]) (test code = [place] 1538) [address] POCT-GLUCOSE [id number] 12:57:00 Test Item Value Reference Range Interpretation Comments POC-GLUCOSE METER 251 mg/dL 70-110 H TESTED AT [place] [address] ([facility]) (test code = [place] 1538) [address] POCT-GLUCOSE [id number] 08:01:00 Test Item Value Reference Range Interpretation Comments POC-GLUCOSE METER 192 mg/dL 70-110 H TESTED AT [place] [address] ([facility]) (test code = [place] 1538) [address] POCT-GLUCOSE [id number] 02:32:00 Test Item Value Reference Range Interpretation Comments POC-GLUCOSE METER 125 mg/dL 70-110 H TESTED AT [place] [address] ([facility]) (test code = [place] 1538) [address] POCT-GLUCOSE [id number] 20:52:00 Test Item Value Reference Range Interpretation Comments POC-GLUCOSE METER 136 mg/dL 70-110 H TESTED AT [place] [address] ([facility]) (test code = [place] 1538) [address] POCT-GLUCOSE [id number] 16:19:00 Test Item Value Reference Range Interpretation Comments POC-GLUCOSE METER 243 mg/dL 70-110 H TESTED AT [place] [address] ([facility]) (test code = [place] [facility] 1538) [address] POCT-GLUCOSE [id number] 12:27:00 Test Item Value Reference Range Interpretation Comments POC-GLUCOSE METER 351 mg/dL 70-110 H Notified Joe Montgomery MD/TESTED ([facility]) (test code = AT [place] 455728) [facility] 7703 0 POCT-GLUCOSE [id number] 07:46:00 Test Item Value Reference Range Interpretation Comments POC-GLUCOSE METER 194 mg/dL 70-110 H TESTED AT [place] [address] ([facility]) (test code = [place] Joe [facility] 1538) [address] POCT-GLUCOSE [id number] 22:30:00 Test Item Value Reference Range Interpretation Comments POC-GLUCOSE METER 323 mg/dL 70-110 H Notified Joe Montgomery MD/TESTED ([facility]) (test code = AT [address] 1538) [facility] 7703 0 POCT-GLUCOSE [id number] 17:13:00 Test Item Value Reference Range Interpretation Comments POC-GLUCOSE METER 255 mg/dL 70-110 H TESTED AT [place] [address] ([facility]) (test code = [place] Joe [facility] 1538) [address] POCT-GLUCOSE [id number] 11:26:00 Test Item Value Reference Range Interpretation Comments POC-GLUCOSE METER 295 mg/dL 70-110 H TESTED AT [place] [address] ([facility]) (test code = PAL[place] Joe [facility] 1538) [address] [id number] 06:49:00 Test Item Value Reference Range Interpretation Comments RPR SCREEN ([facility]) (test code = Nonreactive Nonreactive 420) POCT-GLUCOSE [id number] 06:35:00 Test Item Value Reference Range Interpretation Comments POC-GLUCOSE METER 227 mg/dL 70-110 H TESTED AT [place] [address] ([facility]) (test code = KATHRINEONEIL Diaz [facility] 1538) [address] TROPONIN [id number] 01:14:00 Test Item Value Reference Range Interpretation Comments TROPONIN I ([facility]) (test code = 0.02 ng/mL 0.00-0.03 397) [...] NOT APPLICABLE FOR DIALYSIS PATIEN TS. FastingLIPID [id number] 01:08:00 Test Item Value Reference Range Interpretation [...] High >=190 FastingCBC W/PLT COUNT & AUTO [id number] 00:49:00 Test Item Value Reference Range Interpretation [...] (BEAKER) (test code = Normal 762) POCT-GLUCOSE [id number] 22:35:00 Test Item Value Reference Range Interpretation Comments POC-GLUCOSE METER 274 mg/dL 70-110 H TESTED AT [facility] 6720 (BEAKER) (test code = [place] 1538) [address] POCT-GLUCOSE [id number] 17:32:00 Test Item Value Reference Range Interpretation Comments POC-GLUCOSE METER 367 mg/dL 70-110 H Notified R Valentina FRAGA/TESTED (BEAKER) (test code = AT [facility] [address] [place] 1538) [place] [address] HEMOGLOBIN [id number] 16:47:00 Test Item Value Reference Range Interpretation Comments HEMOGLOBIN A1C 9.5 % 4.3-6.1 H POSSIBLE HEMO GLOBIN C (BEAKER) (test code = VARIAN T NOTED IN 368) HEMOGLOBIN A1C CHROMATOGRAPH. SUGGEST HEMOGLOBIN ELEC TROPHORESIS IF CLINICALLY I NDICATED. VITAMIN [id number] 13:17:00 Test Item Value Reference Range Interpretation Comments VITAMIN B12 (BEAKER) (test code = 633 pg/mL 213-816 774) TSH/FREE T4 IF [id number] 13:17:00 Test Item Value Reference Range Interpretation Comments THYROID STIMULATING HORMONE 0.78 uIU/mL 0.35-4.94 (BEAKER) (test code = 772) TROPONIN [id number] 12:56:00 Test Item Value Reference Range Interpretation [...] acute neurological disease, and persistent tachyarrhythmia.BASIC METABOLIC [id number] 12:48:00 Test Item Value Reference Range Interpretation [...] NOT APPLICABLE FOR DIALYSIS PATIEN TS. POCT-GLUCOSE [id number] 12:44:00 Test Item Value Reference Range Interpretation Comments POC-GLUCOSE METER 322 mg/dL 70-110 H Notified R N MD/TESTED (BEAKER) (test code = AT [facility] [address] [facility] 9558) [place] [address] CBC W/PLT COUNT & AUTO [id number] 12:32:00 Test Item Value Reference Range Interpretation [...] % 0-1 PERCENT (BEAKER) (test code = 2800)
[2020-04-25 13:27] LABS: Protime INR 0.96
[2020-04-25 13:28] LABS: Absolute Lymphocytes (CBC) 1.5 K/uL (0.7-4.9); Basophils % 0.5 % (0-1.3); Hematocrit 45.2 % (36.0-45.0); Lymphocytes % 27.6 % (15.3-44.8); MPV 8.8 fL (7.6-11.3); RBC Red Blood Cell Count 5.48 M/uL (3.86-4.86)
[2020-04-25 13:43] LABS: Albumin 3.6 g/dL (3.4-5.0); Bilirubin Direct 0.2 mg/dL (0-0.2); Bilirubin Total 0.8 mg/dL (0.2-1.0); Magnesium 2.2 mg/dL (1.8-2.4); Potassium 3.1 mmol/L (3.5-5.1); Protein, Total 7.7 g/dL (6.4-8.2); Troponin (Emerg Dept Use Only) 0.13 ng/mL (0.0-0.045)
--- NOTE | 2020-04-25 13:57 | RAD REPORT ---
EXAM DESCRIPTION: RAD - Chest Single View - 04/25/2020 1:42 pm CLINICAL HISTORY: CONGESTION COMPARISON: Portable September 2019 TECHNIQUE: AP portable chest image was obtained 04/25/2020 1:42 pm . FINDINGS: No focal mass or consolidation. Large body habitus accentuates the interstitial pattern po tentially masking mild interstitial edema or infiltrate. There is some vague airspace opacification t he lower right lung field. Heart and vasculature are normal. No measurable pleural effusion and no pn eumothorax. No acute bony abnormality seen. No acute aortic findings suspected. IMPRESSION: Questionable early right lower lung field pneumonia findings. Semi upright portable imaging is limited. If tolerable, the patient could undergo a standard two view examination. If warranted, CT imaging could be utilized for more definitive lung parenchymal assessm ent.
[2020-04-25] MEDS ORDERED: KETOROLAC 30 MG/ML INJ ONE (14:10)
[2020-04-25] MEDS ORDERED: NA CHLORIDE 0.9% 1,000 ML ONE ×2 (14:10→14:36)
[2020-04-25 14:29] LABS: SARS-COV-2 RT PCR POSITIVE (NEGATIVE)
[2020-04-25] MEDS ORDERED: AMOX/K CLAV 875 MG TAB ONE ×2 (14:36→23:32)
[2020-04-25] MEDS ORDERED: ENOXAPARIN 80 MG/0.8 ML SQ ONE (14:36)
[2020-04-25] MEDS ORDERED: ASPIRIN 81 MG CHEWABLE TABLET ONE (14:36)
--- NOTE | 2020-04-25 15:16 | EDPHYS ---
Physician Documentation [facility] Name: Aziza Rich Age: 65 yrs Sex: Female : 1955 Arrival Date: 04/25/2020 Time: 09:20 Bed 16 Private MD: ED Physician Miguel Romero HPI: 04/25 15:03 This 65 yrs old Black Female presents to ER via Wheelchair with complaints of ma2 Dizziness, Body Aches. 15:03 This 65 yrs old Black Female presents to ER via Wheelchair with complaints of ma2 Dizziness, Body Aches. 15:03 Onset: The symptoms/episode began/occurred gradually, 1 day(s) ago. Associated signs ma2 and symptoms: Pertinent positives: chest pain, Pertinent negatives: ataxia, diaphoresis, , seizure, syncope. Severity of symptoms: At their worst the symptoms were mild in the emergency department the symptoms are unchanged. The patient has experienced similar episodes in the past. no chest pain in er . Historical: - Allergies: 10:20 Keflex; iw - Home Meds: 10:27 Levemir 100 unit/mL subcutaneous soln 60 unit daily [Active]; metformin 500 mg Oral tab iw 1 tab 2 times per day [Active]; atorvastatin 80 mg oral tab 1 tab once daily [Active]; Jardiance 25 mg oral tab 1 tab once daily [Active]; amlodipine 10 mg tab 1 tab once daily [Active]; Plavix 75 mg Oral tab 1 tab once daily [Active]; metoprolol tartrate 100 mg Oral tab 1 tab 2 times per day [Active]; hydralazine 100 mg Oral tab 1 tab 3 times per day [Active]; paroxetine oral 7.5 mg oral once daily [Active]; spironolactone 25 mg Oral tab 1 tab once daily [Active]; hydrochlorothiazide 25 mg Oral tab 1 tab once daily [Active]; Trulicity 1.5 mg/0.5 mL subcutaneous pnij 0.5 mL once wkly [Active]; - PMHx: 10:20 Diabetes - IDDM; Hyperlipidemia; Hypertension; Multiple Sclerosis; Sleep Apnea; TIA iw 2013 \T\ 2014; - PSHx: 10:20 Foot sx; Hysterectomy; iw - Immunization history:: Adult Immunizations not up to date. - Social history:: Smoking status: Patient denies any tobacco usage or history of. Patient/guardian denies using alcohol, street drugs, The patient lives with family. - Family history:: not pertinent. ROS: 15:03 Constitutional: Negative for fever, chills, and weight loss. ma2 15:03 All other systems are negative. Exam: 15:03 Constitutional: This is a well developed, well nourished patient who is awake, alert, ma2 and in no acute distress. Neck: Trachea midline, no thyromegaly or masses palpated, and no cervical lymphadenopathy. Supple, full range of motion without nuchal rigidity, or vertebral point tenderness. No Meningismus. Chest/axilla: Normal chest wall appearance and motion. Nontender with no deformity. No lesions are appreciated. Cardiovascular: Regular rate and rhythm with a normal S1 and S2. No gallops, murmurs, or rubs. Normal PMI, no JVD. No pulse deficits. Respiratory: Lungs have equal breath sounds bilaterally, clear to auscultation and percussion. No rales, rhonchi or wheezes noted. No increased work of breathing, no retractions or nasal flaring. Abdomen/GI: Soft, non-tender, with normal bowel sounds. No distension or tympany. No guarding or rebound. No evidence of tenderness throughout. Skin: Warm, dry with normal turgor. Normal color with no rashes, no lesions, and no evidence of cellulitis. MS/ Extremity: Pulses equal, no cyanosis. Neurovascular intact. Full, normal range of motion. Neuro: Awake and alert, GCS 15, oriented to person, place, time, and situation. Cranial nerves II-XII grossly intact. Motor strength 5/5 in all extremities. Sensory grossly intact. Cerebellar exam normal. Normal gait. Vital Signs: 10:20 BP 107 / 54; Pulse 109; Resp 20 S; Temp 98.4; Pulse Ox 100% on R/A; Weight 89.81 kg; iw Height 5 ft. 3 in. (160.02 cm); Pain 8/10; 13:30 BP 146 / 61; Pulse 109; Resp 20; Pulse Ox 94% on R/A; zb 14:30 BP 142 / 64; Pulse 98; Resp 18; Pulse Ox 97% on R/A; zb 15:30 BP 153 / 65; Pulse 97; Resp 18; Pulse Ox 98% on R/A; zb 16:30 BP 177 / 60; Pulse 105; Resp 18; Pulse Ox 99% on R/A; zb 17:30 BP 170 / 74; Pulse 99; Resp 18; Pulse Ox 97% on R/A; zb 18:30 BP 157 / 60; Pulse 88; Resp 16; Pulse Ox 99% on R/A; zb 19:30 BP 127 / 77; Pulse 88; Resp 18; Pulse Ox 96% on R/A; zb 20:30 BP 131 / 73; Pulse 98; Resp 20; Pulse Ox 100% on R/A; zb 10:20 Body Mass Index 35.07 (89.81 kg, 160.02 cm) iw MDM: 15:03 Differential diagnosis: hypovolemia, near-syncope, covid pneumonia, nstemi, acs. Data ma2 reviewed: vital signs, nurses notes. Counseling: I had a detailed discussion with the patient and/or guardian regarding: the historical points, exam findings, and any diagnostic results supporting the discharge/admit diagnosis, the presence of at least one elevated blood pressure reading (>120/80) during this emergency department visit, the need for outpatient follow up. Response to treatment: the patient's symptoms have markedly improved after treatment. 15:16 Patient medically screened. ma2 17:21 ED course: discussed with dr. samuels and dr. hart . ma2 04/25 12:35 Order name: Strep; Complete Time: 14:00 ma2 04/25 12:35 Order name: Basic Metabolic Panel; Complete Time: 14:00 ct2 04/25 12:35 Order name: CBC with Diff; Complete Time: 14:00 ma2 04/25 12:35 Order name: LFT's; Complete Time: 14:00 ma2 04/25 12:35 Order name: Magnesium; Complete Time: 14:00 ma2 04/25 12:35 Order name: NT PRO-BNP; Complete Time: 14:00 ma2 04/25 12:35 Order name: PT-INR; Complete Time: 14:00 ma2 04/25 12:35 Order name: Troponin (emerg Dept Use Only); Complete Time: 14:00 ma2 04/25 14:31 Order name: COVID-19/FLU A+B; Complete Time: 14:38 EDMS 04/25 16:11 Order name: Troponin (emerg Dept Use Only); Complete Time: 17:19 ma2 04/25 17:35 Order name: Basic Metabolic Panel EDMS 04/25 17:35 Order name: Basic Metabolic Panel EDMS 04/25 12:35 Order name: CXR XRAY; Complete Time: 14:00 ma2 04/25 15:53 Order name: CT Chest For PE Angio; Complete Time: 17:19 ma2 04/25 17:35 Order name: NT PRO-BNP EDMS 04/25 17:35 Order name: NT PRO-BNP EDMS 04/25 17:35 Order name: Troponin I EDMS 04/25 17:36 Order name: CBC with Automated Diff EDMS 04/25 17:36 Order name: CBC with Automated Diff EDMS 04/25 17:36 Order name: Troponin I EDMS 04/25 17:36 Order name: Troponin I EDMS 04/26 00:06 Order name: Glucose, Ancillary Testing EDMS 04/26 07:30 Order name: LDL, Direct EDMS 04/26 08:19 Order name: Glucose, Ancillary Testing EDMS 04/26 09:40 Order name: Hemoglobin A1c EDMS 04/26 11:41 Order name: Glucose, Ancillary Testing EDMS 04/26 16:39 Order name: Glucose, Ancillary Testing EDMS 04/25 12:35 Order name: Droplet/Contact Precautions; Complete Time: 12:38 ma2 04/25 12:35 Order name: Labs collected and sent; Complete Time: 13:04 ma2 04/25 12:35 Order name: O2 Per Protocol; Complete Time: 13:04 ma2 04/25 12:35 Order name: EKG; Complete Time: 12:44 ma2 04/25 12:35 Order name: Cardiac monitoring; Complete Time: 13:04 ma2 04/25 12:35 Order name: EKG - Nurse/Tech; Complete Time: 13:04 ma2 04/25 12:35 Order name: IV Saline Lock; Complete Time: 13:04 ma2 04/25 12:35 Order name: O2 Sat Monitoring; Complete Time: 13:04 ma2 04/25 17:36 Order name: Regular EDMS 04/25 17:36 Order name: EKG Electrocardiogram EDMS 04/25 17:36 Order name: EKG Electrocardiogram EDMS 04/25 17:36 Order name: EKG Electrocardiogram EDMS 04/25 17:36 Order name: EKG Electrocardiogram EDMS 04/25 17:36 Order name: EKG Electrocardiogram EDMS Administered Medications: 14:28 Drug: Augmentin 875 mg Route: PO; zb 16:00 Follow up: Response: No adverse reaction zb 14:28 Drug: NS 0.9% 1000 ml Route: IV; Rate: 1 bolus; Site: right antecubital; zb 16:00 Follow up: Response: No adverse reaction; IV Status: Completed infusion; IV Intake: zb 1000ml 14:29 Drug: NS 0.9% 1000 ml Route: IV; Rate: 1 bolus; Site: right antecubital; zb 16:00 Follow up: Response: No adverse reaction; IV Status: Completed infusion; IV Intake: zb 1000ml 14:29 Drug: TORadol 30 mg Route: IVP; Site: right antecubital; zb 16:01 Follow up: Response: No adverse reaction zb 14:29 Drug: Aspirin Chewable Tablet 324 mg Route: PO; zb 16:01 Follow up: Response: No adverse reaction zb 14:29 Drug: Lovenox 80 mg Route: Sub-Q; Site: right lower abdomen; zb 16:01 Follow up: Response: No adverse reaction zb 15:59 Drug: MethylPrednisoLONE 125 mg Route: IVP; Site: right antecubital; zb 16:27 Follow up: Response: No adverse reaction zb 16:00 Drug: Zofran (Ondansetron) 4 mg Route: IVP; Site: right antecubital; zb 16:26 Follow up: Response: No adverse reaction; Nausea is decreased zb Disposition: 04/25/20 17:24 Hospitalization ordered by Tin Hart for Inpatient Admission. Preliminary diagnosis are Non-ST elevation (NSTEMI) myocardial infarction, Coronavirus infection, unspecified, Streptococcus, group A, as the cause of diseases classified elsewhere, Pneumonia due to other specified infectious organisms. - Bed requested for [facility] ER HOLD. - Status is Inpatient Admission. sv - Condition is Stable. - Problem is new. - Symptoms are unchanged. Signatures: Dispatcher [employer] EDMS Rhianna Charles RN RN sv Woody, Diana, RN RN dw Williams, Irene, RN RN Jolie Romeroammad, MD MD ct2 Zaria Valdovinos RN RN zb Corrections: (The following items were deleted from the chart) 13:43 12:43 Influenza Screen (A \T\ B)+BA.LAB.BRZ ordered. EDMT EDMS 13:43 12:43 CORONAVIRUS+MR.LAB.BRZ ordered. [facility] EDMS 16:39 15:16 Hospitalization Ordered by Aaron Sierra MD for Inpatient Admission. Preliminary ct2 diagnosis is Coronavirus infection, unspecified; Non-ST elevation (NSTEMI) myocardial infarction; Streptococcus, group A, as the cause of diseases classified elsewhere. Bed requested for Telemetry/MedSurg (Inpatient). Status is Inpatient Admission. Condition is Stable. Problem is new. Symptoms are unchanged. [facility] 20:50 17:24 Hospitalization Ordered by Tin Hart MD for Inpatient Admission. Preliminary diagnosis is Non-ST elevation (NSTEMI) myocardial infarction; Coronavirus infection, unspecified; Streptococcus, group A, as the cause of diseases classified elsewhere; Pneumonia due to other specified infectious organisms. Bed requested for Telemetry/MedSurg (Inpatient). Status is Inpatient Admission. Condition is Stable. Problem is new. Symptoms are unchanged. [facility] 04/26 18:57 04/25 20:50 04/25/2020 17:24 Hospitalization Ordered by Tin Hart MD for Inpatient sv Admission. Preliminary diagnosis is Non-ST elevation (NSTEMI) myocardial infarction; Coronavirus infection, unspecified; Streptococcus, group A, as the cause of diseases classified elsewhere; Pneumonia due to other specified infectious organisms. Bed requested for [facility] ER HOLD. Status is Inpatient Admission. Condition is Stable. Problem is new. Symptoms are unchanged. dw
--- NOTE | 2020-04-25 15:16 | ER ---
Nurse's Notes [facility] Name: Aziza Rich Age: 65 yrs Sex: Female : 1955 Arrival Date: 04/25/2020 Time: 09:20 Bed 16 Private MD: Diagnosis: Non-ST elevation (NSTEMI) myocardial infarction;Coronavirus infection, unspecified;Streptococcus, group A, as the cause of diseases classified elsewhere;Pneumonia due to other specified infectious organisms Presentation: 04/25 10:18 Chief complaint: Patient states: dizzy, light headed, nausea, feels cold, feels weak, iw started this morning. Coronavirus screen: chills, fatigue, nausea, Client presents with at least one sign or symptom that may indicate coronavirus-19. Standard/surgical mask placed on the client. Provider contacted for isolation considerations. Ebola Screen: Patient negative for fever greater than or equal to 101.5 degrees Fahrenheit, and additional compatible Ebola Virus Disease symptoms Patient denies exposure to infectious person. Patient denies travel to an Ebola-affected area in the 21 days before illness onset. No symptoms or risks identified at this time. Initial Sepsis Screen: Does the patient meet any 2 criteria? No. Patient's initial sepsis screen is negative. Does the patient have a suspected source of infection? No. Patient's initial sepsis screen is negative. Risk Assessment: Do you want to hurt yourself or someone else? Patient reports no desire to harm self or others. Onset of symptoms was April 25, 2020. 10:18 Method Of Arrival: Wheelchair iw 10:18 Acuity: CHRISTY 3 iw Historical: - Allergies: 10:20 Keflex; iw - Home Meds: 10:27 Levemir 100 unit/mL subcutaneous soln 60 unit daily [Active]; metformin 500 mg Oral tab iw 1 tab 2 times per day [Active]; atorvastatin 80 mg oral tab 1 tab once daily [Active]; Jardiance 25 mg oral tab 1 tab once daily [Active]; amlodipine 10 mg tab 1 tab once daily [Active]; Plavix 75 mg Oral tab 1 tab once daily [Active]; metoprolol tartrate 100 mg Oral tab 1 tab 2 times per day [Active]; hydralazine 100 mg Oral tab 1 tab 3 times per day [Active]; paroxetine oral 7.5 mg oral once daily [Active]; spironolactone 25 mg Oral tab 1 tab once daily [Active]; hydrochlorothiazide 25 mg Oral tab 1 tab once daily [Active]; Trulicity 1.5 mg/0.5 mL subcutaneous pnij 0.5 mL once wkly [Active]; - PMHx: 10:20 Diabetes - IDDM; Hyperlipidemia; Hypertension; Multiple Sclerosis; Sleep Apnea; TIA iw 2013 \T\ 2014; - PSHx: 10:20 Foot sx; Hysterectomy; iw - Immunization history:: Adult Immunizations not up to date. - Social history:: Smoking status: Patient denies any tobacco usage or history of. Patient/guardian denies using alcohol, street drugs, The patient lives with family. - Family history:: not pertinent. Screenin:30 Abuse screen: Denies threats or abuse. Denies injuries from another. Nutritional zb screening: No deficits noted. Tuberculosis screening: No symptoms or risk factors identified. Fall Risk No fall in past 12 months (0 pts). No secondary diagnosis (0 pts). IV access (20 points). Ambulatory Aid- None/Bed Rest/Nurse Assist (0 pts). Gait- Normal/Bed Rest/Wheelchair (0 pts) Mental Status- Oriented to own ability (0 pts). Total Garcia Fall Scale indicates No Risk (0-24 pts). Assessment: 13:30 General: Appears in no apparent distress. uncomfortable, Behavior is calm, cooperative, zb appropriate for age. Pain: Complains of pain in generalized bodyaches Pain does not radiate. Quality of pain is described as aching, Pain began today. Neuro: Level of Consciousness is awake, alert, obeys commands, Oriented to person, place, time, situation. Cardiovascular: Capillary refill < 3 seconds in bilateral fingers Patient's skin is warm and dry. Respiratory: Airway is patent Respiratory effort is even, unlabored, Respiratory pattern is regular, symmetrical, Breath sounds are clear bilaterally. GI: No signs and/or symptoms were reported involving the gastrointestinal system. : No signs and/or symptoms were reported regarding the genitourinary system. EENT: Throat is reddened has enlarged tonsils on right with gag reflex present. Derm: Skin is intact, is healthy with good turgor, Skin is dry, Skin is normal, Skin temperature is warm. Musculoskeletal: Circulation, motion, and sensation intact. Capillary refill < 3 seconds, in bilateral fingers. Range of motion: intact in all extremities. 14:30 Reassessment: Patient appears in no apparent distress at this time. Patient and/or zb family updated on plan of care and expected duration. Pain level reassessed. Patient is alert, oriented x 3, equal unlabored respirations, skin warm/dry/pink. pt remains cold, no changes at this time. 15:30 Reassessment: Patient appears in no apparent distress at this time. Patient and/or zb family updated on plan of care and expected duration. Pain level reassessed. Patient is alert, oriented x 3, equal unlabored respirations, skin warm/dry/pink. IV fluids infusing. pt resting in bed. provider has spoken to patient. 15:50 Reassessment: pt states she feels naused/ notified ECP. given medication. zb 16:06 Reassessment: hospitalist at bedside. zb 17:00 Reassessment: Patient appears in no apparent distress at this time. Patient and/or zb family updated on plan of care and expected duration. Pain level reassessed. Patient is alert, oriented x 3, equal unlabored respirations, skin warm/dry/pink. pt ambulates to restroom as needed. no changes in care at this moment. 18:00 Reassessment: Patient appears in no apparent distress at this time. Patient and/or zb family updated on plan of care and expected duration. Pain level reassessed. Patient is alert, oriented x 3, equal unlabored respirations, skin warm/dry/pink. ECP at bedside explaining POC. 19:00 Reassessment: Patient appears in no apparent distress at this time. Patient and/or zb family updated on plan of care and expected duration. Pain level reassessed. Patient is alert, oriented x 3, equal unlabored respirations, skin warm/dry/pink. pt eating in room. up ad kaleigh no changes at this time. 20:00 Reassessment: Patient appears in no apparent distress at this time. Patient and/or zb family updated on plan of care and expected duration. Pain level reassessed. Patient is alert, oriented x 3, equal unlabored respirations, skin warm/dry/pink. pt resting in bed at this time. no change. patient given ice water. 21:00 Reassessment: Patient appears in no apparent distress at this time. Patient and/or zb family updated on plan of care and expected duration. Pain level reassessed. no changes at this time. report given BENNY erazo. Vital Signs: 10:20 BP 107 / 54; Pulse 109; Resp 20 S; Temp 98.4; Pulse Ox 100% on R/A; Weight 89.81 kg; iw Height 5 ft. 3 in. (160.02 cm); Pain 8/10; 13:30 BP 146 / 61; Pulse 109; Resp 20; Pulse Ox 94% on R/A; zb 14:30 BP 142 / 64; Pulse 98; Resp 18; Pulse Ox 97% on R/A; zb 15:30 BP 153 / 65; Pulse 97; Resp 18; Pulse Ox 98% on R/A; zb 16:30 BP 177 / 60; Pulse 105; Resp 18; Pulse Ox 99% on R/A; zb 17:30 BP 170 / 74; Pulse 99; Resp 18; Pulse Ox 97% on R/A; zb 18:30 BP 157 / 60; Pulse 88; Resp 16; Pulse Ox 99% on R/A; zb 19:30 BP 127 / 77; Pulse 88; Resp 18; Pulse Ox 96% on R/A; zb 20:30 BP 131 / 73; Pulse 98; Resp 20; Pulse Ox 100% on R/A; zb 10:20 Body Mass Index 35.07 (89.81 kg, 160.02 cm) iw ED Course: 09:20 Patient arrived in ED. ds1 10:20 Triage completed. iw 10:21 Arm band placed on. iw 12:30 Miguel Romero MD is Attending Physician. ma2 12:37 Zaria Valdovinos RN is Primary Nurse. zb 12:45 Inserted saline lock: 20 gauge in right antecubital area, using aseptic technique. zb Blood collected. 13:42 CXR XRAY In Process Unspecified. EDMS 14:30 Patient has correct armband on for positive identification. assessment nurse on. Pulse zb ox on. NIBP on. Door closed. Noise minimized. Warm blanket given. 15:16 Aaron Sierra MD is Hospitalizing Provider. ma2 16:44 CT Chest For PE Angio In Process Unspecified. EDMS 17:24 Tin Hart MD is Hospitalizing Provider. ma2 Administered Medications: 14:28 Drug: Augmentin 875 mg Route: PO; zb 16:00 Follow up: Response: No adverse reaction zb 14:28 Drug: NS 0.9% 1000 ml Route: IV; Rate: 1 bolus; Site: right antecubital; zb 16:00 Follow up: Response: No adverse reaction; IV Status: Completed infusion; IV Intake: zb 1000ml 14:29 Drug: NS 0.9% 1000 ml Route: IV; Rate: 1 bolus; Site: right antecubital; zb 16:00 Follow up: Response: No adverse reaction; IV Status: Completed infusion; IV Intake: zb 1000ml 14:29 Drug: TORadol 30 mg Route: IVP; Site: right antecubital; zb 16:01 Follow up: Response: No adverse reaction zb 14:29 Drug: Aspirin Chewable Tablet 324 mg Route: PO; zb 16:01 Follow up: Response: No adverse reaction zb 14:29 Drug: Lovenox 80 mg Route: Sub-Q; Site: right lower abdomen; zb 16:01 Follow up: Response: No adverse reaction zb 15:59 Drug: MethylPrednisoLONE 125 mg Route: IVP; Site: right antecubital; zb 16:27 Follow up: Response: No adverse reaction zb 16:00 Drug: Zofran (Ondansetron) 4 mg Route: IVP; Site: right antecubital; zb 16:26 Follow up: Response: No adverse reaction; Nausea is decreased zb Intake: 16:00 IV: 1000ml; Total: 1000ml. zb 16:00 IV: 1000ml; Total: 2000ml. zb Outcome: 15:16 Decision to Hospitalize by Provider. ma2 17:24 Decision to Hospitalize by Provider. ma2 02 18:57 Patient left the ED. sv Signatures: Dispatcher [employer] EDMS Rhianna Charles RN RN sv Sanford, Demi ds1 Carlene Fry RN RN iw Alzahri, Mohammad, MD MD ma2 Zaria Valdovinos RN RN zb Corrections: (The following items were deleted from the chart) 04/25 21:29 21:00 Reassessment: Patient appears in no apparent distress at this time. Patient zb and/or family updated on plan of care and expected duration. Pain level reassessed. no changes at this time. report given. zb
[2020-04-25] MEDS ORDERED: ONDANSETRON 4 MG/2 ML VIAL ONE (16:10)
[2020-04-25] MEDS ORDERED: METHYLPREDNISOLONE 125 MG INJ ONE (16:10)
--- NOTE | 2020-04-25 17:09 | RAD REPORT ---
EXAM DESCRIPTION: CT - Chest For Pe Angio - 04/25/2020 4:44 pm CLINICAL HISTORY: CHEST PAIN COMPARISON: Chest Single View dated 04/25/2020 TECHNIQUE: Dynamically enhanced 3 mm thick images of the chest were obtained during administration o f approximately 150mL Isovue 370 IV contrast. Coronal and oblique MIP reconstruction images were gene rated and reviewed. Exam utilizes a protocol to evaluate the pulmonary arterial tree. All CT scans are performed using dose optimization technique as appropriate and may include automated exposure control or mA/KV adjustment according to patient size. FINDINGS: No pulmonary emboli are identified. The aorta as imaged shows no acute or suspicious finding. No pericardial thickening or effusion. No mass or dense consolidation identified. Patient has several areas of ground-glass opacification sc attered in the lung parenchyma. No pleural effusion or pleural thickening. Lung parenchymal pattern i s nonspecific. Pattern has been described in COVID-19 pneumonia patients. Non COVID viral pneumonia i s possible. Scattered alveolar edema or atelectasis possible as well. Pattern is not the typical foca l bacterial pneumonia pattern. No mediastinal or hilar suspicious masses. No chest wall masses or abnormal axillary lymphadenopathy. Patient has pericardial effusion up to 14 mm in thickness. Left ventricular myocardium also appears t hickened. CT sensitivity is limited. IMPRESSION: No pulmonary emboli identified. Scattered alveolar opacities throughout the lung flaherty. Pattern is nonspecific but can be seen in [place] VID-19 pneumonia patients. Pattern is common in non COVID viral pneumonia with atelectasis or edema l tamica likelihood. Pattern is not typical for bacterial pneumonia. Pericardial effusion up to 14 mm in thickness with suspected left ventricular myocardium hypertrophy.
[2020-04-25] MEDS ORDERED: ONDANSETRON 4 MG/2 ML VIAL IV PRN (17:29)
[2020-04-25] MEDS ORDERED: ALBUTEROL 2.5 MG/3 ML NEB SOL NEB PRN (17:29)
[2020-04-25] MEDS ORDERED: IPRATROPIUM BROM 0.5MG/2.5ML NEB PRN (17:29)
[2020-04-25] MEDS ORDERED: ENOXAPARIN 80 MG/0.8 ML SQ SCH (18:00)
[2020-04-25] MEDS ORDERED: AMOX/K CLAV 875 MG TAB PO SCH (21:00)
[2020-04-25] MEDS: AZITHROMYCIN IV 500 MG in NA CHLORIDE 0.9% 250 ML IVPB SCH (23:21)
[2020-04-26] MEDS ORDERED: GLUCAGON 1 MG/VIAL IM PRN (00:05)
[2020-04-26] MEDS ORDERED: D50W 25 GM/50 ML SYRINGE IV PRN (00:05)
[2020-04-26] MEDS: INSULIN -REGULAR HUMAN 50 UNIT/0.5 ML ML SQ SCH ×4 (00:27→16:57)
[2020-04-26] MEDS ORDERED: INSULIN -REGULAR HUMAN 50 UNIT/0.5 ML ML ONE ×4 (00:31→17:01)
[2020-04-26 00:57] VITALS: BMI 35.6
[2020-04-26] MEDS ORDERED: METHYLPRED NA SUC 60 MG in NA CHLORIDE 0.9% 100 ML IV SCH (01:00)
[2020-04-26] MEDS ORDERED: IVERMECTIN 3 MG TABLET PO ONE (06:21)
[2020-04-26] MEDS ORDERED: HOME MED 1 EA UNK (Dulaglutide [Trulicity] 1.5 MG/0.5 ML Pen.Injctr) SQ SCH (06:30)
[2020-04-26 06:58] LABS: Absolute Lymphocytes (CBC) 1.3 K/uL (0.7-4.9); Basophils % 0.3 % (0-1.3); Hematocrit 40.4 % (36.0-45.0); Lymphocytes % 45.3 % (15.3-44.8); MPV 8.7 fL (7.6-11.3); RBC Red Blood Cell Count 4.92 M/uL (3.86-4.86)
[2020-04-26 07:18] LABS: Potassium 3.2 mmol/L (3.5-5.1)
[2020-04-26] MEDS ORDERED: POTASSIUM CL SA 10 MEQ TAB PO ONE ×2 (08:23→08:51)
--- NOTE | 2020-04-26 08:33 | P.CNS ---
Date of Consult: 04/26/20 Reason for Consult: Khan virus infection Chief Complaint: Possible khan virus pneumonia History of Present Illness: Patient is 65 years of age presented to the emergency room with dizziness and bodyaches in minimal shortness of breath as diagnosed with khan virus she feels fine oxygenation is satisfactory troponins are mildly elevated patient denies any history of chest pain never had any coronary artery disease denies any history of chest pain on exertion Allergies cephalexin monohydrate [From Keflex] Allergy (Verified 02/14/20 11:40) Rash Home Medications: Amlodipine [Norvasc*] 10 mg PO DAILY 04/26/20 Atorvastatin Calcium [Lipitor] 80 mg PO BEDTIME 04/26/20 Clopidogrel Bisulfate [Plavix*] 75 mg PO DAILY 04/26/20 Dulaglutide [Trulicity] 1.5 mg SQ Q7D 04/26/20 Empagliflozin [Jardiance] 25 mg PO DAILY 04/26/20 Hydralazine [Apresoline*] 100 mg PO TID 04/26/20 Insulin Detemir [Levemir] 60 units SQ DAILY 04/26/20 Metformin HCl 500 mg PO BID 04/26/20 Metoprolol Tartrate 100 mg PO BID 04/26/20 PARoxetine HCl [Paxil] 7.5 mg PO BEDTIME 04/26/20 hydroCHLOROthiazide [Hydrochlorothiazide*] 25 mg PO DAILY 04/26/20 - Past Medical/Surgical History Diabetic: Yes -: Diabetis IDDM -: HTN -: High Cholesterol -: Multiple sclerosis -: Sleep apnea -: TIA x2 (2015, 2017) -: Irritable Bowel Syndrome -: Foot Surgery -: Hysterectomy -: Cataract Sx - Family History Mother Medical History: Hypertension, Diabetes - Social History Smoking Status: Unknown if ever smoked Alcohol use: Yes CD- Drugs: No Caffeine use: No Place of Residence: Home Review of Systems 10-point ROS is otherwise unremarkable General: Weakness Respiratory: Cough, Shortness of Breath Physical Examination Temp Pulse Resp BP Pulse Ox 97.9 F 80 16 160/73 H 98 04/26/20 04:00 04/26/20 04:00 04/26/20 04:00 04/26/20 04:00 04/26/20 04:00 General: Alert HEENT: Atraumatic Neck: Supple Respiratory: Clear to auscultation bilaterally Laboratory Data (last 24 hrs) 04/25/20 12:55: PT 11.3, INR 0.96 04/25/20 12:55: WBC 5.30, Hgb 15.2 H, Hct 45.2 H, Plt Count 254 04/25/20 12:55: Sodium 141, Potassium 3.1 L, BUN 21 H, Creatinine 1.14, Glucose 131 H, Magnesium 2.2, Total Bilirubin 0.8, AST 33, ALT 19, Alkaline Phosphatase 87 - Problems (1) Coronavirus infection Current Visit: Yes Status: Acute Plan: Patient is 65 years of age admitted with weakness dizziness diagnosed with khan virus minimal changes on the x-ray patient's oxygenation is satisfactory troponin is mildly elevated no prior history of coronary artery disease denies any recent history of chest pain at rest or id exertion in the past few weeks white count is slightly low final signs stable room-air saturation satisfactory I agree patient does not need steroids can probably get some ivermectin cardiac evaluation pending probably troponins elevated due to the khan virus infection patient will need an outpatient stress test
[2020-04-26] MEDS: HYDRALAZINE HCL 25 MG TABLET PO SCH ×2 (08:42→15:15)
[2020-04-26] MEDS: AZITHROMYCIN IV 500 MG in NA CHLORIDE 0.9% 250 ML IVPB SCH (08:48)
[2020-04-26] MEDS ORDERED: ASPIRIN 81 MG CHEWABLE TABLET ONE (08:49)
[2020-04-26] MEDS ORDERED: INSULIN GLARGINE 100 UNITS/ML SQ ONE (08:49)
[2020-04-26] MEDS ORDERED: METOPROLOL TAR 50 MG TAB ONE (08:49)
[2020-04-26] MEDS ORDERED: CLOPIDOGREL 75 MG TABLET ONE (08:49)
[2020-04-26] MEDS ORDERED: AMLODIPINE 10 MG TAB ONE (08:50)
[2020-04-26] MEDS ORDERED: hydroCHLOROthiazide 25 MG TAB ONE (08:50)
[2020-04-26] MEDS ORDERED: METFORMIN HCL 500 MG TAB ONE (08:50)
[2020-04-26] MEDS ORDERED: ENOXAPARIN 80 MG/0.8 ML SQ ONE (08:51)
[2020-04-26] MEDS ORDERED: AMLODIPINE 10 MG TAB PO SCH (09:00)
[2020-04-26] MEDS ORDERED: INSULIN GLARGINE 100 UNITS/ML SQ SCH (09:00)
[2020-04-26] MEDS ORDERED: CLOPIDOGREL 75 MG TABLET PO SCH (09:00)
[2020-04-26] MEDS ORDERED: ENOXAPARIN 80 MG/0.8 ML SQ SCH (09:00)
[2020-04-26] MEDS ORDERED: METFORMIN HCL 500 MG TAB PO SCH (09:00)
[2020-04-26] MEDS ORDERED: METOPROLOL TAR 50 MG TAB PO SCH (09:00)
[2020-04-26] MEDS ORDERED: ASPIRIN EC 81 MG TAB PO SCH (09:00)
[2020-04-26] MEDS ORDERED: hydroCHLOROthiazide 25 MG TAB PO SCH (09:00)
[2020-04-26] MEDS ORDERED: hydroCHLOROthiazide 12.5 MG CAP PO SCH (09:00)
[2020-04-26 10:44] VITALS: O2SAT 99
--- NOTE | 2020-04-26 12:16 | EKG ---
Test Date: 2020-04-26 Test Time: 07:59:05 [place] [employer]oom: CAROLINE MEASUREMENT RESULTS: Intervals: Rate: 69 PA: 154 QRSD: 76 QT: 450 QTc: 482 [place]: P: 56 PA: 154 QRS: 63 T: 123 INTERPRETIVE STATEMENTS: Normal sinus rhythm T wave abnormality, consider lateral ischemia Prolonged QT Abnormal ECG Compared to ECG 04/25/2020 13:01:01 Possible ischemia now present Prolonged QT interval now present Sinus tachycardia no longer present T-wave abnormality still present Electronically Signed On 04-26-20 12:15:07 ELEMENTARY SCHOOL TEACHER by Mario Yang
--- NOTE | 2020-04-26 12:19 | EKG ---
Test Date: 2020-04-25 Test Time: 13:00:29 Facilities Clerk: DEBORAH MEASUREMENT RESULTS: Intervals: Rate: 104 OK: 146 QRSD: 66 QT: 360 QTc: 473 [place]: P: 52 OK: 146 QRS: 45 T: 83 INTERPRETIVE STATEMENTS: Sinus tachycardia Nonspecific T wave abnormality Abnormal ECG Compared to ECG 09/24/2019 01:29:51 T-wave abnormality now present Sinus rhythm no longer present Left ventricular hypertrophy no longer present Early repolarization no longer present Electronically Signed On 04-26-20 12:15:33 POLYMER CHEMIST by Mario Yang
--- NOTE | 2020-04-26 12:19 | EKG ---
Test Date: 2020-04-25 Test Time: 13:01:01 [employer]ing Mill Operator: DEBORAH MEASUREMENT RESULTS: Intervals: Rate: 106 HI: 124 QRSD: 66 QT: 360 QTc: 478 [place]: P: 45 HI: 124 QRS: 50 T: 86 INTERPRETIVE STATEMENTS: Sinus tachycardia Nonspecific T wave abnormality Abnormal ECG Compared to ECG 04/25/2020 13:00:29 No significant changes Electronically Signed On 04-26-20 12:15:32 ORGANIC PREPARATION ANALYST by Mario Yang
--- NOTE | 2020-04-26 12:56 | ECHO ---
HEIGHT: 5 ft 2 in WEIGHT: 195 lb 0 oz DATE OF STUDY: 04/26/[address]: Mario Yang MD 2-DIMENSIONAL: YES M.MODE: YES DOPPLER: YES COLOR FLOW: YES TDS: PORTABLE: DEFINITY: BUBBLE STUDY: DIAGNOSIS: POS TROPONIN CARDIAC HISTORY: CATHERIZATION: SURGERY: PROSTHETIC VALVE: PACEMAKER: MEASUREMENTS (cm) DIASTOLIC (NORMALS) SYSTOLIC (NORMALS) IVSd 1.5 (0.6-1.2) LA Diam 3.5 (1.9-4.0) LVEF 88% LVIDd 3.7 (3.5-5.7) LVIDs 1.6 (2.0-3.5) %FS 58% LVPWd 1.6 (0.6-1.2) Ao Diam 2.5 (2.0-3.7) 2 DIMENSIONAL ASSESSMENT: RIGHT ATRIUM: NORMAL LEFT ATRIUM: NORMAL RIGHT VENTRICLE: NORMAL LEFT VENTRICLE: LEFT VENTRICULAR HYPERTROPHY TRICUSPID VALVE: NORMAL MITRAL VALVE: NORMAL PULMONIC VALVE: NORMAL AORTIC VALVE: NORMAL PERICARDIAL EFFUSION: NONE AORTIC ROOT: NORMAL LEFT VENTRICULAR WALL MOTION: NORMAL DOPPLER/COLOR FLOW: NORMAL COMMENTS: SEVERE CONCENTRIC LEFT VENTRICULAR HYPERTROPHY. NO WALL MOTION ABNORMALITY. NORMAL EJECTION FRACTION. TECHNOLOGIST: ROGERS JACOBS
[2020-04-26] MEDS ORDERED: D50W 25 GM/50 ML VIAL IV PRN (14:54)
[2020-04-26 17:00] VITALS: BP 130/51; TEMP 98.2
--- NOTE | 2020-04-26 20:34 | P.SSS ---
Patient History Date of Service: 04/26/20 Reason for admission: Possible franks virus pneumonia History of Present Illness: [place]. [place] IS A DIABETIC WITH HTN AND CVA IN PAST COMES WITH CHEST PAIN. SHE WAS DIAGNOSED WITH COVID INFECTION YESTERDAY. SHE HAS L SIDE PLEURITIC CHEST PAIN. Allergies cephalexin monohydrate [From Keflex] Allergy (Verified 02/14/20 11:40) Rash Home Medications: Amlodipine [Norvasc*] 10 mg PO DAILY 04/26/20 Atorvastatin Calcium [Lipitor] 80 mg PO BEDTIME 04/26/20 Clopidogrel Bisulfate [Plavix*] 75 mg PO DAILY 04/26/20 Dulaglutide [Trulicity] 1.5 mg SQ Q7D 04/26/20 Empagliflozin [Jardiance] 25 mg PO DAILY 04/26/20 Hydralazine [Apresoline*] 100 mg PO TID 04/26/20 Insulin Detemir [Levemir] 60 units SQ DAILY 04/26/20 Ivermectin 18 mg PO DAILY #0 tablet 04/26/20 Metformin HCl 500 mg PO BID 04/26/20 Metoprolol Tartrate 100 mg PO BID 04/26/20 PARoxetine HCl [Paxil] 7.5 mg PO BEDTIME 04/26/20 hydroCHLOROthiazide [Hydrochlorothiazide*] 25 mg PO DAILY 04/26/20 - Past Medical/Surgical History Diabetic: Yes -: Diabetis IDDM -: HTN -: High Cholesterol -: Multiple sclerosis -: Sleep apnea -: TIA x2 (2015, 2017) -: Irritable Bowel Syndrome -: Foot Surgery -: Hysterectomy -: Cataract Sx - Family History Mother -: Hypertension, Diabetes - Social History Smoking Status: Never smoker Alcohol use: Yes CD- Drugs: No Caffeine use: No Place of Residence: Home Review of Systems 10-point ROS is otherwise unremarkable General: Weakness Physical Examination - Vital Signs Temperature: 98.2 F Blood Pressure: 130/51 Pulse: 80 Respirations: 19 Pulse Ox (%): 98 - Physical Exam General: Alert, Mild distress, Obese HEENT: Atraumatic, PERRLA, Mucous membr. moist/pink, EOMI, Sclerae nonicteric Neck: JVD not distended Respiratory: Clear to auscultation bilaterally, Normal air movement Cardiovascular: Regular rate/rhythm Gastrointestinal: Normal bowel sounds, No tenderness Musculoskeletal: No tenderness Integumentary: No rashes Neurological: Normal gait, Normal speech, Normal strength at 5/5 x4 extr, Normal tone, Normal affect Lymphatics: No axilla or inguinal lymphadenopathy - Diagnosis (Problem(s)) (1) Atypical chest pain Current Visit: Yes Status: Acute Plan: SHE HAD MILD ELEVATION OF TROPONIN [address] ANGELES THIS CAN HAPPEN WITH ANY PULMONARY INFECTION. I AGREE. SHE HAS HAD NORMAL CARDIAC CATH PER HIM A 6 MTHS AGO. SHE IS STABLE TO GO HOME. (2) Coronavirus infection Current Visit: Yes Status: Acute Plan: SHE IS GIVEN ONE DOSE OF IVERMECTINE AND WILL HAVE ONE MORE IN A DAY. I WILL AVOID STEROIDS SHEIS A DIABETIC AND AT THIS POINT HER OXYGENATION IS GOOD. - Disposition Disposition: ROUTINE DISCHARGE Condition: FAIR
[2020-04-26] MEDS ORDERED: PAROXETINE PO SCH (21:00)
[2020-04-26] MEDS ORDERED: ATORVASTATIN 80 MG TAB PO SCH (21:00)
[2020-04-27] MEDS ORDERED: IVERMECTIN 3 MG TABLET PO SCH (09:00)
--- NOTE | 2020-04-29 21:40 | CON ---
Date of Consultation: 04/26/2020 Reason For Consultation: Elevated troponin. History Of Present Illness: Ms. Rich is a 65-year-old woman. I was asked to give my opinion reg arding her troponin. She came in with COVID infection. She has a history of diabetes, hypertension, dyslipidemia, TIA, and apnea. She just recently had a heart catheterization within the last 2 month s showing very minimal coronary artery disease and I think her troponin level is secondary to demand ischemia. She has hypokalemia that needs to be corrected. Her diabetes is very poorly controlled. She takes Norvasc Levemir, Lipitor, hydralazine, metformin, Plavix, metoprolol, Jardiance, Trulicity, and hydrochlorothiazide. I am comfortable with Ms. Rich going home. Her troponin elevation is not concerning considering her COVID infection and her recent heart catheterization results. I would be happy to see Ms. Rich in the office in the next 2 to 4 weeks. No change in medical therapy f rom our perspective and certainly no need for any further cardiac workup at this point. ESTELA/TONIE Voice ID: [id number] Report ID: [id number]
== END 2020-04-26 18:57 | disposition home health service (06) ==
LOC: ER 09:07 → INTOOBSV 18:22 → ERHOLD 18:22
PROVIDERS: ADMIT Internal Medicine; ATTEND Internal Medicine
DX: U07.1 COVID-19 (principal); R07.81 Pleurodynia; E11.65 Type 2 diabetes mellitus with hyperglycemia; I10 Essential (primary) hypertension; Z79.4 Long term (current) use of insulin; E78.00 Pure hypercholesterolemia, unspecified; G35 Multiple sclerosis; G47.30 Sleep apnea, unspecified; Z86.73 Personal history of transient ischemic attack (TIA), and cerebral infarction without residual deficits; E66.9 Obesity, unspecified; Z68.35 Body mass index [BMI] 35.0-35.9, adult; R94.31 Abnormal electrocardiogram [ECG] [EKG]
CPT/HCPCS: 96361; 93005 ×3; 93306; 85025 ×2; 80048 ×2; 36415; 83721; 83735; 85610; 82947 ×4; 80076; 87081; 83036; 84484 ×4; 83880 ×2; 0240U; 71275; 71045; 94760 ×3; 96375; 96372; 96374; 99284; Q9967; J0456; J7050; J7030 ×2; J2930; J2405; J2920; G0378; J1815

== ENCOUNTER 2020-07-13 14:26 | Observation (INO) | payer BC ==
--- OUTSIDE RECORDS SUMMARY | 2020-07-13 14:29 | XMS REPORT | Continuity of Care Document ---
:1955 Author Organization [facility] t Address [address] [place] [address] Care Team Providers Name Role Phone Patrick Painting DO Attending Clinician Lizette FRAGA L Attending Clinician Darin Ragland Attending Clinician Krista Caraballo Attending Clinician DENYS GENTILE Attending Clinician Unavail able DENYS GENTILE Admitting Clinician Unavail able Problems Condition Condition Condition Status Onset Resolution Last Treating Co mments Source Name Details Category Date Date Treatment Clinician Date Z03.23 - Diagnosis Active 2017-11-12 M emoria ENCNTR 08-12 11:27:00 l SCREEN Z12.31 - 00:01: Feliciano montgomery MAMMOGRAM ENCNTR 00 FOR MA SCREEN MAMMOGRAM FOR MA Active 08/12/2017 [facility] Essential Essential Disease Active [facility] hypertensi hypertensi 11-24 [facility] - on on 00:00: Medical 00 Center Mixed Mixed Disease Active [facility] hyperlipid hyperlipid 11-24 [facility] - emia emia 00:00: Medical 00 Center Received Received Disease [facility] plasminoge plasminoge 00:00: Me dical n n 00 Center activator activator (t-PA) (t-PA) less than less than 24 hours 24 hours prior to prior to arrival arrival Acute Acute Disease Active [facility] ischemic ischemic 11-23 [facility] - stroke stroke 00:00: Medical 00 Center 436 - CVA Diagnosis Active 2012-10-16 Memoria 7-19 10:59:00 l 436 - 00:01: [place] CVA 00 Active 10/09/2012 [facility] [place] Diabetes Problem Resolve 2012-10-18 Me moria Mellitus d 21:11:31 l Diabetes Feliciano n Mellitus Resolved Problem 10/18/2012 [facility] HTN Problem Resolve 2012-10-18 Alfred carmella d 21:11:31 l HTN [place] Resolved Problem 10/18/2012 [facility] Hysterecto Problem Resolve 2012-10-18 Memoria my d 21:11:31 l [place] Hysterecto my Resolved Problem 10/18/2012 HERIBERTOD [facility] TIA Problem Resolve 2012-10-18 Alfred carmella d 21:11:31 l TIA Timothy Resolved Problem 10/18/2012 HERIBERTOD [facility] Diabetes Problem Resolve 2020-01-10 Or moria Mellitus(C d 00:18:11 l onfirmed) Diabetes Her snider Mellitus(C onfirmed) Resolved Problem 01/10/2020 [facility] Hysterecto Problem Resolve 2020-01-10 Memoria my d 00:18:11 l (procedure Feliciano n ) Hysterecto my (procedure ) Resolved Problem 01/10/2020 [facility] Transient Problem Resolve 2020-01-10 M emoria ischemic d 00:18:11 l attack Timothy (disorder) Transient ischemic attack (disorder) Resolved Problem 01/10/2020 [facility] Paresthesi Problem Active 2020-01-10 M emoria a 00:18:11 l (finding) [place] Paresthesi a (finding) Active Problem 01/10/2020 [facility] Neuro Palpitatio Problem Active 2012-10-22 M emoria ns 09:59:17 l [place] Palpitatio ns Active 10/22/2012 [facility] Stroke Problem Active 2012-10-22 Memor ia Syndrome 09:59:17 l Stroke Timothy Syndrome Active 3 [facility] Type 2 Problem Active 2012-10-22 Memor ia Diabetes 09:59:17 l With Type 2 [place] Neurologic Diabetes al With Complicati Neurologic ons - al Uncontroll Complicati ed ons - Uncontroll ed Active 10/22/2012 [facility] Hyperlipid Problem Active 2012-10-22 M emoria emia 09:59:17 l [place] Hyperlipid emia Active 3 [facility] Hypertensi Problem Active 2012-10-22 M emoria on 09:59:17 l Timothy Hypertensi on Active 10/22/2012 [facility] History of Past Illness Condition Condition Condition Status Onset Resolution Last Treating Co mments Source Name Details Category Date Date Treatment Clinician Date Encounter Problem 2018-06-01 2018-06-01 Memoria for 11-16 11:11:51 11:11:51 l screening 03:08: [place] mammogram Encounter 40 for for malignant screening neoplasm mammogram of breast for malignant neoplasm of breast 11/16/2017 06/01/2018 [facility] Women[facility] Allergies, Adverse Reactions, Alerts Allergy Allergy Status Severity Reaction(s) Onset Inactive Treating Comm ents Source Name Type Date Date Clinician Cephalex Propensi Active rash [facility] in ty to 11-23 [facility] - adverse 00:00: Medical reaction 00 Center s Keflex Keflex Active Memoria TABS TABS l [place] Keflex Keflex Active Memoria l Timothy Family History Family Member Diagnosis Comments Start Date Stop Date Source Unknown Family Family History 2012-10-22 2012-10-22 Memori al [place] Member 09:59:17 09:59:17 Social History Social Habit Start Date Stop Date Quantity Comments Source Sex Assigned At [facility] Social History 2020-01-08 2020-01-08 [facility] ermann 04:59:59 04:59:59 Tobacco use and 2016-11-23 2016-11-23 Never used [facility] - exposure 00:00:00 00:00:00 Medical Center Alcohol intake 2016-11-23 2016-11-23 Current drinker HE Torres zhang [facility] - 00:[facility]:00 00:[facility]:00 of alcohol [facility] Center (finding) Smoking Status Start Date Stop Date Source Never smoker [facility] Ordered Filled Start Stop Current Ordering Indication Dosage Frequency Signature Comments Components Source Medication Medication Date Date Medication? Clinician (SIG) Name Name amLODIPine Yes 10mg QD Take [address] (NORVASC) 906 by mouth [facility] - 10 MG 19:42: daily. Medical tablet 42 Center lisinopril- Yes 2{tbl} QD Take [address] hydroCHLORO -06 tablets by [facility] - thiazide 19:42: mouth Medical (PRINZIDE,Z 42 daily. Center ESTORETIC) 20-12.5 mg per tablet glimepiride Yes 4mg Take [address] (AMARYL) 4 06 by mouth [facility] - MG tablet 19:42: every Medical 42 morning Center before breakfast. isosorbide Yes 60mg Q.5D Take [address] mononitrate 06 by mouth 2 [facility] - (IMDUR) 60 19:42: (two) Medica l MG 24 hr 42 times Center tablet daily. metoprolol Yes hypertensio 100mg Q.5D Take [address] (LOPRESSOR) 11-27 n mg by [facility] - 100 MG 19:42: mouth 2 Medical tablet 42 (two) Center times daily. famotidine Yes 20mg Q.5D Take 1 [facility] (PEPCID) 20 11-27 tablet (20 [facility] - MG tablet 00:00: mg total) Med ical 00 by mouth 2 Center (two) times daily. insulin Yes 15U QD Inject [facility] detemir 11-27 0.15 mLs [facility] - (LEVEMIR 00:00: (15 Units Medi ambreen FLEXPEN) 00 total) Center 100 unit/mL subcutaneo (3 mL) InPn usly every injection morning. Aspirin 81 Yes (Active) Me moria MG Oral 8-01 l Tablet 09:59: Timothy 17 Isosorbide Yes (Active) Me moria Mononitrate 8-01 l ER 30 MG 09:59: [place] Oral Tablet 17 Extended Release 24 Hour Lisinopril Yes (Active) Me moria 20 MG Oral 8-01 l Tablet 09:59: Timothy 17 MetFORMIN Yes (Active) Mem oria HCl 500 MG 8-01 l Oral Tablet 09:59: Feliciano n 17 Estradiol 2 Yes (Active) M emoria MG Oral 8-01 l Tablet 09:59: Timothy 17 Lantus 100 Yes (Active) Me moria UNIT/ML 8-01 l Subcutaneou 09:59: Feliciano n s Solution 17 Norvasc 10 Yes (Active) Me moria MG Oral 8-01 l Tablet 09:59: Timothy 17 HydrALAZINE Yes (Active) M emoria HCl [...] Time Performed Performing Clinician Sourc e Hysterectomy [facility] Plan of Care Planned Activity Planned Date Details Comments Source Future Scheduled Test 2012-10-22 09:59:17 Plan of Care [code [facility] = [id number]] Future Scheduled Test 2012-10-01 14:02:26 Plan of Care [code [facility] = [id number]] Encounters Start End Encounter Admission Attending Care Care Encounter Source Date/Time Date/Time Type Type Clinicians Facility Department ID 2020-05-30 2020-05-30 Patient Mert [facility] [id number] 00:00:00 00:00:00 Outreach Eugenio [facility] [id number] [facility] [id number] HANNA [id number] 2020-02-11 2020-02-11 Telemedici Lizette [facility] [id number] 13:06:46 13:36:46 ne Visit Victorina Jerica Rodriguez [id number] [place] [id number] Qamar [id number] [address] 2020-01-07 2020-01-07 [facility]patient [facility] [id number] 08:15:00 23:59:59 Dyllan 00 Darin 2019-12-15 2019-12-15 Hospital Adum, [facility] [id number] 08:11:04 23:59:00 Encounter Victorina Rodriguez [id number] [place] [id number] [place] [id number] 2019-12-10 2019-12-10 Telephone Adum, [facility] [id number] 00:00:00 00:00:00 Victorina Rodriguez [id number] [place] [id number] Professio [id number] [address] 2019-12-07 2019-12-07 Telephone Ad, [facility] [id number] 00:00:00 00:00:00 Victorina Rodriguez [id number] [place] [id number] Professio [id number] [address] 2019-12-07 2019-12-07 [place] Ad, [facility] [id number] 00:00:00 00:00:00 Victorina Rodriguez [id number] [place] [id number] Professio [id number] [address] 2019-12-03 2019-12-03 Office Adum, [facility] [id number] 09:19:27 10:40:16 Visit Victorina Rodriguez [id number] [place] [id number] Professio [id number] [address] 2017-11-12 2017-11-12 Outpatient Ilya, [id number] 11:19:00 23:59:00 Trudy Velasco [id number] 2012-10-22 2012-10-22 Outpatient 3 3 [id number] 04:59:18 04:59:17 2012-10-01 2012-10-01 Outpatient 3 3 [id number] 09:02:50 09:02:26 Results Test Description Test Time Test Comments Results Result Comments Source POCT-GLUCOSE METER 2016-11-27 17:03:00 Test Item Value Reference Range Interpretation Comme nts POC-GLUCOSE METER ([facility]) (test 239 mg/dL 70-110 H TESTED AT [address] code = 1538) [facility] 7[address] 0 POCT-GLUCOSE [id number] 12:13:00 Test Item Value Reference Range Interpretation Comments POC-GLUCOSE METER 287 mg/dL 70-110 H TESTED AT [place] [address] ([facility]) (test code = PALMER Diaz [facility] 1538) [id number] POCT-GLUCOSE [id number] 07:44:00 Test Item Value Reference Range Interpretation Comments POC-GLUCOSE METER 245 mg/dL 70-110 H TESTED AT [place] [address] ([facility]) (test code = PALMER Diaz [facility] 1538) [address] POCT-GLUCOSE [id number] 21:19:00 Test Item Value Reference Range Interpretation Comments POC-GLUCOSE METER 344 mg/dL 70-110 H TESTED AT [place] [address] ([facility]) (test code = KATHRINEMO Joe [facility] 1538) [address] POCT-GLUCOSE [id number] 17:59:00 Test Item Value Reference Range Interpretation Comments POC-GLUCOSE METER 215 mg/dL 70-110 H TESTED AT [place] [address] ([facility]) (test code = PALMER Diaz [facility] 1538) [address]404 POCT-GLUCOSE [id number] 12:57:00 Test Item Value Reference Range Interpretation Comments POC-GLUCOSE METER 251 mg/dL 70-110 H TESTED AT [place] [address] ([facility]) (test code = PALMER Diaz [facility] 1538) 057[address] POCT-GLUCOSE [id number] 08:01:00 Test Item Value Reference Range Interpretation Comments POC-GLUCOSE METER 192 mg/dL 70-110 H TESTED AT [place] [address] ([facility]) (test code = PALMER Diaz [facility] 1538) [address] POCT-GLUCOSE [id number] 02:32:00 Test Item Value Reference Range Interpretation Comments POC-GLUCOSE METER 125 mg/dL 70-110 H TESTED AT [place] [address] ([facility]) (test code = PALMER Diaz [facility] 1538) 48449 POCT-GLUCOSE [id number] 20:52:00 Test Item Value Reference Range Interpretation Comments POC-GLUCOSE METER 136 mg/dL 70-110 H TESTED AT [place] [address] ([facility]) (test code = KATHRINEONEIL Diaz [facility] 1538) [address] POCT-GLUCOSE [id number] 16:19:00 Test Item Value Reference Range Interpretation Comments POC-GLUCOSE METER 243 mg/dL 70-110 H TESTED AT [place] [address] ([facility]) (test code = PALMER Diaz [place] [address]808) [address] POCT-GLUCOSE [id number] 12:27:00 Test Item Value Reference Range Interpretation Comments POC-GLUCOSE METER 351 mg/dL 70-110 H Notified Joe Montgomery MD/TESTED ([facility]) (test code = AT [address] [address] 0 POCT-GLUCOSE [id number] 07:46:00 Test Item Value Reference Range Interpretation Comments POC-GLUCOSE METER 194 mg/dL 70-110 H TESTED AT [place] [address] ([facility]) (test code = PALMER Diaz [place] [address]808) [address] POCT-GLUCOSE [id number] 22:30:00 Test Item Value Reference Range Interpretation Comments POC-GLUCOSE METER 323 mg/dL 70-110 H Notified Joe Montgomery MD/TESTED ([facility]) (test code = AT [place] [address]) [facility] 7703 0 POCT-GLUCOSE [id number] 17:13:00 Test Item Value Reference Range Interpretation Comments POC-GLUCOSE METER 255 mg/dL 70-110 H TESTED AT [place] [address] ([facility]) (test code = PALMER Diaz [place] [address]46808) [address] POCT-GLUCOSE [id number] 11:26:00 Test Item Value Reference Range Interpretation Comments POC-GLUCOSE METER 295 mg/dL 70-110 H TESTED AT [place] [address] ([facility]) (test code = PALMER Diaz [place] [address]46808) [address] [id number] 06:49:00 Test Item Value Reference Range Interpretation Comments RPR SCREEN ([facility]) (test code = Nonreactive Nonreactive 420) POCT-GLUCOSE [id number] 06:35:00 Test Item Value Reference Range Interpretation Comments POC-GLUCOSE METER 227 mg/dL 70-110 H TESTED AT [facility] 6720 (BEAKER) (test code = [place] 1538) [address] TROPONIN [id number] 01:14:00 Test Item Value Reference Range Interpretation [...] NOT APPLICABLE FOR DIALYSIS PATIEN TS. FastingLIPID [id number] 01:08:00 Test Item Value Reference Range Interpretation [...] High >=190 FastingCBC W/PLT COUNT & AUTO [id number] 00:49:00 Test Item Value Reference Range Interpretation [...] (BEAKER) (test code = Normal 762) POCT-GLUCOSE [id number] 22:35:00 Test Item Value Reference Range Interpretation Comments POC-GLUCOSE METER 274 mg/dL 70-110 H TESTED AT [facility] 6720 (BEAKER) (test code = [place] 1538) [address] POCT-GLUCOSE [id number] 17:32:00 Test Item Value Reference Range Interpretation Comments POC-GLUCOSE METER 367 mg/dL 70-110 H Notified R Valentina FRAGA/TESTED (GIANNA) (test code = AT [facility] [address] [place] 8496) [facility] 7703 0 HEMOGLOBIN [id number] 16:47:00 Test Item Value Reference Range Interpretation Comments HEMOGLOBIN A1C 9.5 % 4.3-6.1 H POSSIBLE HEMO GLOBIN C (BEAKER) (test code = VARIAN T NOTED IN 368) HEMOGLOBIN A1C CHROMATOGRAPH. SUGGEST HEMOGLOBIN ELEC TROPHORESIS IF CLINICALLY I NDICATED. VITAMIN [id number] 13:17:00 Test Item Value Reference Range Interpretation Comments VITAMIN B12 (BEAKER) (test code = 633 pg/mL 213816 774) TSH/FREE T4 IF [id number] 13:17:00 Test Item Value Reference Range Interpretation Comments THYROID STIMULATING HORMONE 0.78 uIU/mL 0.35-4.94 (BEAKER) (test code = 772) TROPONIN [id number] 12:56:00 Test Item Value Reference Range Interpretation [...] acute neurological disease, and persistent tachyarrhythmia.BASIC METABOLIC [id number] 12:48:00 Test Item Value Reference Range Interpretation [...] NOT APPLICABLE FOR DIALYSIS PATIEN TS. POCT-GLUCOSE [id number] 12:44:00 Test Item Value Reference Range Interpretation Comments POC-GLUCOSE METER 322 mg/dL 70-110 H Notified R Valentina FRAGA/TESTED (BEAKER) (test code = AT [facility] [address] 1329) [place] [address] CBC W/PLT COUNT & AUTO [id number] 12:32:00 Test Item Value Reference Range Interpretation [...] % 0-1 PERCENT (BEAKER) (test code = 0238)
[2020-07-13 15:26] LABS: Absolute Lymphocytes (CBC) 1.8 K/uL (0.7-4.9); Hematocrit 42.4 % (36.0-45.0); Lymphocytes % 36.1 % (15.3-44.8); MPV 8.7 fL (7.6-11.3)
[2020-07-13] MEDS ORDERED: LABETALOL 20 MG/4ML SYRINGE IV ONE (15:36)
[2020-07-13 15:38] LABS: Protime INR 0.97
--- NOTE | 2020-07-13 15:40 | RAD REPORT ---
EXAM DESCRIPTION: RAD - Chest Single View - 07/13/2020 3:35 pm CLINICAL HISTORY: left arm pain, HTN Chest pain. COMPARISON: Chest Single View dated 04/25/2020; Chest Single View dated 09/24/2019; Chest Single View da josé miguel 04/27/2017; Chest Single View dated 11/23/2016 FINDINGS: Portable technique limits examination quality. The lungs are grossly clear. The heart is upper limit of normal in size. No displaced fractures. IMPRESSION: No acute intrathoracic process suspected.
[2020-07-13 15:52] LABS: BUN Blood Urea Nitrogen 20 mg/dL (7-18); Bicarbonate 25 mmol/L (21-32); Glucose Level 173 mg/dL (74-106); NT PRO-BNP 646 pg/mL (<125); Potassium 3.8 mmol/L (3.5-5.1); Sodium Level 143 mmol/L (136-145); Troponin (Emerg Dept Use Only) < 0.02 ng/mL (0.0-0.045)
--- NOTE | 2020-07-13 16:12 | RAD REPORT ---
EXAM DESCRIPTION: CT - Head Brain Wo Cont - 07/13/2020 4:06 pm CLINICAL HISTORY: left arm pain/fingers tingling, hx of TIA Headache, drowsiness COMPARISON: Ct Stroke Brain Wo Cont dated 09/24/2019; Head Brain Wo Cont dated 04/27/2017 TECHNIQUE: All CT scans are performed using dose optimization technique as appropriate and may inclu de automated exposure control or mA/KV adjustment according to patient size. FINDINGS: No intracranial hemorrhage, hydrocephalus or extra-axial fluid collection.Mild generalized brain atrophy is present with mild periventricular and deep white matter chronic microvascular ische lorelei changes.No areas of brain edema or evidence of midline shift. The paranasal sinuses and mastoids are clear. The calvarium is intact. IMPRESSION: No acute intracranial abnormality.
--- NOTE | 2020-07-13 16:24 | RAD REPORT ---
EXAM DESCRIPTION: CT - Angio Aorta For Dissection - 07/13/2020 4:06 pm CLINICAL HISTORY: Chest pain radiating to the back. HTN, left arm pain COMPARISON: No comparisons TECHNIQUE: CT angiography of the aorta was performed with MIPs. All CT scans are performed using dose optimization technique as appropriate and may include automated exposure control or mA/KV adjustment according to patient size. FINDINGS: A left aortic arch is present with normal branching pattern of the great vessels.No acute aortic finding is seen such as aneurysm, penetrating ulcer or dissection. The celiac axis, SMA, CARLENE and renal arteries are patent. No evidence of pulmonary embolism. The lungs are clear. The liver demonstrates no focal mass or biliary dilatation.The spleen, pancreas, adrenal glands and k idneys are within normal limits for arterial phase imaging. No bowel obstruction, free fluid or abscess.No pathologic enlarged lymphadenopathy identified. No fracture or worrisome bone lesion seen. IMPRESSION: No acute aortic finding is demonstrated.
--- NOTE | 2020-07-13 17:17 | ER ---
Nurse's Notes [facility] Name: Aziza Rich Age: 65 yrs Sex: Female : 1955 Arrival Date: 07/13/2020 Time: 14:27 Bed 6 Private MD: Tin Hart V Diagnosis: Tachycardia, unspecified;Pain in left arm;Chest pain, unspecified Presentation: 07/13 14:36 Chief complaint: Patient states: Pain, Numbness and tingling of L arm 30 - 45 mins RN DOCUMENTATION. ca1 Denies chest Pain. VS at home RN DOCUMENTATION BP 215/85, HR 145. Coronavirus screen: Client denies travel out of the [place] in the last 14 days. At this time, the client does not indicate any symptoms associated with coronavirus-19. Ebola Screen: Patient negative for fever greater than or equal to 101.5 degrees Fahrenheit, and additional compatible Ebola Virus Disease symptoms Patient denies exposure to infectious person. Patient denies travel to an Ebola-affected area in the 21 days before illness onset. No symptoms or risks identified at this time. Initial Sepsis Screen: Does the patient meet any 2 criteria? No. Patient's initial sepsis screen is negative. Does the patient have a suspected source of infection? No. Patient's initial sepsis screen is negative. Risk Assessment: Do you want to hurt yourself or someone else? Patient reports no desire to harm self or others. Onset of symptoms was July 13, 2020. 14:36 Method Of Arrival: Wheelchair ca1 14:36 Acuity: CHRISTY 2 ca1 Historical: - Allergies: 15:33 Keflex; ld1 - Home Meds: 15:33 amlodipine 10 mg tab 1 tab once daily [Active]; atorvastatin 80 mg Oral tab 1 tab once ld1 daily [Active]; hydralazine 100 mg Oral tab 1 tab 3 times per day [Active]; hydrochlorothiazide 25 mg Oral tab 1 tab once daily [Active]; Jardiance 25 mg Oral tab 1 tab once daily [Active]; Levemir 100 unit/mL subcutaneous soln 60 unit daily [Active]; metformin 500 mg Oral tab 1 tab 2 times per day [Active]; metoprolol tartrate 100 mg Oral tab 1 tab 2 times per day [Active]; paroxetine 7.5 mg Oral once daily [Active]; Plavix 75 mg Oral tab 1 tab once daily [Active]; spironolactone 25 mg Oral tab 1 tab once daily [Active]; Trulicity 1.5 mg/0.5 mL subcutaneous pnij 0.5 mL once wkly [Active]; Plavix 75 mg Oral tab 1 tab once daily [Active]; Klor-Con M20 20 mEq Oral TbTQ 1 tab once daily [Active]; - PMHx: 14:38 Diabetes - IDDM; Hyperlipidemia; Hypertension; Multiple Sclerosis; Sleep Apnea; TIA ca1 2013 \\T\\ 2014; - PSHx: 14:38 Foot sx; Hysterectomy; ca1 - Immunization history:: Client reports having NOT received the Covid vaccine. Flu vaccine is not up to date. - Social history:: Smoking status: Patient denies any tobacco usage or history of. - Family history:: not pertinent. - Hospitalizations: : No recent hospitalization is reported. Screenin:11 Abuse screen: Denies threats or abuse. Denies injuries from another. Nutritional ld1 screening: No deficits noted. Tuberculosis screening: No symptoms or risk factors identified. Fall Risk IV access (20 points). Assessment: 15:11 General: Appears in no apparent distress. uncomfortable, Behavior is calm, cooperative, ld1 appropriate for age. Pain:. Neuro: Level of Consciousness is awake, alert, obeys commands, Oriented to person, place, time, situation, Appropriate for age Software Applications Engineer are Gait is steady, Speech is normal, Facial symmetry appears normal, Pupils are PERRLA, Intact Numbness in left arm Reports numbness. Cardiovascular: Reports shortness of breath, Capillary refill < 3 seconds Patient's skin is warm and dry. Rhythm is regular. Respiratory: Airway is patent Respiratory effort is even, labored, Respiratory pattern is regular, symmetrical, Onset: The symptoms/episode began/occurred today. GI: Abdomen is round non-distended, Bowel sounds present X 4 quads. : No deficits noted. EENT: No deficits noted. Derm: No deficits noted. Musculoskeletal: No deficits noted. 16:35 Reassessment: Patient and/or family updated on plan of care and expected duration. Pain ld1 level reassessed. Patient is alert, oriented x 3, equal unlabored respirations, skin warm/dry/pink. ERP at bedside discussing POC. Patient denies pain at this time. Vital Signs: 14:36 BP 180 / 81; Pulse 91; Resp 22; Temp 97.6(TE); Pulse Ox 100% ; Weight 90.72 kg; Height ca1 5 ft. 2 in. (157.48 cm) (R); Pain 10/10; 15:11 BP 181 / 89; Pulse 81; Resp 26; Temp 97.7(TE); Pulse Ox 100% on R/A; Weight 90.72 kg; ld1 Height 5 ft. 3 in. (160.02 cm); Pain 0/10; 16:35 BP 159 / 64; Pulse 78; Resp 20; Pulse Ox 100% on R/A; Pain 0/10; ld1 18:25 BP 159 / 64; Pulse 73; Resp 18; Pulse Ox 99% ; Pain 0/10; ld1 15:11 Body Mass Index 35.43 (90.72 kg, 160.02 cm) ld1 NIH Stroke Scale Scores: 14:58 NIHSS Score: 0 customer operations intern Course: 14:27 Patient arrived in ED. am2 14:28 Tin Hart MD is Private Physician. am2 14:38 Triage completed. ca1 14:38 Arm band placed on right wrist. ca1 14:42 Lee Sierra MD is Attending Physician. rn 15:11 Ilda Kelley RN is Primary Nurse. ap3 15:11 Patient has correct armband on for positive identification. Placed in gown. Bed in low ld1 position. Call light in reach. Side rails up X2. drafter detail on. Pulse ox on. NIBP on. Door closed. Noise minimized. Warm blanket given. 15:11 No provider procedures requiring assistance completed. Inserted saline lock: 22 gauge ld1 in right forearm, using aseptic technique. Missed attempt(s): 22 gauge in right antecubital area. 15:28 Primary Nurse role handed off by Ilda Kelley, BENNY ld1 15:28 Leeann Earl, BENNY is Primary Nurse. ld1 15:35 XRAY Chest (1 view) In Process Unspecified. EDMS 16:06 CT Aorta for Dissection In Process Unspecified. EDMS 16:06 CT Head Brain wo Cont In Process Unspecified. EDMS 17:16 Tin Hart MD is Hospitalizing Provider. rn 17:43 COVID-19 : Document "Date of Symptom Onset" if Symptomatic. Sent. ap3 18:17 CORONAVIRUS Sent. ld1 22:41 IV is patent, with fluids infusing freely, Patient admitted, IV remains in place. rv Administered Medications: 15:20 Drug: Labetalol 5 mg Route: IVP; Infused Over: 2 mins; Site: right forearm; ld1 15:51 Follow up: Response: No adverse reaction ld1 17:00 Drug: Aspirin Chewable Tablet 324 mg Route: PO; ap3 18:17 Follow up: Response: No adverse reaction ld1 Outcome: 17:17 Decision to Hospitalize by Provider. rn 22:41 Admitted to Med/surg accompanied by tech, via wheelchair, room 229, Other sbar Report rv called to PAM ZAPATA 22:41 Condition: good 22:41 Instructed on the need for admit. 22:49 Patient left the ED. rv NIH Stroke Scale - NIH Stroke Score Date: 07/13/2020 Time: 14:58 Total Score = 0 1a. Level of Consciousness (LOC) - 0(Alert) 1b. Level of Consciousness (LOC) (Year \\T\\ Age) - 0(Both) 1c. LOC Commands (Open \\T\\ Closes Eyes/Brim Buster) - 0(Both) 2. Best Gaze (Lateral Gaze Paresis) - 0(Normal) 3. Visual Field Loss - 0(No visual loss) 4. Facial Palsy - 0(Normal) 5a. Left Arm: Motor (10-second hold) - 0(No drift) 5b. Right Arm: Motor (10-second hold) - 0(No drift) 6a. Left Leg: Motor (5-second hold - always test supine) - 0(No drift) 6b. Right Leg: Motor (5-second hold - always test supine) - 0(No drift) 7. Limb Ataxia (finger/nose \\T\\ heel/suazo - test with eyes open) - 0(Absent) 8. Sensory Loss (pinprick arms/legs/face) - 0(Normal) 9. Best Language: Aphasia (description/naming/reading) - 0(No aphasia) 10. Dysarthria (speech clarity - read or repeat words) - 0(Normal) 11. Extinction and Inattention (visual/tactile/auditory/spatial/personal) - 0(No abnormality) Initials: rn Signatures: Dispatcher [employer] EDLee Ramírez MD MD rn Turner, Ilda am2 Jian Victoria RN RN bp Ilda Kelley, RN RN ap3 Francisco Beckett, BENNY ZAPATA rv Allyn Lema RN RN ca1 Leeann Earl, RN RN ld1 Corrections: (The following items were deleted from the chart) 14:42 14:36 Chief complaint: Patient states: Numbness and tingling of L arm 30 - 45 ca1 mins RN DOCUMENTATION. Denies chest Pain. VS at home RN DOCUMENTATION BP 215/85, HR 145 ca1 15:24 15:11 General: Appears in no apparent distress. uncomfortable, Behavior is bp calm, cooperative, appropriate for age, ap3 15:27 15:11 Neuro: Level of Consciousness is awake, alert, obeys commands, Oriented bp to person, place, time, situation, Appropriate for age Software Applications Engineer are equal bilaterally Gait is steady, Speech is normal, Facial symmetry appears normal, Pupils are PERRLA, Intact Numbness in left arm Reports numbness in left arm ap3 15:28 15:11 General: Appears in no apparent distress. uncomfortable, Behavior is ld1 calm, cooperative, appropriate for age, bp 15:29 15:11 General: Appears in no apparent distress. uncomfortable, Behavior is ld1 calm, cooperative, appropriate for age, ld1 15:29 15:11 General: Appears in no apparent distress. uncomfortable, Behavior is ld1 calm, cooperative, appropriate for age, ld1 15:31 15:11 Pain: Complains of pain in left arm ap3 ld1 15:31 15:11 Cardiovascular: Reports shortness of breath, Capillary refill < 3 seconds ld1 Patient's skin is warm and dry. Rhythm is regular ap3 15:31 15:11 Respiratory: Airway is patent Respiratory effort is even, labored, ld1 Respiratory pattern is regular, symmetrical, Onset: The symptoms/episode began/occurred today, ap3 15:31 15:11 GI: Abdomen is round non-distended, Bowel sounds present X 4 quads. ap3 ld1 15:31 15:11 : No deficits noted. ap3 ld1 15:31 15:11 EENT: No deficits noted. ap3 ld1 15:31 15:11 Derm: No deficits noted. ap3 ld1 15:31 15:11 Musculoskeletal: No deficits noted. ap3 ld1 15:31 15:11 Neuro: Level of Consciousness is awake, alert, obeys commands, Oriented ld1 to person, place, time, situation, Appropriate for age Software Applications Engineer are equal bilaterally Gait is steady, Speech is normal, Facial symmetry appears normal, Pupils are PERRLA, Intact Numbness in left arm Reports numbness in left arm bp 15:31 15:11 General: Appears in no apparent distress. uncomfortable, Behavior is ld1 calm, cooperative, appropriate for age, ld1 15:33 14:38 Allergies: Keflex; ca1 ld1 15:34 15:11 BP 181 / 89; Pulse 81bpm; Resp 26bpm; Pulse Ox 100% RA; Temp 97.7F ld1 Temporal; 90.72 kg; Height 5 ft. 3 in.; BMI: 35.4; ap3 15:35 15:11 Patient has correct armband on for positive identification. Placed in ld1 gown. Bed in low position. Call light in reach. Side rails up X2. ap3 15: 15:11 drafter detail on. Pulse ox on. NIBP on. ap3 ld1 15:35 15:11 Door closed. Noise minimized. Warm blanket given. ap3 ld1 15:35 15:11 Abuse screen: Denies threats or abuse. Denies injuries from another. ap3 ld1 15:35 15:11 Nutritional screening: No deficits noted. ap3 ld1 15:35 15:11 Tuberculosis screening: No symptoms or risk factors identified. ap3 1 15:35 15:11 Fall Risk IV access (20 points). ap3 ld1 15:36 15:11 No provider procedures requiring assistance completed. ap3 ld1 15:36 15:11 Inserted saline lock: 22 gauge in right forearm, using aseptic technique. ld1 Missed attempt(s): 22 gauge in right antecubital area. ap3
--- NOTE | 2020-07-13 17:17 | EDPHYS ---
Physician Documentation [facility] Name: Aziza Rich Age: 65 yrs Sex: Female : 1955 Arrival Date: 07/13/2020 Time: 14:27 Bed 6 Private MD: Tin Hart V ED Physician Lee Sierra HPI: 07/13 14:53 This 65 yrs old Black Female presents to ER via Wheelchair with complaints of High rn Blood Pressure, Arm Pain - left. 14:53 The patient has elevated blood pressure and discovered this work. Onset: The rn symptoms/episode began/occurred 45 minute(s) ago. Modifying factors:. Associated signs and symptoms: Pertinent positives: lightheadedness, left arm pain. Severity of symptoms: At its worst the blood pressure was severe, in the emergency department the blood pressure is improved. The patient has experienced similar episodes in the past. The patient has not recently seen a physician. Reports at work, 45 min prior to arrival felt sudden onset left arm pain, no weakness, assoc with feeling anxious, palpitations, and lightheaded. Has had TIAs in past but was left arm and left leg weakness and tingling. Today only reports tingling in left hand/fingers but none in arm. No injury. No chest pain/sob. Reports vitals at work included 145 HR and BP 200s. . Historical: - Allergies: 15:33 Keflex; ld1 - Home Meds: 15:33 amlodipine 10 mg tab 1 tab once daily [Active]; atorvastatin 80 mg Oral tab 1 tab once ld1 daily [Active]; hydralazine 100 mg Oral tab 1 tab 3 times per day [Active]; hydrochlorothiazide 25 mg Oral tab 1 tab once daily [Active]; Jardiance 25 mg Oral tab 1 tab once daily [Active]; Levemir 100 unit/mL subcutaneous soln 60 unit daily [Active]; metformin 500 mg Oral tab 1 tab 2 times per day [Active]; metoprolol tartrate 100 mg Oral tab 1 tab 2 times per day [Active]; paroxetine 7.5 mg Oral once daily [Active]; Plavix 75 mg Oral tab 1 tab once daily [Active]; spironolactone 25 mg Oral tab 1 tab once daily [Active]; Trulicity 1.5 mg/0.5 mL subcutaneous pnij 0.5 mL once wkly [Active]; Plavix 75 mg Oral tab 1 tab once daily [Active]; Klor-Con M20 20 mEq Oral TbTQ 1 tab once daily [Active]; - PMHx: 14:38 Diabetes - IDDM; Hyperlipidemia; Hypertension; Multiple Sclerosis; Sleep Apnea; TIA ca1 2013 \\T\\ 2014; - PSHx: 14:38 Foot sx; Hysterectomy; ca1 - Immunization history:: Client reports having NOT received the Covid vaccine. Flu vaccine is not up to date. - Social history:: Smoking status: Patient denies any tobacco usage or history of. - Family history:: not pertinent. - Hospitalizations: : No recent hospitalization is reported. ROS: 14:53 Constitutional: Negative for fever, chills, and weight loss, Eyes: Negative for injury, rn pain, redness, and discharge, Neck: Negative for injury, pain, and swelling, Cardiovascular: Negative for chest pain, and edema, + palpitations Respiratory: Negative for cough, wheezing, and pleuritic chest pain, + sob (attributes to wearing mask). Abdomen/GI: Negative for abdominal pain, nausea, vomiting, diarrhea, and constipation, MS/Extremity: Negative for injury and deformity, Skin: Negative for injury, rash, and discoloration, Neuro: Negative for headache, weakness, numbness, and seizure. Exam: 14:53 Constitutional: This is a well developed, well nourished patient who is awake, alert, rn appears anxious and in hyperventilating Head/Face: Normocephalic, atraumatic. Eyes: Pupils equal round and reactive to light, extra-ocular motions intact. Lids and lashes normal. Conjunctiva and sclera are non-icteric and not injected. Cornea within normal limits. Periorbital areas with no swelling, redness, or edema. ENT: MMM Cardiovascular: Regular rate and rhythm. No pulse deficits. Respiratory: + hyperventilating, no wheezing, speaking full sentences and able to slow her breathing Abdomen/GI: soft, non-tender Skin: Warm, dry with normal turgor. Normal color with no rashes, no lesions, and no evidence of cellulitis. MS/ Extremity: Pulses equal, no cyanosis. Neurovascular intact. Full, normal range of motion. Equal circumference. Neuro: Awake and alert, GCS 15, oriented to person, place, time, and situation. Cranial nerves II-XII grossly intact. Motor strength 5/5 in all extremities. Sensory grossly intact. Cerebellar exam normal. Vital Signs: 14:36 BP 180 / 81; Pulse 91; Resp 22; Temp 97.6(TE); Pulse Ox 100% ; Weight 90.72 kg; Height ca1 5 ft. 2 in. (157.48 cm) (R); Pain 10/10; 15:11 BP 181 / 89; Pulse 81; Resp 26; Temp 97.7(TE); Pulse Ox 100% on R/A; Weight 90.72 kg; ld1 Height 5 ft. 3 in. (160.02 cm); Pain 0/10; 16:35 BP 159 / 64; Pulse 78; Resp 20; Pulse Ox 100% on R/A; Pain 0/10; ld1 18:25 BP 159 / 64; Pulse 73; Resp 18; Pulse Ox 99% ; Pain 0/10; ld1 15:11 Body Mass Index 35.43 (90.72 kg, 160.02 cm) ld1 NIH Stroke Scale Scores: 14:58 NIHSS Score: 0 rn MDM: 14:42 Patient medically screened. rn 15:08 ED course: Pt able to calm her breathing, and tingling went away as hyperventilation rn went away. Is currently talking on phone using left arm without problem. States feels better already, just having pain to left arm. NIH 0. Will get CT head but does not seem like TIA/CVA, thus will not give TPA . Discussed with with patient. . 15:54 ED course: Pt feeling much better. Reports pain improved as well.. rn 17:13 Differential diagnosis: hypertensive crisis, Malignant HTN, CVA, AMI, arrhythmia, afib. rn Data reviewed: vital signs, nurses notes, lab test result(s), EKG, radiologic studies, CT scan, plain films, and as a result, I will admit patient. Counseling: I had a detailed discussion with the patient and/or guardian regarding: the historical points, exam findings, and any diagnostic results supporting the discharge/admit diagnosis, lab results, radiology results, the need for further work-up and treatment in the hospital. Response to treatment: the patient's symptoms have markedly improved after treatment, and as a result, I will admit patient. Admission orders: after a detailed discussion of the patient's condition and case, the admit orders are written by me. ED course: Spoke with Dr. Hart, will admit for observation with cardiology consultation.. 07/13 14:52 Order name: Basic Metabolic Panel; Complete Time: 15:53 rn 07/13 14:52 Order name: CBC with Diff; Complete Time: 15:53 07/13 14:52 Order name: NT PRO-BNP; Complete Time: 15:53 07/13 14:52 Order name: PT-INR; Complete Time: 15:53 07/13 14:52 Order name: Troponin (emerg Dept Use Only); Complete Time: 15:53 07/13 17:33 Order name: COVID-19 : Document "Date of Symptom Onset" if Symptomatic. aa5 07/13 14:52 Order name: XRAY Chest (1 view); Complete Time: 15:53 07/13 14:52 Order name: EKG; Complete Time: 14:52 07/13 14:52 Order name: CT Aorta for Dissection; Complete Time: 16:25 07/13 14:52 Order name: CT Head Brain wo Cont; Complete Time: 16:20 07/13 18:04 Order name: CORONAVIRUS EDOK 07/13 19:28 Order name: SARS-COV-2 RT PCR [facility] 07/13 14:52 Order name: Cardiac monitoring; Complete Time: 14:53 07/13 14:52 Order name: EKG - Nurse/Tech; Complete Time: 14:53 07/13 14:52 Order name: IV Saline Lock; Complete Time: 15:16 07/13 14:52 Order name: Labs collected and sent; Complete Time: 15:16 07/13 14:52 Order name: O2 Per Protocol; Complete Time: 14:53 07/13 14:52 Order name: O2 Sat Monitoring; Complete Time: 14:53 07/13 16:49 Order name: Diet Ada 1800 Brayan; Complete Time: 16:50 aa5 Administered Medications: 15:20 Drug: Labetalol 5 mg Route: IVP; Infused Over: 2 mins; Site: right forearm; ld1 15:51 Follow up: Response: No adverse reaction ld1 17:00 Drug: Aspirin Chewable Tablet 324 mg Route: PO; ap3 18:17 Follow up: Response: No adverse reaction ld1 Disposition: 07/13/20 17:17 Hospitalization ordered by Tin Hart for Observation. Preliminary diagnosis are Tachycardia, unspecified, Pain in left arm, Chest pain, unspecified. - Bed requested for Telemetry/MedSurg (observation). - Status is Observation. rv - Condition is Stable. - Problem is new. - Symptoms have improved. NIH Stroke Scale - NIH Stroke Score Date: 07/13/2020 Time: 14:58 Total Score = 0 1a. Level of Consciousness (LOC) - 0(Alert) 1b. Level of Consciousness (LOC) (Year \\T\\ Age) - 0(Both) 1c. LOC Commands (Open \\T\\ Closes Eyes/Target Protection Specialist) - 0(Both) 2. Best Gaze (Lateral Gaze Paresis) - 0(Normal) 3. Visual Field Loss - 0(No visual loss) 4. Facial Palsy - 0(Normal) 5a. Left Arm: Motor (10-second hold) - 0(No drift) 5b. Right Arm: Motor (10-second hold) - 0(No drift) 6a. Left Leg: Motor (5-second hold - always test supine) - 0(No drift) 6b. Right Leg: Motor (5-second hold - always test supine) - 0(No drift) 7. Limb Ataxia (finger/nose \\T\\ heel/suazo - test with eyes open) - 0(Absent) 8. Sensory Loss (pinprick arms/legs/face) - 0(Normal) 9. Best Language: Aphasia (description/naming/reading) - 0(No aphasia) 10. Dysarthria (speech clarity - read or repeat words) - 0(Normal) 11. Extinction and Inattention (visual/tactile/auditory/spatial/personal) - 0(No abnormality) Initials: rn Signatures: Dispatcher [employer] Carlene Lamas RN RN iw Nieto, Roman, MD MD rn Prokisch, Amanda, RN RN ap3 Francisco Beckett RN RN rv AcobAllyn RN RN ca1 Leeann Earl RN RN ld1 Corrections: (The following items were deleted from the chart) 15:33 14:38 Allergies: Keflex; ca1 ld1 22:23 17:17 Hospitalization Ordered by Tin Hart MD for Observation. Preliminary iw diagnosis is Tachycardia, unspecified; Pain in left arm; Chest pain, unspecified. Bed requested for Telemetry/MedSurg (observation). Status is Observation. Condition is Stable. Problem is new. Symptoms have improved. rn 22:49 22:23 07/13/2020 17:17 Hospitalization Ordered by Tin Hart MD for rv Observation. Preliminary diagnosis is Tachycardia, unspecified; Pain in left arm; Chest pain, unspecified. Bed requested for Telemetry/MedSurg (observation). Status is Observation. Condition is Stable. Problem is new. Symptoms have improved. iw
[2020-07-13] MEDS ORDERED: ASPIRIN 81 MG CHEWABLE TABLET ONE (17:25)
[2020-07-13] MEDS ORDERED: ONDANSETRON 4 MG/2 ML VIAL IV PRN (22:42)
[2020-07-13 22:48] VITALS: BMI 36.6
[2020-07-14 06:35] LABS: Absolute Lymphocytes (CBC) 2.2 K/uL (0.7-4.9); Basophils % 1.4 % (0-1.3); Hematocrit 38.5 % (36.0-45.0); Lymphocytes % 43.3 % (15.3-44.8); MPV 8.5 fL (7.6-11.3); RBC Red Blood Cell Count 4.65 M/uL (3.86-4.86)
[2020-07-14 06:51] LABS: BUN Blood Urea Nitrogen 17 mg/dL (7-18); Bicarbonate 27 mmol/L (21-32); Glucose Level 140 mg/dL (74-106); Potassium 3.7 mmol/L (3.5-5.1); Sodium Level 142 mmol/L (136-145)
[2020-07-14] MEDS ORDERED: Dulaglutide [Trulicity] 1.5 MG/0.5 ML Pen.Injctr SQ SCH (07:15)
[2020-07-14] MEDS: HYDRALAZINE HCL 25 MG TABLET PO SCH ×2 (08:38→13:41)
[2020-07-14] MEDS ORDERED: CLOPIDOGREL 75 MG TABLET PO SCH (09:00)
[2020-07-14] MEDS ORDERED: hydroCHLOROthiazide 25 MG TAB PO SCH (09:00)
[2020-07-14] MEDS ORDERED: ENOXAPARIN 40 MG/0.4 ML SQ SCH (09:00)
[2020-07-14] MEDS ORDERED: METOPROLOL TAR 50 MG TAB PO SCH (09:00)
[2020-07-14] MEDS ORDERED: INSULIN GLARGINE 100 UNITS/ML SQ SCH (09:00)
[2020-07-14] MEDS ORDERED: POTASSIUM CL SA 10 MEQ TAB PO SCH (09:00)
[2020-07-14] MEDS ORDERED: AMLODIPINE 10 MG TAB PO SCH (09:00)
[2020-07-14] MEDS ORDERED: METFORMIN HCL 500 MG TAB PO SCH ×2 (09:00→17:00)
[2020-07-14] MEDS ORDERED: ASPIRIN EC 81 MG TAB PO SCH (09:00)
[2020-07-14 11:23] LABS: Anisocytosis SLIGHT; Blood Morphology Comment NOTED (NOT SEEN); Platelet Estimate ADEQ
[2020-07-14 11:43] VITALS: O2SAT 96
[2020-07-14 15:09] VITALS: BP 121/58; TEMP 97.4
--- NOTE | 2020-07-14 18:24 | P.SSS ---
Patient History Date of Service: 07/14/20 Reason for admission: PALPITATIONS. History of Present Illness: MS. [place] IS A DIABETIC WITH HTN, WHO HAD NORMAL CATH PER DR. ANGELES, COMES WITH PALPITATIONS AT WORK. SHE IS STABLE, HAS NO CHST PAIN. DR. ANGELES RAISED HER METOPROLOL AND SHE WAS ABLE TO GO HOME. THERE IS NO OTHER ACUTE SYMPTOMS. Allergies cephalexin monohydrate [From Keflex] Allergy (Verified 02/14/20 11:40) Rash Home medications list reviewed: Yes Home Medications: Amlodipine [Norvasc*] 10 mg PO DAILY 04/26/20 Atorvastatin Calcium [Lipitor] 80 mg PO BEDTIME 04/26/20 Clopidogrel Bisulfate [Plavix*] 75 mg PO DAILY 04/26/20 Dulaglutide [Trulicity] 1.5 mg SQ Q7D 04/26/20 Empagliflozin [Jardiance] 25 mg PO DAILY 04/26/20 Hydralazine [Apresoline*] 100 mg PO TID 04/26/20 Insulin Detemir [Levemir] 60 units SQ DAILY 04/26/20 Metformin HCl 500 mg PO BID 04/26/20 Metoprolol Tartrate 100 mg PO BID 04/26/20 PARoxetine HCl [Paxil] 7.5 mg PO BEDTIME 04/26/20 hydroCHLOROthiazide [Hydrochlorothiazide*] 25 mg PO DAILY 04/26/20 Aspirin [Aspirin EC] 81 mg PO DAILY 07/14/20 Potassium Oral Tab [Klor-Con 10 mEq Tab*] 20 meq PO DAILY 07/14/20 - Past Medical/Surgical History Has patient received pneumonia vaccine in the past: No Diabetic: Yes -: Diabetis IDDM -: HTN -: High Cholesterol -: Multiple sclerosis -: Sleep apnea -: TIA x2 (2015, 2018) -: Irritable Bowel Syndrome -: Foot Surgery -: Hysterectomy -: Cataract Sx - Family History Mother -: Hypertension, Diabetes - Social History Smoking Status: Unknown if ever smoked Alcohol use: Yes CD- Drugs: No Caffeine use: No Place of Residence: Home Review of Systems 10-point ROS is otherwise unremarkable Physical Examination - Vital Signs Temperature: 97.4 F Blood Pressure: 121/58 Pulse: 73 Respirations: 16 Pulse Ox (%): 99 - Physical Exam General: Alert, In no apparent distress HEENT: Atraumatic, PERRLA, Mucous membr. moist/pink, EOMI, Sclerae nonicteric Neck: Supple, 2+ carotid pulse no bruit, No LAD, Without JVD or thyroid abnormality Respiratory: Clear to auscultation bilaterally, Normal air movement Cardiovascular: Regular rate/rhythm, Normal S1 S2 Gastrointestinal: Normal bowel sounds, No tenderness Musculoskeletal: No tenderness Integumentary: No rashes Neurological: Normal gait, Normal speech, Normal strength at 5/5 x4 extr, Normal tone, Normal affect Lymphatics: No axilla or inguinal lymphadenopathy - Diagnosis (Problem(s)) (1) Heart palpitations Status: Acute Plan: METOPROLOL RAISED TO TID. (2) Diabetes Status: Chronic Plan: CHECK LDL AND A1C. FU IN OFFICE. COMPLIANCE IS POOR. Qualifiers: Diabetes mellitus type: type 2 (3) HTN (hypertension) Status: Chronic Qualifiers: Hypertension type: essential hypertension Qualified Code(s): I10 - Essential (primary) hypertension - Disposition Disposition: ROUTINE DISCHARGE Condition: GOOD
[2020-07-14] MEDS ORDERED: HOME MED 1 EA UNK (Paroxetine Hcl [Paxil] 20 MG Tablet) PO SCH (21:00)
[2020-07-14] MEDS ORDERED: ATORVASTATIN 80 MG TAB PO SCH (21:00)
--- NOTE | 2020-07-15 08:01 | EKG ---
Test Date: 2020-07-13 Test Time: 14:47:16 Auto Painter Helper: MARY MEASUREMENT RESULTS: Intervals: Rate: 85 CT: 144 QRSD: 72 QT: 378 QTc: 449 [place]: P: 40 CT: 144 QRS: 33 T: 106 INTERPRETIVE STATEMENTS: Normal sinus rhythm T wave abnormality, consider lateral ischemia Abnormal ECG Compared to ECG 04/26/2020 07:59:05 Prolonged QT interval no longer present T-wave abnormality still present Possible ischemia still present Electronically Signed On 07-15-20 07:58:13 CDT by Mario Yang
--- NOTE | 2020-07-15 13:23 | CON ---
Date of Consultation: 07/14/2020 Reason For Consultation: Atypical chest pain and palpitation. History Of Present Illness: Ms. Rich is a 65-year-old woman with history of hypertension, diabet es, multiple sclerosis, TIA, sleep apnea, who came in with palpitations, left arm pain. No nausea, v omiting, diaphoresis, PND, orthopnea, pedal edema, palpitations, or syncope. She had a slightly elev ated troponin of 0.08. Echocardiogram showed severe left ventricular hypertrophy in January 2020. She had a normal catheterization at that point. She has also had a negative renal angiogram. Her bl ood pressure has been very labile. Past Medical History: As stated above. Allergies: HER ALLERGY INCLUDES CEPHALEXIN. Review of Systems: Positive for recent sinus infection and allergies. Social History: Negative. Family History: Negative. Medications: At home include Trulicity, aspirin Norvasc, metformin, Paxil, Lipitor, metoprolol, Plav ix, insulin, hydralazine, Jardiance, potassium, hydrochlorothiazide, and Aldactone. Physical Examination: General: She was pleasant. Vital Signs: Stable. Afebrile. HEENT: Negative. Neck: Supple. No bruit. Chest: Clear. Cardiac: Revealed a regular rhythm and rate with S4 gallops. No murmurs. No rubs. Abdomen: Benign. Extremities: Revealed no clubbing, cyanosis, or edema. Diagnostic Data: Unremarkable. BNP and troponin were mentioned earlier in the H and P. 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 I would increase her metoprolol dose from 100 b.i.d. to 100 three times a day. Hopefully that wi ll help with both. Continue her rest of her regimen for diabetes and TIA and sleep apnea as well as dyslipidemia. I do not think she needs any further cardiac workup at this point. I would just incre ase her metoprolol to 3 times a day and send her home. I will see her in the office in the next week or 2. ESTELA/TONIE Voice ID: [id number] Report ID: [id number]
[2020-07-15] MEDS ORDERED: METOPROLOL TAR 50 MG TAB PO ONE (16:00)
== END 2020-07-14 16:39 | disposition home or self-care (01) ==
LOC: ER 14:26 → ERHOLD 17:20 → 2ND 22:41
PROVIDERS: ADMIT Internal Medicine; ATTEND Internal Medicine
DX: R00.2 Palpitations (principal); R07.89 Other chest pain; I10 Essential (primary) hypertension; R00.0 Tachycardia, unspecified; E11.9 Type 2 diabetes mellitus without complications; E78.5 Hyperlipidemia, unspecified; R77.8 Other specified abnormalities of plasma proteins; M79.602 Pain in left arm; E78.00 Pure hypercholesterolemia, unspecified; G47.30 Sleep apnea, unspecified; G35 Multiple sclerosis; K58.9 Irritable bowel syndrome, unspecified; Z20.822 Contact with and (suspected) exposure to COVID-19; Z86.73 Personal history of transient ischemic attack (TIA), and cerebral infarction without residual deficits; Z79.02 Long term (current) use of antithrombotics/antiplatelets; Z79.82 Long term (current) use of aspirin; Z79.4 Long term (current) use of insulin; Z79.899 Other long term (current) drug therapy; Z88.1 Allergy status to other antibiotic agents; Z90.710 Acquired absence of both cervix and uterus; Z83.3 Family history of diabetes mellitus; Z82.49 Family history of ischemic heart disease and other diseases of the circulatory system
CPT/HCPCS: 93005; 85025 ×2; 80048 ×2; 36415; 83721; 85610; 82947 ×3; 83036; 84484 ×3; 83880; 70450; 71275; 74175; 71045; 96374; 99285; U0003; Q9967; J1650; G0378; J1815